=== PATIENT | male | born 1970 | race Caucasian/White ===

== ENCOUNTER 2016-05-27 10:51 | Emergency (ER) | payer OTHER, MEDICARE ==
[2016-05-27 11:14] LABS: ABSOLUTE BASOPHIL COUNT 0.2 /CUMM (0.0-0.2); ABSOLUTE EOSINOPHIL COUNT 0.1 /CUMM (0.0-0.7); ABSOLUTE GRANULOCYTE CT 6.4 /CUMM (1.4-6.5); ABSOLUTE MONOCYTE COUNT 0.6 /CUMM (0.10-0.60); BASOPHIL % 2.1 % (0.0-2.0); EOSINOPHIL % 1.2 % (0-5); GRANULOCYTE % 68.3 % (42.2-75.2); HEMATOCRIT 45.7 % (42-52); MEAN CORPUSCULAR HGB 29.5 PG (27.0-31.0); MEAN CORPUSCULAR VOLUME 86.6 FL (80.0-94.0); MEAN PLATELET VOLUME 7.7 FL (7.4-10.4); PLATELET COUNT 244 /CUMM (130-400); RBC DISTRIBUTION WIDTH 14.3 % (11.5-14.5); RED BLOOD CELL CT 5.27 /CUMM (4.70-6.10); WHITE BLOOD CELL COUNT 9.4 /CUMM (4.8-10.8)
--- NOTE | 2016-05-27 12:18 | ED AMS/SEIZURE/WEAK/DIZZY ---
History of Present Illness General Chief Complaint: Altered Mental Status Stated Complaint: BIBA AMS Source: patient Exam Limitations: poor historian Vital Signs & Intake/Output Vital Signs & Intake/Output Vital Signs Date Time Temp Pulse Resp B/P Pulse O2 O2 Flow FiO2 Ox Delivery Rate 05/27 1429 98.2 98 18 141/86 100 Room Air 05/27 1125 Room Air 05/27 1057 98.3 120 20 161/87 97 Room Air Allergies Coded Allergies: No Known Allergies (05/27/16) Reconcile Medications No Known Home Medications Triage Note: PT BIBA FROM [facility] FOR AMS. 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 THIS AM PT CAME DOWN AND STARTED WORKING OUT. PER EMS STAFF STATES PATIENT WAS ACTING ALTERED AND NOT AT BASELINE. PT DENIES TAKING ANY ILLCIT DRUGS OR CONSUMING ALCOHOL. PT IS ALERT ON ARRIVAL AND ABLE TO ANSWER ALL QUESTIONS. PT DENIES ANY COMPLAINTS Triage Nurses Notes Reviewed? yes HPI: Patient presents for evaluation of altered mental status. Patient's history is somewhat inconsistent. He states he was at the getting ready to work out. He states that the staff at the have never seen his kind of work out before and contacted 911. With further questioning the patient states that he was going to have a cigarette and a couple of coffee when 911 was called. When I first inquired as to why he was in the emergency department, he stated that he got into an argument with "his neighbor". He states he has been at odds with his neighbor for quite some time. Patient denies any threats. (FESTUS PARRY,INOCENCIA Delong) Past History Travel History Traveled to [place] past 21 day No Medical History Any Pertinent Medical History? see below for history Psychiatric: bipolar disease, schizo affective disorder Surgical History Surgical History: non-contributory Psychosocial History What is your primary language Syriac Tobacco Use: Current Daily Use Daily Tobacco Use Amount/Type: => 5 Cigarettes daily ETOH Use: occasional use Illicit Drug Use: denies illicit drug use Family History Hx Contributory? No (FESTUS PARRY,INOCENCIA Delong) Review of Systems Review of Systems Constitutional: Reports: no symptoms. EENTM: Reports: no symptoms. Respiratory: Reports: no symptoms. Cardiovascular: Reports: no symptoms. GI: Reports: no symptoms. Genitourinary: Reports: no symptoms. Musculoskeletal: Reports: no symptoms. Skin: Reports: no symptoms. Neurological/Psychological: Reports: no symptoms. Hematologic/Endocrine: Reports: no symptoms. Immunologic/Allergic: Reports: no symptoms. All Other Systems: Reviewed and Negative (FESTUS PARRY,INOCENCIA Delong) Physical Exam Physical Exam General Appearance: see below Comments: Gen.: Well-nourished, well-developed, no acute respiratory distress. Head: Normocephalic, atraumatic. Eyes: Normal inspection bilaterally Ears: Normal inspection bilaterally Nose: Normal inspection Throat/mouth : Moist mucosa Neck: Supple, full range of motion, no goiter Heart: Regular rate and rhythm, no murmurs rubs or gallops Lungs: Clear to auscultation bilaterally with normal air entry Chest: Nontender Back: Normal range of motion Abdomen: Soft, nontender, nondistended, normal bowel sounds Extremities: Normal range of motion grossly, equal radial pulses, no cyanosis clubbing or edema Neurologic: Cranial nerves grossly intact, speech is clear Skin: warm and dry Psychiatric: Calm, cooperative, no apparent delusions or hallucinations, moderately pressured speech Core Measures ACS in differential dx? No CVA/TIA Diagnosis: No Severe Sepsis Present: No Septic Shock Present: No (FESTUS PARRY,INOCENCIA Delong) Progress Differential Diagnosis: drug intoxication, SCHIZOAFFECTIVE DISORDER, BIPOLAR DISORDER Plan of Care: Orders Procedure Date/time Status Regular Diet 05/27 D Active Patient Safety Monitor 05/27 1244 Active ED CRISIS PSYCH CONSULT 05/27 1233 Active Add-on Test (ER Only) 05/27 1220 Active THYROID STIMULATING HORMONE 05/27 1104 Complete URINE DRUG SCREEN FOR ER ONLY 05/27 1100 Complete ETHANOL 05/27 1100 Complete COMPREHENSIVE METABOLIC PANEL 05/27 1100 Complete CBC WITHOUT DIFFERENTIAL 05/27 1100 Complete EKG 05/27 1100 Active Current Medications Sig/Mita Start time Last Medication Dose Stop Time Status Admin Lorazepam 2 MG ONCE ONE 05/27 1545 CAN (Ativan) 05/27 1546 Laboratory Tests 05/27/16 1211: Urine Opiates Screen < 100.00, Methadone Screen < 40, Barbiturate Screen < 60, Ur Phencyclidine Scrn < 6.00, Amphetamines Screen 165, U Benzodiazepines Scrn < 85, Urine Cocaine Screen 414 H, Urine Cannabis Screen < 5.00 05/27/16 1104: Anion Gap 9, Estimated GFR > 60, BUN/Creatinine Ratio 11.1, Glucose 220 H, Calcium 9.2, Total Bilirubin 0.7, AST 89 H, ALT 66, Alkaline Phosphatase 64, Total Protein 6.6, Albumin 4.1, Globulin 2.5, Albumin/Globulin Ratio 1.6, TSH 0.592, CBC w Diff NO MAN DIFF REQ, RBC 5.27, MCV 86.6, MCH 29.5, RDW 14.3, MPV 7.7, Gran % 68.3, Lymphocytes % 21.6, Monocytes % 6.8, Eosinophils % 1.2, Basophils % 2.1 H, Absolute Granulocytes 6.4, Absolute Lymphocytes 2.0, Absolute Monocytes 0.6, Absolute Eosinophils 0.1, Absolute Basophils 0.2, PUBS MCHC 34.0, Serum Alcohol < 10.0 Initial ED EKG: sINUS TACHYCARDIA WITH A VENTRICULAR RATE OF 113 Hand-Off Endorsed To: ANABELA REEDER MD Endorsed Time: 2017 Pending: consult (crisis) Comments: 05/27/2016 3:46:12 PM patient awaiting evaluation by crisis. This is partly due to the presence of cocaine in his system. However the patient is now refusing to speak with crisis and just wants to "go downstairs". It appears he is beginning to escalate and become increasingly agitated. I have ordered sedatives. 05/27/2016 8:21:58 PM patient signed out to Dr. Reeder at shift change consultant. (FESTUS PARRY,INOCENCIA Delong) Hand-Off Endorsed To: INOCENCIA ROJAS DO Endorsed Time: 07 Pending: consult (BED SEARCH) (ANABELA REEDER MD) Departure Departure Disposition: STILL A PATIENT Condition: Stable Clinical Impression Primary Impression: Kristine Referrals: PATIENT HAS NO PRIMARY CARE DR (PCP/Family) Departure Forms: Customer Survey General Discharge Information Prescriptions: Current Visit Scripts No Known Home Medications (INOCENCIA MORTENSEN MD) Departure Comments 05/28/16 7 AM Patient was signed out to me by Dr. Reeder. 05/28/16 9:34 AM The patient has been accepted to [facility] in [place] for schizoaffective disorder. Dr. Quiana Stacy has accepted the patient. (INOCENCIA ROJAS DO)
[2016-05-27 14:29] VITALS: BP 141/86
--- NOTE | 2016-05-27 15:19 | ED PSY CRISIS COLLATERAL NOTE ---
Collateral Note Collateral Note Family/Inform/Reagan Contacts: Pt was BIBA from from his residence at the [facility] due to Bizarre behavior. Crisis spoke to Alfie privacy analyst and cell . He reports that over the past month pt has not been acting like himself. Pt normally is very pleasant and friendly. Lately he has been irritable and becoming agitated. He has been instigating arguments with other residents and appears paranoid. They think he is the one who has been purposely putting paper in the toilet to clog it. Over the weekend he was sitting at the pool staring into space for an extensive period of time. He asked several staff members their names over and over again and when he was reminded of their names he would ask them what their real names are. Today pt was very fidgety and irritable and was punching things and reorganizing things over and over. He was looking at one of the staff members (who is an ex-police lieutenant precinct) with an angry face looking like he was getting ready to fight him and the staff member was not even saying anything to him. Pt also was telling staff that he has been misdiagnosed with Bipolar and that he really does not have any mental illness. Alfie would like a call of Pt's final dispo as they needs to prepare for when pt returns and he hopes that pt will be admitted for inpt tx or at least held over night. This clinician also spoke with Sarah Peraza at [facility]. They report that pt has not been compliant with his tx and only sporadically comes for his appointments. He was last seen Apr 24 and was noted to be irritable. Pt has a dx of schizoaffective, but refuses to take medications as he denies that he has any mental health issues. He was discharged from their case management and [facility] due to non-compliance. He has a hx of assaultive behavior and has spent time incarcerated. Pt has a hx of multiple inpt psych admits and was most recently hospitalized at [place] in 2014 due to agitation, SI, and alcohol use.
--- NOTE | 2016-05-27 15:50 | ED PSYCH CRISIS CONSULTATION ---
See Addendum Crisis Consult Basic Assessment Date of Consult: 05/27/16 Responsible Person/Accompanied By: self Insurance Authorization: Insurance #1: Insurance name: MEDICARE A Phone number: Policy number: [id number] Group number: Authorization number: ED Provider: Patient's ED Provider: INOCENCIA MORTENSEN MD Primary Care Physician: Patient's PCP: PATIENT HAS NO PRIMARY CARE DR PCP's Phone Number: Current Psychiatrist: None Chief Complaint: Altered Mental Status Patient's Quote: "I have all the good insurance so admit me for 50 years." Present Illness: Pt was BIBA from from his residence at the [facility] due to Bizarre behavior. Crisis spoke to Alfie concrete floater and cell . He reports that over the past month pt has not been acting like himself. Pt normally is very pleasant and friendly. Lately he has been irritable and becoming agitated. He has been instigating arguments with other residents and appears paranoid. They think he is the one who has been purposely putting paper in the toilet to clog it. Over the weekend he was sitting at the pool staring into space for an extensive period of time. He asked several staff members their names over and over again and when he was reminded of their names he would ask them what their real names are. Today pt was very fidgety and irritable and was punching things and reorganizing things over and over. 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 Pt also was telling staff that he has been misdiagnosed with Bipolar and that he really does not have any mental illness. Alfie would like a call of Pt's final dispo as they needs to prepare for when pt returns and he hopes that pt will be admitted for inpt tx or at least held over night. This clinician also spoke with Sarah Peraza at [facility]. They report that pt has not been compliant with his tx and only sporadically comes for his appointments. He was last seen Apr 24 and was noted to be irritable. Pt has a dx of schizoaffective, but refuses to take medications as he denies that he has any mental health issues. He was discharged from their case management and IOP due to non-compliance. He has a hx of assaultive behavior and has spent time incarcerated. Pt has a hx of multiple inpt psych admits and was most recently hospitalized at [place] in 2015 due to agitation, SI, and alcohol use. Pt 's utox is positive for cocaine. Upon crisis eval pt was completely covered under his blankets including his face. He was yelling screaming and cursing. He would not allow any questions to be asked. He stated that "I'm not answering any questions. just fucking admit me. I have all the good insurance so admit me for 50 years so that I can have all the good things and life and live high on the hog and have all the best doctors and the best food and a car and motor cycle. Find me a bed." Case reviewed with Dr. Grey of Psychiatry who recommended inpt psych tx. He also recommended that pt be given 10mg of zyprexa po or 5mg IM. There are currently no beds on [facility] so a bed search will be done. Alfie at [facility] was notified. Patient's Address: [address] [place] [address] Other Phone Number: Who Do You Live With? Other (see notes) ([facility]) Family/Informants Interviewed: [facility] and [facility] Allergies - Coded Allergies: No Known Allergies (05/27/16) Current Medications - No Known Home Medications Laboratory Results: Laboratory Tests 05/27/16 1211: Urine Opiates Screen < 100.00, Methadone Screen < 40, Barbiturate Screen < 60, Ur Phencyclidine Scrn < 6.00, Amphetamines Screen 165, U Benzodiazepines Scrn < 85, Urine Cocaine Screen 414 H, Urine Cannabis Screen < 5.00 05/27/16 1104: Anion Gap 9, Estimated GFR > 60, BUN/Creatinine Ratio 11.1, Glucose 220 H, Calcium 9.2, Total Bilirubin 0.7, AST 89 H, ALT 66, Alkaline Phosphatase 64, Total Protein 6.6, Albumin 4.1, Globulin 2.5, Albumin/Globulin Ratio 1.6, TSH 0.592, CBC w Diff NO MAN DIFF REQ, RBC 5.27, MCV 86.6, MCH 29.5, RDW 14.3, MPV 7.7, Gran % 68.3, Lymphocytes % 21.6, Monocytes % 6.8, Eosinophils % 1.2, Basophils % 2.1 H, Absolute Granulocytes 6.4, Absolute Lymphocytes 2.0, Absolute Monocytes 0.6, Absolute Eosinophils 0.1, Absolute Basophils 0.2, PUBS MCHC 34.0, Serum Alcohol < 10.0 Past History Psychosocial History Strengths/Capabilities: supportive living environment Physical Limitations (Interventions): none reported Psychiatric Treatment History Psych Treatment Psychiatric Treatment Yes Inpatient Treatment Yes Outpatient Treatment Yes Location of Treatment Multiple Reason for Treatment Schizoaffective Dates of Treatment noncompliant Response to Treatment poor Diagnosis by History: Schizoaffective Substance Use/Abuse History Drug Use/Abuse Substances Used/Abused Yes Substance Used/Abused Cocaine First Use unable to assess Last Used unable to assess How much used/taken unable to assess How often unable to assess For how long unable to assess Route of use unable to assess Substance Abuse Treatment Substance Abuse Treatment Past Substance Abuse TX Yes Inpatient Treatment Yes Outpatient Treatment Yes Location of Treatment multiple Reason for Treatment Alcohol, marijuana, cocaine Dates of Treatment multiple Response to Treatment relapse Current Mental Status Mental Status Orientation: unable to assess Affect: Angry Speech: Evasive, Loud, Pressured Neuro-vegetative: Concentration Poor, Energy Increased, Hyperactivity, Sleep Disturbance Appearance Appearance- Dress/Hygiene: completely covered in blankets Behaviors Thought Process: Irrational, Tangential Thought Content: Entitled, Grandiose, Paranoid Memory: Impaired Insight: Poor SI/HI Risk Assessment Past Suicidal Ideation/Attempts Yes Current Suicidal Ideation/Att No Past Homicidal Ideation/Att: Yes Current Homicidal Ideation/Attempts No Danger To: Property Gravely Disabled: Lack of Insight, Poor Impulse Control, Poor Judgment Risk Factors: high anxiety/distress, history of Violence, history of suicide atmpts, SA/MH hospitalized, substance abuse, poor impulse control, lack of outcome concern, male Lethality Ratin PTSD Checklist PTSD Done? pt unable to participate ED Management Sitter: Yes Restraints: No DSM5/PS Stressors/Medical Prob Diagnosis' (DSM 5, Stressors, Medical): Schizoaffective Bipolar type f25.9, Stim use d/o f14.10 Current GAF: 15 Departure Disposition Psych Medical Clearance Date: 05/27/16 Medically Cleared at: 1530 Time Started: 1530 Time Ended: 1600 Psychiatrist Consulted: Que PARRY,Edward Date Disposition Established: 05/27/16 Time Disposition Established: 1600 Plan for Disposition - Modality: Inpatient Psychiatry Facility: bed search Rationale for Disposition: safety and stabilization Type of IP Admission: PEC Referrals PATIENT HAS NO PRIMARY CARE DR (PCP/Family)
== END 2016-05-28 10:26 | disposition other institution (70) ==
LOC: ERH 10:51
PROVIDERS: Emergency Medicine
DX: F30.9 Manic episode, unspecified (principal)
CPT/HCPCS: 80307; 93005; 93010; 96372; G0463; G0480; J1200; J1630

== ENCOUNTER 2016-07-02 14:46 | Inpatient (IN) | payer OTHER, MEDICARE ==
[~2016-07-02] VITALS: Ht 172.7 cm; Wt 78.9 kg
--- NOTE | 2016-07-02 14:51 | NUR ---
46 YO MALE BIBA ON REGISTERED NURSE SURGICAL SERVICES PAPER FROM [facility]. PER EMS, PT WAS FOUND TO BE SWIMMING IN THE POOL WITH CLOTHES ON AND KNOCKING ON PEOPLES DOOR. ON EVAL FROM [facility] TODAY PT DID NOT SEEM RIGHT SO THEY SENT HIM HERE. PT ARRIVES ALERT, CALM AND COOPERATIVE AT THIS TIME. PT DENIES SI/HI. DENIES ALCOHOL/DRUG USE. SECUIRTY AT BEDSIDE FOR WANDING. SITTER PRESENT
--- NOTE | 2016-07-02 15:18 | ED PSYCHIATRIC COMPLAINT ---
See Addendum History of Present Illness General Chief Complaint: Psychiatric Related Complaint Stated Complaint: BIBA SI Source: patient, old records, EMS Exam Limitations: clinical condition Vital Signs & Intake/Output Vital Signs & Intake/Output Vital Signs Date Time Temp Pulse Resp B/P B/P Pulse O2 O2 Flow FiO2 Mean Ox Delivery Rate 07/02 2221 97.9 96 16 128/72 94 Room Air 07/02 1935 98.1 104 16 134/72 94 Room Air 07/02 1451 97.7 112 18 137/87 98 Room Air ED Intake and Output 07/03 0000 07/02 1200 Intake Total Output Total Balance Patient 174 lb Weight Weight Reported by Patient Measurement Method Allergies Coded Allergies: bupropion (From WELLBUTRIN) (VOMITING, ILL 07/02/16) divalproex sodium (From DEPAKOTE) (VOMITING, ILL 07/02/16) haloperidol (From HALDOL) (VOMITING, ILL 07/02/16) lithium (VOMITING, ILL 07/02/16) lorazepam (From ATIVAN) (VOMITING, ILL 07/02/16) olanzapine (From ZYPREXA) (VOMITING, ILL 07/02/16) spinach (N/V 07/02/16) squash (N/V 07/02/16) sweet potato (N/V 07/02/16) Uncoded Allergies: AVACADO (N/V 07/02/16) ZUCCHINI (N/V 07/02/16) Reconcile Medications No Known Home Medications Triage Note: 46 YO MALE BIBEsmer ON ROLLER STITCHER PAPER FROM [facility]. PER EMS, PT WAS FOUND TO BE SWIMMING IN THE POOL WITH CLOTHES ON AND KNOCKING ON PEOPLES DOOR. ON EVAL FROM [facility] TODAY PT DID NOT SEEM RIGHT SO THEY SENT HIM HERE. PT ARRIVES ALERT, CALM AND COOPERATIVE AT THIS TIME. PT DENIES SI/HI. DENIES ALCOHOL/DRUG USE. SECUIRTY AT BEDSIDE FOR WANDING. SITTER PRESENT Triage Nurses Notes Reviewed? yes Onset: Just prior to arrival Duration: constant, continues in ED Timing: recent history Severity: moderate, severe Associated Symptoms: anxiety, impaired concentration HPI: Patient referred for erratic behavior threatening anxious noncompliant with medications on PEC. He believes people are conspiring to make him sick and are threatening him. He denies fever chills nausea vomiting diarrhea abdominal pain chest pain shortness breath headache dysuria rash bleeding. (LUIS ENRIQUE CHE MD) Past History Travel History Traveled to [place] past 21 day No Medical History Any Pertinent Medical History? see below for history Neurological: NONE EENT: NONE Cardiovascular: NONE Respiratory: NONE Gastrointestinal: NONE Hepatic: NONE Renal: NONE Musculoskeletal: NONE Psychiatric: bipolar disease, schizo affective disorder Endocrine: NONE Blood Disorders: NONE Cancer(s): NONE EMPLOYMENT APPEALS EXAMINER/Reproductive: NONE Surgical History Surgical History: non-contributory Psychosocial History Who do you live with Other (see notes) What is your primary language Bahamian Tobacco Use: Never used Family History Hx Contributory? No (LUIS ENRIQUE CHE MD) Review of Systems Review of Systems Constitutional: Reports: no symptoms. EENTM: Reports: no symptoms. Respiratory: Reports: no symptoms. Cardiovascular: Reports: no symptoms. GI: Reports: no symptoms. Genitourinary: Reports: no symptoms. Musculoskeletal: Reports: no symptoms. Skin: Reports: no symptoms. Neurological/Psychological: Reports: see HPI, anxiety, cognitive dysfunction, confusion. Hematologic/Endocrine: Reports: no symptoms. Immunologic/Allergic: Reports: no symptoms. All Other Systems: Reviewed and Negative (LUIS ENRIQUE CHE MD) Physical Exam Physical Exam General Appearance: well developed/nourished, alert, awake, moderate distress Head: atraumatic, normal appearance Eyes: Bilateral: normal appearance, PERRL, EOMI. Ears, Nose, Throat: normal pharynx, normal ENT inspection, hearing grossly normal Neck: normal inspection, supple, full range of motion, no midline tenderness Respiratory: normal breath sounds, chest non-tender, no respiratory distress, quiet respiration, lungs clear Cardiovascular: regular rate/rhythm, normal peripheral pulses, norml femoral pulses equa Gastrointestinal: normal bowel sounds, soft, non-tender, no organomegaly Extremities: normal range of motion, no ligament instability Neurological/Psychiatric: no motor/sensory deficits, awake, agitated, alert, anxious, agricultural extension agent II-XII nml as tested, disoriented x 3 Appearance/Memory/Insight: disheveled, impaired insight Behavoir/Eye Contact/Speech: cooperative, increased rate of speech Thoughts/Hallucinations: delusions, flight of ideas Skin: intact, normal color, warm/dry SAD PERSONS Done? patient not suicidal (LUIS ENRIQUE CHE MD) Progress Differential Diagnosis: drug intoxication, drug overdose, drug withdrawal, electrolyte abnormality, hypoglycemia Plan of Care: Orders Procedure Date/time Status Regular Diet 07/02 D Active Continuous Observation Monitor 07/03 1515 Active URINE DRUG SCREEN FOR ER ONLY 07/02 151 Complete ETHANOL 07/03 1515 Complete COMPREHENSIVE METABOLIC PANEL 07/03 1515 Complete CBC WITHOUT DIFFERENTIAL 07/03 1515 Complete ED CRISIS PSYCH CONSULT 07/03 1515 Active Laboratory Tests 07/02/16 1530: Anion Gap 13, Estimated GFR > 60, BUN/Creatinine Ratio 10.0, Glucose 154 H, Calcium 8.9, Total Bilirubin 0.4, AST 25, ALT 38, Alkaline Phosphatase 57, Total Protein 6.4, Albumin 4.0, Globulin 2.4, Albumin/Globulin Ratio 1.7, CBC w Diff NO MAN DIFF REQ, RBC 5.25, MCV 87.8, MCH 29.3, RDW 14.9 H, MPV 8.1, Gran % 61.8 , Lymphocytes % 29.9, Monocytes % 5.9, Eosinophils % 2.1, Basophils % 0.3, Absolute Granulocytes 4.8, Absolute Lymphocytes 2.3, Absolute Monocytes 0.5, Absolute Eosinophils 0.2, Absolute Basophils 0, PUBS MCHC 33.4, Serum Alcohol < 10.0 07/02/16 1523: Urine Opiates Screen < 100.00, Methadone Screen < 40, Barbiturate Screen < 60, Ur Phencyclidine Scrn < 6.00, Amphetamines Screen 369, U Benzodiazepines Scrn < 85, Urine Cocaine Screen < 50, Urine Cannabis Screen 8.30 Hand-Off Endorsed To: ANABELA REEDER MD Endorsed Time: 1899 Pending: consult (re eval in AM) (CHINEDU PARRY,LUIS ENRIQUE) Comments: Patient signed out to me by Dr. Che at 7 PM on 07/02/2016. Patient is being held in the emergency department overnight. Reevaluation by psychiatry in the morning. Patient sent back out to Dr. Che at 0700 hrs. on 07/03/2016. (LILLI PARRY,ANABELA Peña) Departure Departure Disposition: STILL A PATIENT Condition: Stable Clinical Impression Primary Impression: Bipolar disorder Qualifiers: Active/Remission status: currently active Current bipolar episode type: manic Current episode severity: unspecified Qualified Code: F31.9 - Bipolar disorder, unspecified Referrals: PATIENT HAS NO PRIMARY CARE DR (PCP/Family) Departure Forms: Customer Survey General Discharge Information Prescriptions: Current Visit Scripts No Known Home Medications (CHINEDU PARRY,LUIS ENRIQUE)
--- NOTE | 2016-07-02 15:25 | NUR ---
URINE TRIO SENT TO LAB.
--- NOTE | 2016-07-02 15:32 | NUR ---
BLOOD DRAWN AND SENT TO LAB.
[2016-07-02 16:09] LABS: ABSOLUTE BASOPHIL COUNT 0 /CUMM (0.0-0.2); ABSOLUTE EOSINOPHIL COUNT 0.2 /CUMM (0.0-0.7); ABSOLUTE GRANULOCYTE CT 4.8 /CUMM (1.4-6.5); ABSOLUTE LYMPH COUNT 2.3 /CUMM (1.2-3.4); ABSOLUTE MONOCYTE COUNT 0.5 /CUMM (0.10-0.60); BASOPHIL % 0.3 % (0.0-2.0); EOSINOPHIL % 2.1 % (0-5); GRANULOCYTE % 61.8 % (42.2-75.2); HEMATOCRIT 46.1 % (42-52); MEAN CORPUSCULAR HGB 29.3 PG (27.0-31.0); MEAN CORPUSCULAR HGB CONC 33.4 G/DL (33.0-37.0); MEAN CORPUSCULAR VOLUME 87.8 FL (80.0-94.0); MEAN PLATELET VOLUME 8.1 FL (7.4-10.4); PLATELET COUNT 196 /CUMM (130-400); RBC DISTRIBUTION WIDTH 14.9 % (11.5-14.5); RED BLOOD CELL CT 5.25 /CUMM (4.70-6.10); WHITE BLOOD CELL COUNT 7.7 /CUMM (4.8-10.8)
--- NOTE | 2016-07-02 16:22 | NUR ---
PT WALKED FROM ROOM 11 TO ROOM 15
--- NOTE | 2016-07-02 17:07 | NUR ---
CRISIS AT BEDSIDE
--- NOTE | 2016-07-02 17:36 | NUR ---
PT AMBULATORY TO RESTROOM WITH STEADY GAIT. PT MET WITH CRISIS. PT LYING ON BED IN ROOM 15. SITTER AT DOOR.
--- NOTE | 2016-07-02 18:45 | NUR ---
PT ASLEEP IN ROOM 15. RESPIRATIONS EQUAL AND UNLABORED. SITTER AT DOOR FOR SAFETY.
--- NOTE | 2016-07-02 19:08 | ED PSYCH CRISIS CONSULTATION ---
See Addendum Crisis Consult Basic Assessment Date of Consult: 07/02/16 Responsible Person/Accompanied By: self/biba on pec Insurance Authorization: Insurance #1: Insurance name: MEDICARE A Phone number: Policy number: [id number] Group number: Authorization number: ED Provider: Patient's ED Provider: LUIS ENRIQUE CHE MD Primary Care Physician: Patient's PCP: PATIENT HAS NO PRIMARY CARE DR PCP's Phone Number: Current Psychiatrist: none Chief Complaint: Psychiatric Related Complaint Patient's Quote: i'm here because of the stupid staff plant culture manager at [facility]. Present Illness: Pt is a 46 yo male biba to [place] ED this afternoon on a PEC. Pt resides at [facility] and staff called emergency services due to pt making verbal threats towards other residents. Pt has been presenting as increasingly more agitated, bizarre, paranoid and possibly responding to auditory hallucinations. Pt was hospitalized last month at [facility] for similiar reasons but didn't continue medications upon discharge or follow up with aftercare tx at [facility]. Pt had a prior [facility] admission in 2001. Pt has a previous diagnosis of schizoaffective d/o. Reports indicate pt has a hx of etoh abuse and cannabis abuse but pt denies current use. Pt denies si/hi. He reports no family supports. Pt reports that it is the other residents that are trying to threaten and agitate him and the staff are against him. Pt presented as alert, OX3, good eye contact. his reported perception of the stressors at the [facility] are very different than how the [facility] director presented them. He reports recent arrest last week for violation of probation. He currently does not report wanting inpatient psychiatric treatment and denied the need for psychiatric medications. Patient's Address: [address] [place] [id number] Other Phone Number: Who Do You Live With? Other (see notes) ([facility]) Family/Informants Interviewed: collateral provider by [facility] Director Alfie [phone]. and [facility] staff June left a message that Pt discharge report from [facility] indicates he was prescribed Depakote 500 mg qam and zyprexa 5 mg bID. She reports that pt has been refusing tx at [facility]. Allergies - Coded Allergies: bupropion (From WELLBUTRIN) (VOMITING, ILL 07/02/16) divalproex sodium (From DEPAKOTE) (VOMITING, ILL 07/02/16) haloperidol (From HALDOL) (VOMITING, ILL 07/02/16) lithium (VOMITING, ILL 07/02/16) lorazepam (From ATIVAN) (VOMITING, ILL 07/02/16) olanzapine (From ZYPREXA) (VOMITING, ILL 07/02/16) spinach (N/V 07/02/16) squash (N/V 07/02/16) sweet potato (N/V 07/02/16) Uncoded Allergies: AVACADO (N/V 07/02/16) ZUCCHINI (N/V 07/02/16) Current Medications - No Known Home Medications Laboratory Results: Laboratory Tests 07/02/16 1530: Anion Gap 13, Estimated GFR > 60, BUN/Creatinine Ratio 10.0, Glucose 154 H, Calcium 8.9, Total Bilirubin 0.4, AST 25, ALT 38, Alkaline Phosphatase 57, Total Protein 6.4, Albumin 4.0, Globulin 2.4, Albumin/Globulin Ratio 1.7, CBC w Diff NO MAN DIFF REQ, RBC 5.25, MCV 87.8, MCH 29.3, RDW 14.9 H, MPV 8.1, Gran % 61.8 , Lymphocytes % 29.9, Monocytes % 5.9, Eosinophils % 2.1, Basophils % 0.3, Absolute Granulocytes 4.8, Absolute Lymphocytes 2.3, Absolute Monocytes 0.5, Absolute Eosinophils 0.2, Absolute Basophils 0, PUBS MCHC 33.4, Serum Alcohol < 10.0 07/02/16 1523: Urine Opiates Screen < 100.00, Methadone Screen < 40, Barbiturate Screen < 60, Ur Phencyclidine Scrn < 6.00, Amphetamines Screen 369, U Benzodiazepines Scrn < 85, Urine Cocaine Screen < 50, Urine Cannabis Screen 8.30 (ROSANGELA PERRY LCSW) Past History Past Medical History Neurological: NONE EENT: NONE Cardiovascular: NONE Respiratory: NONE Gastrointestinal: NONE Hepatic: NONE Renal: NONE Musculoskeletal: NONE Psychiatric: bipolar disease, schizo affective disorder Endocrine: NONE Blood Disorders: NONE Cancer(s): NONE FAMILY AND CONSUMER SCIENCE PROFESSOR/Reproductive: NONE Past Surgical History Surgical History: non-contributory Psychosocial History Strengths/Capabilities: supportive living environment Physical Limitations (Interventions): none reported Psychiatric Treatment History Psych Treatment Psychiatric Treatment Yes Inpatient Treatment Yes Outpatient Treatment Yes Location of Treatment Most recent inpatient [facility] May2016; recent [facility] intake Reason for Treatment diagnosed schizoaffective d/o - engagaing in bizarre behavior. agitated; threatening towards others. Response to Treatment pt is non-compliant with medications Diagnosis by History: Schizoaffective Substance Use/Abuse History Drug Use/Abuse Substances Used/Abused Yes Substance Abuse Treatment Substance Abuse Treatment Past Substance Abuse [place] Yes Comments: pt has a reported hx of alcohol abuse. he minimizes current use. He reports current use is infrequent. (ROSANGELA PERRY LCSW) Current Mental Status Mental Status Orientation: Person, Place, Situation Affect: Anxious, Angry Speech: WNL Neuro-vegetative: Sleep Disturbance Appearance Appearance- Dress/Hygiene: hospital scrubs; disheveled; eyes blood shot Behaviors Thought Process: WNL Thought Content: Paranoid Memory: WNL Insight: Fair SI/HI Risk Assessment Past Suicidal Ideation/Attempts No Current Suicidal Ideation/Att No Past Homicidal Ideation/Att: Yes Current Homicidal Ideation/Attempts No (he denies hi) Degree of Intent: None Danger To: Others Gravely Disabled: Inability, Lack of Insight, Poor Impulse Control, Poor Judgment Risk Factors: high anxiety/distress, SA/MH hospitalized, substance abuse, isolate/no social support, poor impulse control, male, limited support Lethality Ratin PTSD Checklist PTSD Done? patient declined ED Management Sitter: Yes Restraints: No (ROSANGELA PERRY LCSW) DSM5/PS Stressors/Medical Prob Diagnosis' (DSM 5, Stressors, Medical): Schizoaffective D/o (F25.0) housing ([facility]) conflicts probation Current GAF: 25 Comments: [facility] Director reports pt has been presenting as bizarre, agitated and threatening past month. Pt resided at [facility] for prior 14 months without incident. Pt recently hospitalized at [facility] and has been non-compliant with medication and follow up therapy since discharge. (ROSANGELA PERRY LCSW) Departure Disposition Psych Medical Clearance Date: 07/02/16 Medically Cleared at: 1700 Time Started: 1705 Time Ended: 1745 Psychiatrist Consulted: Laurie Issa MD Date Disposition Established: 07/02/16 Time Disposition Established: 1750 Plan for Disposition - Modality: H/O re-eval in morning Rationale for Disposition: H/O for re-eval in morning. Contact collateral [facility] and foreign policy officer. Dr Issa ordered Abilify 10mg; tegretol 200mg bID and propanolol 10 mg up to 3x/day as needed. Pt refusing to take medications. Pt states "I'd rather spend the rest of my life in care home then be a pill popper". Referrals PATIENT HAS NO PRIMARY CARE DR (PCP/Family) (ROSANGELA PERRY LCSW) Disposition Psych Medical Clearance Date: 07/03/16 Medically Cleared at: 0810 Time Started: 0810 Time Ended: 08 Psychiatrist Consulted: Ed Grey MD Date Disposition Established: 07/03/16 Time Disposition Established: 1045 Plan for Disposition - Modality: Bed Search Rationale for Disposition: The patient is exhibiting some manic behavior, is paranoid about the staff at his living situation, and plans to ask the [facility] for help in finding someone to help with his lawsuit against the [facility] staff. Thought processes are illogical and sometimes bizarre. Type of IP Admission: PEC (SUMI WOLF APRN) Addendum Addendum Patient awakened at 0810 today, 07/03/16. He reports he slept well, and is oriented to person, place and day, but not reason he is here. He denies any occurrences of AH or VH, despite reports that he was observed probably responding to internal stimuli. He does not know what his psych meds are for, stating that he has an infection and it takes more than a month to get them [ psychotropics] out of his system. He refers to a sinus infection. He reports his prescribed meds are a nose spray, and inhaler and vitamins. "I'm going through a lawsuit, and some of the people don't want to be sued; they want to get off scot-free." He reports that this is a woman staff member at the [facility] who is always telling lies about him. He is not using an commercial fisherman, stating that he will be his own lead assistant manager. "I'm going to ask the [facility] to find someone to help me." The patient denies use of drugs or alcohol. Utox shows low level of cannabis, otherwise negative. He reports his psychiatric diagnoses as "schizo, psycho, manic." He denies any history of insomnia or symptoms of roseline. Reason for admission to [facility] last month? "Because a staff member lied." Most answers are direct without appreciable delay, but mostly tangential. Moderately pressured speech, but interruptible. He states that he is not eating right because most of his money needs to go to rent. Case discussed with Dr. Grey at 1045, 07/03/16, who feels the patient needs inpatient psychiatry. The patient refuses to sign a voluntary admission application, and a Physician's Emergency Certificate was signed today by Dr. Che. (MARYANN CONTE,SUMI Nina)
--- NOTE | 2016-07-02 20:05 | NUR ---
PT RESTING IN ROOM 15. PT CALM UPON AWAKENING. SITTER AT DOOR FOR SAFETY.
--- NOTE | 2016-07-02 21:55 | NUR ---
PT ASLEEP AT THIS TIME, LYING ON HIS LEFT SIDE. RESPIRATIONS EQUAL AND UNLABORED AT RATE OF 16/MIN. SITTER AT DOOR.
--- NOTE | 2016-07-02 22:41 | NUR ---
PT ASLEEP AT THIS TIME. RESPIRATIONS EQUAL AND UNLABORED. SITTER AT DOOR.
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
--- NOTE | 2016-07-03 05:56 | NUR ---
PT AWAKE AND LYING ON BACK. PT OFFERS NO COMPLAINTS AT THIS TIME.
--- NOTE | 2016-07-03 07:30 | NUR ---
SLEEPING, SITTER IN ATTENDANCE.
--- NOTE | 2016-07-03 10:37 | NUR ---
LUNCH TRAY ORDERED
--- NOTE | 2016-07-03 11:25 | NUR ---
EATING LUNCH, PT ASKING ABOUT POC. STATES, " I GOTTA GET OUT OF HERE". "I NEED TO WORK". PER CRISIS: BED SEARCH.
--- NOTE | 2016-07-03 11:44 | NUR ---
PER ANAYA FROM CRISIS: PT TO BE ADMITTED (BED SEARCH) ON PEC.
--- NOTE | 2016-07-03 12:50 | NUR ---
REFUSING TO ALLOW VS TO BE TAKEN. STATES THAT HE HAS HAD THEM DONE AND THEY ARE IN COMPUTER.
--- NOTE | 2016-07-03 15:05 | NUR ---
FOOD TRAY ORDERED
--- NOTE | 2016-07-03 17:32 | NUR ---
Pt will be admitted tonight to [facility].
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
--- NOTE | 2016-07-03 18:55 | NUR ---
REPORT TO EMMY STOLL.
--- NOTE | 2016-07-03 19:17 | NUR ---
PT NOW AGREES TO GO TO [facility].
[2016-07-03 20:04] VITALS: BP 135/92
--- NOTE | 2016-07-03 21:08 | NUR ---
Patient admitted for the ED. Patient was rude and evasive during assessment, answering most assessment questions with a question ie "do you?" or "how about you?". Patient loud and pressured, worried about items in belonging bags more than treatment. Patient demanded to sign 3-day termination paper, and decided for a probable cause hearing. Patient repeatedly voiced his displeasure of his placement here, against his will, and demanding release tomorrow based on 2 days already spent in ED. Speech clear, coherent. Patient is hyperverbal, ruminiating of certain things. Looking forward to assisting Jose Antonio with mental health needs.
--- NOTE | 2016-07-03 21:13 | History & Physical ---
General Information and HPI MD Statement: I have seen and personally examined KRUNAL RICHEY JR and documented this H&P. The patient is a 46 year old M who presented with a patient stated chief complaint of [ medical evaluation ]. Source of Information: patient Exam Limitations: clinical condition History of Present Illness: Patient came to ER for erratic behavior, anxious, noncompliant with medications. He had delusional thoughts in ER. He was cooperative with me but he was talking irrelevant in between. Because of his tangential thinking, history is limited. He denies fever, chills, nausea, vomiting, abdominal pain, chest pain, SOB, headache, dysuria, rash bleeding. He has one watery BM today. He denied any suicidal/ homicidal ideation, auditory or visual hallucinations. When asked about amphetamines in urine, he mentioned that he was in [facility] and it may have been the medications, he was d/star on psych meds but he is not taking them. Allergies/Medications Allergies: Coded Allergies: bupropion (From WELLBUTRIN) (VOMITING, ILL 07/02/16) divalproex sodium (From DEPAKOTE) (VOMITING, ILL 07/02/16) haloperidol (From HALDOL) (VOMITING, ILL 07/02/16) lithium (VOMITING, ILL 07/02/16) lorazepam (From ATIVAN) (VOMITING, ILL 07/02/16) olanzapine (From ZYPREXA) (VOMITING, ILL 07/02/16) spinach (N/V 07/02/16) squash (N/V 07/02/16) sweet potato (N/V 07/02/16) Uncoded Allergies: AVACADO (N/V 07/02/16) ZUCCHINI (N/V 07/02/16) Home Med list No Known Home Medications Compliance With Home Meds: POOR Past History Travel History Traveled to [place] past 21 day No Medical History Neurological: NONE EENT: NONE Cardiovascular: NONE Respiratory: NONE Gastrointestinal: NONE Hepatic: NONE Renal: NONE Musculoskeletal: NONE Psychiatric: bipolar disease, schizo affective disorder Endocrine: NONE Blood Disorders: NONE Cancer(s): NONE 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 unknown Functional Ability ADLs Independent: dressing, eating, toileting, bathing. Ambulation: independent IADLs Independent: shopping, housework, finances, food prep, telephone, transportation , medication admin. Sexual History Past Sexual History Unobtainable at this time Review of Systems Review of Systems Constitutional: Reports: no symptoms. EENTM: Reports: no symptoms, visual changes. Cardiovascular: Reports: no symptoms. Respiratory: Reports: no symptoms. GI: Reports: no symptoms. Genitourinary: Reports: no symptoms. Musculoskeletal: Reports: no symptoms. Skin: Reports: no symptoms. Neurological/Psychological: Reports: no symptoms. Exam & Diagnostic Data Last 24 Hrs of Vital Signs/I&O Vital Signs Date Time Temp Pulse Resp B/P B/P Pulse O2 O2 Flow FiO2 Mean Ox Delivery Rate 07/04 2003 97.6 84 135/92 07/03 1003 84.0 90 20 132/77 100 Room Air 07/03 0607 98.1 77 18 146/85 98 Room Air 07/03 0116 99.1 71 18 165/87 98 Room Air Physical Exam General Appearance Alert, Oriented X3, Cooperative, No Acute Distress Skin No Rashes, No Breakdown HEENT Atraumatic, PERRLA, EOMI, Mucous Membr. moist/pink Neck Supple, No JVD, No thryomegaly, +2 Carotid Pulse wo Bruit Lymphatic Cervical nl Cardiovascular Regular Rate, Normal S1, Normal S2, No Murmurs Lungs Clear to Auscultation, Normal Air Movement Abdomen Normal Bowel Sounds, Soft, No Tenderness, No Hepatospenomegaly Neurological Exam Findings: Normal Gait, Normal Speech, Strength at 5/5 X4 Ext, Normal Tone, Sensation Intact, Cranial Nerves 3-12 NL, Reflexes 2+ Cranial Nerves II through XII: 3 to 12 intact Extremities No Clubbing, No Cyanosis, No Edema, Normal Pulses, No Tenderness/ Swelling Vascular Normal Pulses, Pulses Symmetrical Last 24 Hrs of Labs/Jayjay: Laboratory Tests 07/02 07/02 1530 1523 Chemistry Sodium (137 - 145 mmol/L) 137 Potassium (3.5 - 5.1 mmol/L) 3.6 Chloride (98 - 107 mmol/L) 101 Carbon Dioxide (22 - 30 mmol/L) 23 Anion Gap (5 - 16) 13 BUN (9 - 20 mg/dL) 8 L Creatinine (0.7 - 1.2 mg/dL) 0.8 Estimated GFR (>60 ml/min) > 60 BUN/Creatinine Ratio (7 - 25 %) 10.0 Glucose (65 - 99 mg/dL) 154 H Calcium (8.4 - 10.2 mg/dL) 8.9 Total Bilirubin (0.2 - 1.3 mg/dL) 0.4 AST (17 - 59 U/L) 25 ALT (21 - 72 U/L) 38 Alkaline Phosphatase (< 127 U/L) 57 Total Protein (6.3 - 8.2 g/dL) 6.4 Albumin (3.5 - 5.0 g/dL) 4.0 Globulin (1.9 - 4.2 gm/dL) 2.4 Albumin/Globulin Ratio (1.1 - 2.2 %) 1.7 Hematology CBC w Diff NO MAN DIFF REQ WBC (4.8 - 10.8 /CUMM) 7.7 RBC (4.70 - 6.10 /CUMM) 5.25 Hgb (14.0 - 18.0 G/DL) 15.4 Hct (42 - 52 %) 46.1 MCV (80.0 - 94.0 FL) 87.8 MCH (27.0 - 31.0 PG) 29.3 RDW (11.5 - 14.5 %) 14.9 H Plt Count (130 - 400 /CUMM) 196 MPV (7.4 - 10.4 FL) 8.1 Gran % (42.2 - 75.2 %) 61.8 Lymphocytes % (20.5 - 51.1 %) 29.9 Monocytes % (1.7 - 9.3 %) 5.9 Eosinophils % (0 - 5 %) 2.1 Basophils % (0.0 - 2.0 %) 0.3 Absolute Granulocytes (1.4 - 6.5 /CUMM) 4.8 Absolute Lymphocytes (1.2 - 3.4 /CUMM) 2.3 Absolute Monocytes (0.10 - 0.60 /CUMM) 0.5 Absolute Eosinophils (0.0 - 0.7 /CUMM) 0.2 Absolute Basophils (0.0 - 0.2 /CUMM) 0 PUBS MCHC (33.0 - 37.0 G/DL) 33.4 Toxicology Urine Opiates Screen (>2000 NG/ML) < 100.00 Methadone Screen (>300 NG/ML) < 40 Barbiturate Screen (>200 NG/ML) < 60 Ur Phencyclidine Scrn (>25 NG/ML) < 6.00 Amphetamines Screen (>1000 NG/ML) 369 U Benzodiazepines Scrn (>200 NG/ML) < 85 Urine Cocaine Screen (>300 NG/ML) < 50 Urine Cannabis Screen (>50 NG/ML) 8.30 Serum Alcohol (<10 MG/DL) < 10.0 Diagnostic Data EKG Results not done in er. ordered CXR Results not done Assessment/Plan Assessment: # Schizoaffective disorder: agree with psychiatry care. As Ranked By This Provider Problem List: 1. Schizoaffective disorder Miscellaneous Miscellaneous Documentation Attending Case Discussed With: KIANNA PARRY,MAIRA Llamas Primary Care Physician: PATIENT HAS NO PRIMARY CARE DR Patient sees these Specialists none Level of Patient Care: EMMY Ferris
--- NOTE | 2016-07-03 23:05 | Admission Certification ---
Admission Certification Certification Statement - As attending physician, I certify that at the time of - admission, based on clinical presentation, severity of - symptoms, need for further diagnostic testing and - therapeutic interventions, and risk of adverse outcomes - without in-hospital treatment, in my clinical assessment, - this patient requires an acute hospital stay for a minimum - of two nights or longer. I have also considered psychsocial - factors such as support system, advanced age, financial - issues, cognitive issues, and failed out-patient treatments, - past re-admission history, safety of patient, and lack of - compliance as applicable. Specific rationale supporting this admission is: Schizoaffective disorder
--- NOTE | 2016-07-04 04:04 | NUR ---
FAIR SLEEP OVERNIGHT. UP AND DOWN MOST OF NIGHT,OBSERVED PEEKING IN OTHER PT'S ROOMS AT TIMES.INSTRUCTED NOT TO DO IT. DOESN'T LISTEN VERY WELL TO STAFF. REFUSED ANY PRN'S OFFERED TO HIM.
[2016-07-04 07:58] VITALS: BP 152/78
--- NOTE | 2016-07-04 11:55 | SOCIAL WORKER PROG NOTE PSYCH ---
Social Work Progress Note Progress Note Pt signed releases for Care, [place] [employer], and [employer]. Attempted to meet with pt to do his social hx, but he declined to participate expressing that it is too painful to talk about his past.
[2016-07-04 12:09] VITALS: BP 119/71
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
[2016-07-04 19:43] VITALS: BP 117/72
--- NOTE | 2016-07-04 19:54 | CPS MD/APRN INITIAL ASSE PSYCH ---
Psychiatric Admission Water Main Pipe Layer's Note Reviewed: Yes Patient Seen and Examined: Yes Identifying Information: This is the first admission to our inpatient unit since 2001 for a 46-year-old single man currently residing at the [facility], and unemployed/ disabled. Chief Complaint: "I'm here because of the stupid staff marketing and public relations manager at the [facility]." Reaction to Hospitalization: declined admission and was subsequently admitted to hospital on a P.E.C. as "gravely disabled" History of Present Illness Onset of Illness: Patient had been experiencing escalating interpersonal disagreements/conflicts with other residents and now the marketing and public relations manager of the [facility] for approximately two months; prior to this he had lived relatively quietly there for about a year. Circumstances Leading to Admission: Staff of [facility] became involved over an ongoing dispute between patient and the management/marketing and public relations manager of the [facility]; patient appeared to be mentally impaired and was sent into the E.D. via ambulance on an SOLAR ELECTRIC INSTALLER request for psychiatric evaluation. Problem(s) Justifying Need for Admission: unclear Other HPI: Patient has been a client of [facility] in [facility], seeing Corina Rdz ( next appointment scheduled for 07/18/2016) but is refusing to consider taking any psychotropic medications and did not show up for a scheduled SALES SUPERVISOR appointment last month. Past Psychiatric History Past Diagnosis(es)- if any: During most recent admission to our inpatient unit in 2001 patient received the diagnosis of: Schizoaffective Disorder previously, in 1998 he was diagnosed as: Psychosis NOS R/O Bipolar Disorder (he was just hospitalized at [facility] in late 05/2016 but refused to sign a JASE so that discharge summary from that admisison could be obtained) Past Precipitating Factors- if any: Patient had been sent to the E.D. from the [facility] on 05/27/2016 due to discord between him and staff at the ; he was then admitted to [facility], at that time. - Include inpatient and outpatient treatment Treatment History: unclear due to patient's refusal to cooperate in the gathering of background history; he had not received any psychiatric treatment at [facility] since his admission to our inpatient unit in 2001 (and previously in 1998) History of Suicide Attempts or Gestures unknown Substance Abuse History: by history, at one time was using/abusing Marijuana but current urine tox. screen on 07/02/2016 was negative but the one during E.D. visit on 05/27/2016 did show the presence of cocaine; GIOVANNA on both above occasions was less than 10.0 Allergies: Coded Allergies: bupropion (From WELLBUTRIN) (VOMITING, ILL 07/02/16) divalproex sodium (From DEPAKOTE) (VOMITING, ILL 07/02/16) haloperidol (From HALDOL) (VOMITING, ILL 07/02/16) lithium (VOMITING, ILL 07/02/16) lorazepam (From ATIVAN) (VOMITING, ILL 07/02/16) olanzapine (From ZYPREXA) (VOMITING, ILL 07/02/16) spinach (N/V 07/02/16) squash (N/V 07/02/16) sweet potato (N/V 07/02/16) Uncoded Allergies: AVACADO (N/V 07/02/16) ZUCCHINI (N/V 07/02/16) Home Med List: no known home medications - Include any medical condition(s) that may - impact the patient's recovery/remission Past History Medical History Neurological: NONE EENT: NONE Cardiovascular: NONE Respiratory: NONE Gastrointestinal: NONE Hepatic: NONE Renal: NONE Musculoskeletal: NONE Psychiatric: schizo affective disorder (R/O bipolar spectrum disorder), substance abuse (evidence of recent cocaine use) Endocrine: NONE Blood Disorders: NONE Cancer(s): NONE BIKE ASSEMBLER/Reproductive: NONE Isolation History: Standard Surgical History Surgical History: none Psychiatric Family/Social Hx Family History Psychiatric Illness: unknown (undisclosed by patient) Substance Use: unknown Suicides: unknown Other Family History: unknown due to patient refusal on more than one occasion to cooperate with taking of social history Social History Living Situation: (see above under "Identifying Information") Significant Relationships (family/friends): unknown Education: unknown Vocation/Occupation: disabled Legal: currently on probation and had been arrested about a week ago for violation of probation; review of Judicial Website showed several prevous arrests but mostly for minor charges such as disorderly conduct; no evidence of any arrests for violent crimes Other Social History: unknown Healthly Behaviors Screening Tobacco Screening Tobacco Use from ED Docu: Never used - If tobacco counseling indicated - the following topics are required. - #1 Recognizing dangerous situations. - #2 Coping Skills. - #3 Basic information about quitting. Status of Tobacco Cessation Counseling: N/A B/C NO TOB USE Cessation Med Status: No Tobacco Use last 30d Alcohol Screening - ETOH screen POS if BAL >=80 or Audit-C>= M4/F3 Audit-C Score from Diag Assess: 4 Blood Alcohol Level: GIOVANNA = less than 10.0 Alcohol Use Screening Results: Neg per Audit C &/or BAL - If ETOH counseling indicated - the following topics are required. - #1 Express concern about the patient's - drinking at unhealthy levels, include informing - of national norms for moderate drinking: - men <= 14 drinks/week, max 4 drinks/occasion - women <= 7 drinks/week, max 3 drinks/occasion - #2 Providing feedback, including linking alcohol to - negative physical effects (liver injury, hypertension) - negative emotional effects (relationship problems and - depression) - negative occupational consequences (reduced work - performance) - #3 Advising the patient to abstain from alcohol or - to drink below national norms for moderate drinking - (as listed above). Status of ETOH Use Counseling: N/A B/C NO ETOH Use Metabolic Screening - Screen if on a Neuroleptic Medication - Metabolic screening should include: - Blood Pressure, BMI, Glucose or Hgb A1c, & a - Lipid profile from within the past 365 days. Metabolic Screening ([x]) Not Applicable, patient not on a neuroleptic. OR () Patient on a neuroleptic(s) . Enter below results for Glucose or Hemoglobin A1C, and lipid panel if obtained during the last 365 days. BMI: 26.400 Blood Pressure: 148/80 Laboratory Results (If applicable): Exam and Plan Mental Status Examination Ambulation Status: without assistance Appearance: somewhat disheveled, tired appearing (as if hadn't slept well recently) Attitude towards examiner: quite negative, if not openly hostile Psychomotor activity: at least mildly agitated, restless, pacing Behavior: angry, hostile, verbally abusive, profane Quality of speech: emphatic, loud, hostile, belligerent Affect: constricted, tense and angry Mood: dysphoric, irritable, but denied being depressed Suicidal Ideation: none expressed Homicidal Ideation: though angry, hostile and somewhat menacing at times, there was no expression of homicidal threats Hallucinations: no evidence to suggest Paranoid/Delusional Material: appears to be paranoid but no ashly delusions noted Difficulties with thought organization: difficult to ascertain due to lack of willingness to engage Insight: nil Judgment: poor Orientation: full Cognition: grossly intact but refused most verbal interactions Memory Function: unable to assess Estimate of intellectual functioning: average Assets/Strengths Patient Identified Assets/Strengths: (none noted) Impression/Plan Impression and Plan: This patient presents as hostile, unwilling to be in hospital (refused to sign in as a voluntary patient and admitted on a P.E.C., thereafter requesting a Probable Cause hearing) and refusing most requests for information (though he did sign JASE's for [place] [employer], [facility] and the [facility]). We have received little information from [facility] where he has recently been seen (?but only briefly). At the time of previous admissions to our inpatient unit in 1998 and 2001, patient received diagnoses of psychotic or schizoaffective disorders. He is likely at least somewhat paranoid at baseline, either as an enduring character trait and/or related to chronic psychotic thought processes. Currently, patient is refusing most requests for information and will not accept any psychotropic medication; we will not administer any unless there develops a risk to the safety of patient and/or others in immmediate environment. Patient has requested a Probable Cause hearing. - Include all active medical diagnosis that require tx DSM 5 Diagnosis(es): Schizoaffective Disorder R/O Bipolar spectrum disorder R/O Schizoprhenia with current paranoid ideation - Initial Tx Plan for Active Psych & Medical Conditions Treatment Plan: --we will continue to monitor and closely observe patient's behavior pending the Probable Cause hearing which will be scheduled by the court --given patient's refusal to accept psychotropic medication therapy he will not be given medications unless in our judgment he presents an imminent risk/danger of behavior possibly injurious to himself or others --we will try to obtain more information from [facility] --we will continue to request that patient sign JASE so that discharge summary from [facility] (from 05/2016 admission) can be obtained --we will try to obtain the record from 2001 [place] inpatient admission from [facility] in [place], [place]. --we will inquire as to any relatives or friends who could provide additional information/history --we will continue our attempts to engage patient in a dialogue which could possibly be of benefit to him in terms of continuing his residence at the [facility] --we will continue our attempts to engage patient in a dialogue which could possibly assist him with current violation of probation charge - Factors that would help patient function - in a less restrictive setting. Factors: --patient becoming willing to engage with staff in formulating treatment and discharge planning
--- NOTE | 2016-07-04 21:40 | NUR ---
PT IS ISOLATIVE AND WITHDRAWN, REMAINING IN BED FOR MAJORITY OF EVENING. IRRITABLE EDGE, EASILY AGITATED. GREW IRRITABLE WHEN OBTAINING 2000 VITAL SIGNS AND WAS VULGAR AND PROFANE WHEN THIS MHW ASKED IF HE WANTED TO MEET WITH THE PSYCHIATRIST. REFUSING MEDS. NO COMPLAINTS OR SI REPORTED. PT HAS A IRRTIABLE MOOD AND AFFECT.
[2016-07-05 07:50] VITALS: BP 142/80
--- NOTE | 2016-07-05 11:20 | NUR ---
Will be discharged to [facility]. Ic Designer [employer] has ordered his release. Patient will be staying until after lunch meal. Mood is stable, denied thoughts of self harm when asked.
[2016-07-05] MEDS ORDERED: OLANZAPINE10 M1 PO (11:27)
--- NOTE | 2016-07-05 11:44 | SOCIAL WORKER PROG NOTE PSYCH ---
Social Work Progress Note Progress Note Attempted to meet with pt for his social hx again and he continues to refuse to participate.
[2016-07-05 11:59] VITALS: BP 148/80
--- NOTE | 2016-07-05 12:25 | SOCIAL WORKER PROG NOTE PSYCH ---
Social Work Progress Note Progress Note Called Jose Antonio's surveillance dual rate officer and left a message inviting him in for the probate hearing this morning. Asked that he call back before 9:15am. At 10a we convened for the probate hearing. At the hearing was Head Rigger Ivone Palomino ( probate realtime court reporter), Griselda Guerra (nursing home physician), Pararescue Managerchetan Gonzalez, Dr. Grey, Jose Antonio and I. Dr. Grey provided testimony about Jose Antonio's behavior since on the unit and proposed some questions that effect his clinical care. He was informed that he would no longer be able to live at the [facility] and that he can 't be on the property. He didn't seem too bothered by this information and stated he will just find another place to live. We expressed concern for the situation, but he stated he was a grown man and didn't need anyone's help. He said he has a friend he can probably stay with and would manage. The Head Rigger didn 't find any evidence of him needing to stay as he is not gravely disabled as his PEC indicated from the ER. Pararescue Manager Carlos offered to help Jose Antonio with contacting Alfie (director at [facility]) about making arrangements to get his things. I gave the management retail intern the contact information for Alfie. Contacted [facility] and made follow up appts. He will see Corina Rdz on 07/10 at 11am and Kaykay Raza APRN on 07/09 at 3pm. Asked Jose Antonio where he would be going when he leaves? He said that he would most likely end up at friends, but he had several stops to make along the way.
--- NOTE | 2016-07-05 12:42 | CP SOUTH PROGRESS NOTE PSYCH ---
Psych (Inpt) Progress Note Progress Note Include the following elements, when applicable: Involvement in the active treatment of the patient with behavioral observations of the patient and the patient's response to the treatment. Review of the ongoing treatment process in the context of the treatment plan. Indication of how multi-disciplinary staff members are carrying out the treatment plan. Plans for future interventions and recommendations for revision of the treatment plan. Liaison with other physicians/providers. Progress Note: PSYCHIATRIST NOTE (PROBABLE CAUSE HEARING/DISCHARGE ON AUTO BODY REPAIRMAN ORDER), 07/05: I discussed this patient's behavior to date, current mental status, treatment and discharge plans with staff team today in the daily morning ITTM. Patient once again refused to engage in a full interview with me early this morning, telling me he would only speak with me in the presence of his owner manager which would be this morning at the scheduled Probable Cause hearing. In the hearing, patient maintained self-control, did not become belligerent or profane or grossly irrational, and cooperated with his counselor aid, Attovi Gonzalez; as a result of the hearing Reaming Machine Operator For [employer] [facility], Gama Palomino Jr., found that there no longer existed probable cause to maintain patient's current involuntary commitment and released the patient; after a discussion with his traffic law attorney patient agreed to not attempt to return to the [facility] from which he had been barred by the mangement there and told Kan Gonzalez he would be staying with local friends for the present; he also agreed to keep appointments at [facility] with Corina Rdz (next appointment scheduled for 07/18/2016). Patient agreed to stay for lunch before discharging. At the end of the hearing, I tried to reassure the patient that the results of the hearing today in no way made him unwelcome for future services here on [facility] and the [place] [facility] if he should wish them. For additional information about today's hearing and patient's disposition, see Ms. Cerna's progress note from this date; despite several attempts to do so, Ms. Cerna was not able to make contact directly with patient's information assurance officer, Mr. Ridley; she did leave him a message inviting him to attend today's hearing, but he did not make it there.
--- NOTE | 2016-07-05 12:43 | DISCHARGE SUMMARY REPORT-PSYCH ---
Visit Information Visit Dates/Diagnosis' Admission Date: 07/03/16 Discharge Date: 07/05/16 Reason for Admission: " Psy Discharge Primary Diag: Unspecified Mood Disorder with irritability R/O psychotic features (none evident except for possible degree paranoia) Hospital Course Course Allergies: Coded Allergies: bupropion (From WELLBUTRIN) (VOMITING, ILL 07/02/16) divalproex sodium (From DEPAKOTE) (VOMITING, ILL 07/02/16) haloperidol (From HALDOL) (VOMITING, ILL 07/02/16) lithium (VOMITING, ILL 07/02/16) lorazepam (From ATIVAN) (VOMITING, ILL 07/02/16) olanzapine (From ZYPREXA) (VOMITING, ILL 07/02/16) spinach (N/V 07/02/16) squash (N/V 07/02/16) sweet potato (N/V 07/02/16) Uncoded Allergies: AVACADO (N/V 07/02/16) ZUCCHINI (N/V 07/02/16) Discharge HBIPS - Tobacco Use Treatment Offered - EtOH/Drug Use D/O Treatment Offered Metabolic Screening - Screen if on a Neuroleptic Medication - Metabolic screening should include: - Blood Pressure, BMI, Glucose or Hgb A1c, & a - Lipid profile from within the past 365 days.
--- NOTE | 2016-07-23 14:02 | DISCHARGE SUMMARY REPORT-PSYCH ---
Visit Information Visit Dates/Diagnosis' Admission Date: 07/03/16 Discharge Date: 07/05/16 Reason for Admission: "I am here because of the stupid staff esthetician and manager medical spa at the [facility]." Psy Discharge Primary Diag: Schizoaffective Disorder, Mixed; MRE Mixed Hospital Course Significant Lab Findings: LDL =73; GIOVANNA = less than 10.0; urine for drugs of abuse--negative (for complete details of all normal range laboratory data from this admission, see the electronic medical record) Course Complications: none Consultations: patient was seen for an admission medical H&P by Uriel Barth M.D., and followed medically during this admission by the [facility] staff physicians Allergies: Coded Allergies: bupropion (From WELLBUTRIN) (VOMITING, ILL 07/02/16) divalproex sodium (From DEPAKOTE) (VOMITING, ILL 07/02/16) haloperidol (From HALDOL) (VOMITING, ILL 07/02/16) lithium (VOMITING, ILL 07/02/16) lorazepam (From ATIVAN) (VOMITING, ILL 07/02/16) olanzapine (From ZYPREXA) (VOMITING, ILL 07/02/16) spinach (N/V 07/02/16) squash (N/V 07/02/16) sweet potato (N/V 07/02/16) Uncoded Allergies: AVACADO (N/V 07/02/16) ZUCCHINI (N/V 07/02/16) Hospital Course/TX Response: (see also, all initial notes/assessments, daily M.D./GARMENT TAG STRINGER and FERTILIZER MIXER progress notes from this admission in the electronic medical record) Patient was initially hostile, unwilling to be in the hospital (refused to sign in as a voluntary patient), was committed on a P.E.C. from the E.D. and then signed a request for a Probable Cause hearing. Patient was initially irritable, angry, hostile but not threatening. We concluded that patient was likely at least somewhat paranoid at baseline. Patient refused to take, or even discuss, any psychotropic medication. He maintained behavioral control but would not engage in any significant dialogue with staff or other patients. Even on the morning of the Probable Cause hearing patient refused to be interviewed, telling me he would only speak in the presence of his court-appointed manager banquet, Attovi Gonzalez. During the hearing, Sandblast Operator of Probate, Hon. Gama Palomino Jr., did not find patient to be gravely disabled (and the hospital was not contending that he was a current danger to himself or others) and vacated the P.E.C. and patient did not wish to remain in hospital as a voluntary patient, as we offered following the conclusion of the hearing. Patient was helped with post-discharge planning, including where he will be staying if the problems with administration of the [facility] in [facility], are not resolved in patient's favor. Discharge HBIPS - Tobacco Use Treatment Offered Post DC Medications Offered: Not Applicable Post DC Tobacco Treatment Plan: Not Applicable - EtOH/Drug Use D/O Treatment Offered Post DC Medications Offered: NA-No EtOH/Drug Use D/O Post DC EtOH/SubAbuse TX Plan: NA-No EtOH/Drug Use D/O Metabolic Screening - Screen if on a Neuroleptic Medication - Metabolic screening should include: - Blood Pressure, BMI, Glucose or Hgb A1c, & a - Lipid profile from within the past 365 days. Metabolic Screening ([x]) Not Applicable, patient not on a neuroleptic. OR () Patient on a neuroleptic(s) . Enter below results for Glucose or Hemoglobin A1C, and lipid panel if obtained during the last 365 days. BMI: 24.600 Blood Pressure: 178/84 Laboratory Results (If applicable): Discharge Instructions General Discharge Information Discharge Medications: Discharge Medications (dose, route, frequency, indications): Patient had been prescribed low dose Zyprexa in hospital but refused to take any; also, at the time of discharge he refused to accept a prescription for same. Multiple Neuroleptics: ([x]) Not Applicable OR Document below three failed attempts at monotherapy, or a plan to taper to monotherapy, or augmentation of Clozapine. () Patient's Diet: heart healthy Patient's Activity: without restrictions DC Disposition: Patient was referred to resume outpatient appointments with [facility] of [facility], where he was scheduled to meet with Yoni Middleton APRN, next on07/09/2016 at 3pm and Corina Rdz on 07/10/2016 at 11am. Patient said he would be staying with friends in the local area if it were not possible for him to continue his residence at the [facility] (Attovi Gonzalez was helping him with the latter). Recommendations: I would recommend continuing/ongoing attempts to engage patient in discussion and possibly accept a clinical trial on a neuroleptic medication or primary mood stabilizer. Referred To: (see above, under "Disposition") Copies To: YONI MIDDLETON APRN
== END 2016-07-05 13:12 | DRG 885 ==
LOC: ERH 14:46 → CP SOUTH 07-03 17:38 → ERHI 07-03 17:38 → EDBEDREQ 07-03 17:50 → CP SOUTH 07-03 19:36 → ENRESERV 07-03 20:00 → CP SOUTH 07-04 14:35 → ENPENDDIS 07-05 13:30
PROVIDERS: Emergency Medicine; ADMIT Psychiatry & Neurology Addiction Medicine
DX: F39 Unspecified mood [affective] disorder (principal); R45.4 Irritability and anger
CPT/HCPCS: 80307; 93005; 93010; G0463; G0480

== ENCOUNTER 2016-07-17 19:21 | Inpatient (IN) | payer OTHER, MEDICARE ==
[~2016-07-17] VITALS: Ht 172.7 cm; Wt 73.7 kg
[~2016-07-17 19:21] MED LIST: OLANZAPINE10 M1 PO
--- NOTE | 2016-07-17 19:24 | ED GENERAL ADULT ---
History of Present Illness General Chief Complaint: Psychiatric Related Complaint Stated Complaint: BIBA ON PEER PSYCH EVAL Source: patient, old records, EMS, W10 Exam Limitations: intoxication Vital Signs & Intake/Output Vital Signs & Intake/Output Vital Signs Date Time Temp Pulse Resp B/P B/P Pulse O2 O2 Flow FiO2 Mean Ox Delivery Rate 07/18 0604 98.7 88 18 148/96 98 Room Air 07/17 2313 Room Air Allergies Coded Allergies: bupropion (From WELLBUTRIN) (VOMITING, ILL 07/02/16) divalproex sodium (From DEPAKOTE) (VOMITING, ILL 07/02/16) haloperidol (From HALDOL) (VOMITING, ILL 07/02/16) lithium (VOMITING, ILL 07/02/16) lorazepam (From ATIVAN) (VOMITING, ILL 07/02/16) olanzapine (From ZYPREXA) (VOMITING, ILL 07/02/16) spinach (N/V 07/02/16) squash (N/V 07/02/16) sweet potato (N/V 07/02/16) Uncoded Allergies: AVACADO (N/V 07/02/16) ZUCCHINI (N/V 07/02/16) Reconcile Medications Olanzapine 10 MG TABLET 10 MG PO 0800,1999 reduce irritability/impulsivit Triage Note: PT BIBA ON PEER FOR ODD BEHAVIORS. PER EMS, PT WAS WALKING IN AND OUT OF TRAFFIC, TALKING TO AN IMAGINARY DOG AND LOOKING INTO CARS. PER EMS, THE PD HAD BEEN CALLED FOR THIS PT THREE TIMES TODAY. PT DENIES SI/HI OR ETOH/DRUG USE. Triage Nurses Notes Reviewed? yes HPI: Patient brought in on a police paper by ambulance for bizarre behaviors. Patient has been drinking alcohol socially 3. Patient denies any suicidal or homicidal ideations. Patient is agitated upon presentation in the emergency department and is refusing to answer any questions. (LILLI PARRY,ANABELA Peña) Past History Medical History Any Pertinent Medical History? 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 No (LILLI PARRY,ANABELA Peña) Review of Systems Review of Systems Constitutional: Reports: see HPI. (LILLI PARRY,ANABELA Peña) Physical Exam Physical Exam General Appearance: well developed/nourished, alert, awake, moderate distress Head: atraumatic, normal appearance Eyes: Bilateral: PERRL, EOMI. Ears, Nose, Throat: normal pharynx, normal ENT inspection, hearing grossly normal Neck: normal inspection, supple, full range of motion Respiratory: normal breath sounds, chest non-tender, no respiratory distress, lungs clear Cardiovascular: regular rate/rhythm, normal peripheral pulses Gastrointestinal: normal bowel sounds, soft, non-tender, no organomegaly Back: normal inspection, normal range of motion Extremities: normal inspection, normal capillary refill, normal range of motion, no edema Neurologic/Psych: no motor/sensory deficits, awake, alert Skin: intact, normal color Lymphatic: no anterior cervical summer Core Measures ACS in differential dx? No CVA/TIA Diagnosis: No Severe Sepsis Present: No Septic Shock Present: No (LILLI PARRY,ANABELA Peña) Progress Differential Diagnoses I considered the following diagnoses in my evaluation of the patient: [Alcohol intoxication, electrolyte abnormality] Plan of Care: Orders Procedure Date/time Status Regular Diet 07/18 B Active Admit to inpatient psych 07/18 0857 Active ED CRISIS PSYCH CONSULT 07/18 0712 Active Continuous Observation Monitor 07/18 1923 Active URINE DRUGS OF ABUSE 07/18 1923 Complete ETHANOL 07/18 1923 Complete COMPREHENSIVE METABOLIC PANEL 07/18 1923 Complete CBC WITHOUT DIFFERENTIAL 07/18 1923 Complete Laboratory Tests 07/17/16 2305: Anion Gap 13, Estimated GFR > 60, BUN/Creatinine Ratio 12.5, Glucose 90, Calcium 8.5, Total Bilirubin 0.3, AST 26, ALT 43, Alkaline Phosphatase 48, Total Protein 6.1 L, Albumin 3.9, Globulin 2.2, Albumin/Globulin Ratio 1.8, CBC w Diff NO MAN DIFF REQ, RBC 4.89, MCV 86.6, MCH 29.7, RDW 15.0 H, MPV 7.3 L, Gran % 50.7, Lymphocytes % 40.9, Monocytes % 4.9, Eosinophils % 2.5, Basophils % 1.0, Absolute Granulocytes 3.8, Absolute Lymphocytes 3.1, Absolute Monocytes 0.4, Absolute Eosinophils 0.2, Absolute Basophils 0.1, PUBS MCHC 34.3, Serum Alcohol 36.0 07/17/162022: Urine Opiates Screen < 100.00, Methadone Screen < 40, Barbiturate Screen < 60, Ur Phencyclidine Scrn < 6.00, Amphetamines Screen 261, U Benzodiazepines Scrn < 85, Urine Cocaine Screen < 50, Urine Cannabis Screen 6.50 Initial ED EKG: none Hand-Off Endorsed To: SEUN THOMAS MD Endorsed Time: 2317 Pending: other (RE-EVAL ONCE SOBER) Comments: Hold for sobriety and reevaluate (ANABELA REEDER MD) Hand-Off Endorsed To: INOCENCIA MORTENSEN MD Endorsed Time: 07 Pending: other (SEUN THOMAS MD) Differential Diagnoses I considered the following diagnoses in my evaluation of the patient: Comments: 07/18/2016 8:59:39 AM patient signed out to me by Dr. Thomas at shift change agent. Patient to be admitted to inpatient psychiatry. (INOCENCIA MORTENSEN MD) Departure Departure Disposition: STILL A PATIENT Condition: Stable Clinical Impression Primary Impression: Alcohol intoxication Referrals: PATIENT HAS NO PRIMARY CARE DR (PCP/Family) Departure Forms: Customer Survey General Discharge Information (ANABELA REEDER MD) Psych Admission Note Psychiatric Admission: I have reviewed all the pertinent lab results and diagnostic results. GIANFRANCO RICHEYEST Quiana will be admitted to our inpatient Psychiatric unit for treatment and care. (INOCENCIA MORTENSEN MD) Critical Care Note Critical Care Note Critical Care Time: non-applicable (ANABELA REEDER MD)
--- NOTE | 2016-07-17 19:25 | NUR ---
PT BIBA ON PEER FOR ODD BEHAVIOR. PER EMS, PT WAS SEEN WALKING IN AND OUT OF TRAFFIC, TALKING TO AN IMAGINARY DOG AND LOOKING INTO CARS. PER EMS, PT DENIES SI/HI OR ETOH/DRUG USE TODAY.
--- NOTE | 2016-07-17 19:50 | NUR ---
DR REEDER AT BEDSIDE. PT BEING VERBALLY ABUSIVE TO MD AND STAFF
--- NOTE | 2016-07-17 20:30 | NUR ---
PT AGITATED AND SWEARING LOUDLY IN HALLWAY. SECURITY PRESENT. DR REEDER MADE AWARE. PT MEDICATED WITH ZYPREXA 10MG IM, ATIVAN 2MG IM AND BENADRYL 50MG IM. PT CONTINUES TO YELL LOUDLY AND BE UNCOOPERATIVE.
--- NOTE | 2016-07-17 21:55 | NUR ---
PT ASLEEP AT THIS TIME. RESPIRATIONS EQUAL AND UNLABORED. SITTER AT BEDSIDE.
[2016-07-17 23:11] LABS: ABSOLUTE BASOPHIL COUNT 0.1 /CUMM (0.0-0.2); ABSOLUTE EOSINOPHIL COUNT 0.2 /CUMM (0.0-0.7); ABSOLUTE GRANULOCYTE CT 3.8 /CUMM (1.4-6.5); ABSOLUTE LYMPH COUNT 3.1 /CUMM (1.2-3.4); ABSOLUTE MONOCYTE COUNT 0.4 /CUMM (0.10-0.60); EOSINOPHIL % 2.5 % (0-5); GRANULOCYTE % 50.7 % (42.2-75.2); HEMATOCRIT 42.4 % (42-52); MEAN CORPUSCULAR HGB 29.7 PG (27.0-31.0); MEAN CORPUSCULAR HGB CONC 34.3 G/DL (33.0-37.0); MEAN CORPUSCULAR VOLUME 86.6 FL (80.0-94.0); MEAN PLATELET VOLUME 7.3 FL (7.4-10.4); PLATELET COUNT 227 /CUMM (130-400); RED BLOOD CELL CT 4.89 /CUMM (4.70-6.10); WHITE BLOOD CELL COUNT 7.6 /CUMM (4.8-10.8)
--- NOTE | 2016-07-18 01:22 | NUR ---
ASSUMED PRIMARY CARE AT 2330, LABS BEING DRAWN T THAT TIME PT CALM COOP. NO DISTRESS SITTER IN PLACE.
--- NOTE | 2016-07-18 04:00 | NUR ---
SLEEPING AT THIS TIME SITTER AT BEDSIDE.
--- NOTE | 2016-07-18 06:08 | NUR ---
VSS, PT INFORMED BREAKFAST WILL ARRIVE SHORTLY. PT CALLING ARIEL KRAUS "YOURE AN ASSHOLE YOU KNOW THAT"
--- NOTE | 2016-07-18 07:45 | NUR ---
PT ANXIOUS REGARDING BEING IN THE HALLWAY, MOVED TO ROOM 14 FOR COMFORT. SITTER IN ATTENDANCE
--- NOTE | 2016-07-18 08:12 | ED PSYCH CRISIS CONSULTATION ---
Crisis Consult Basic Assessment Date of Consult: 07/18/16 Responsible Person/Accompanied By: self Insurance Authorization: Insurance #1: Insurance name: MEDICARE A Phone number: Policy number: [id number] Group number: Authorization number: ED Provider: Patient's ED Provider: LILLI PARRY,ANABELA Peña Primary Care Physician: Patient's PCP: PATIENT HAS NO PRIMARY CARE DR PCP's Phone Number: Current Psychiatrist: [facility] Chief Complaint: Psychiatric Related Complaint Patient's Quote: "I'm not talking to anyone with out my harp regulator." Present Illness: Pt is a 46yo male who was brought to the ED on a PEER after he was found walking in the middle of the road among traffic, talking to a dog that was not there, looking in people cars, yelling and swearing.Pt has a hx of schizoaffective d/o and is con-compliant with his tx at [facility]. Pt has prior inpt psych admits and was discharged from [facility] on 07/05/16. While in the ED pt was agitated not cooperative. He was yelling and verbally abusive to staff, throwing his food, and spitting on the floor. Pt was medicated and has calmed down. Upon crisis eval, pt was found to be completely covered by blankets and facing the wall with his back to this clinician. Pt stated "I refuse to answer any questions with out my harp regulator present." After that he would not respond to anything this social work supervisor said therefore crisis evaluation was very limited. Case reviewed with Dr. Bridges of psychiatry and pt will be admitted to [facility] on a PEC. Pt was informed of this and had no response. Elizabeth of [facility] notified as well as a voice message was left for Pt's [place] aviation ordnance officer Thomas Ridley ext [phone]. Patient's Address: [address] [place] [address] Other Phone Number: Who Do You Live With? Other (see notes) (unknown) Family/Informants Interviewed: [facility] and probation Allergies - Coded Allergies: bupropion (From WELLBUTRIN) (VOMITING, ILL 07/02/16) divalproex sodium (From DEPAKOTE) (VOMITING, ILL 07/02/16) haloperidol (From HALDOL) (VOMITING, ILL 07/02/16) lithium (VOMITING, ILL 07/02/16) lorazepam (From ATIVAN) (VOMITING, ILL 07/02/16) olanzapine (From ZYPREXA) (VOMITING, ILL 07/02/16) spinach (N/V 07/02/16) squash (N/V 07/02/16) sweet potato (N/V 07/02/16) Uncoded Allergies: AVACADO (N/V 07/02/16) ZUCCHINI (N/V 07/02/16) Current Medications - Scheduled Medications Olanzapine 10 MG TABLET 10 MG PO 0800,1999 reduce irritability/impulsivit #1 TAB Prescribed by KIANNA PARRY,MAIRA Fam on 07/05/16 Laboratory Results: Laboratory Tests 07/17/16 2305: Anion Gap 13, Estimated GFR > 60, BUN/Creatinine Ratio 12.5, Glucose 90, Hemoglobin A1c Pending, Calcium 8.5, Total Bilirubin 0.3, AST 26, ALT 43, Alkaline Phosphatase 48, Total Protein 6.1 L, Albumin 3.9, Globulin 2.2, Albumin/Globulin Ratio 1.8, CBC w Diff NO MAN DIFF REQ, RBC 4.89, MCV 86.6, MCH 29.7, RDW 15.0 H, MPV 7.3 L, Gran % 50.7, Lymphocytes % 40.9, Monocytes % 4.9, Eosinophils % 2.5, Basophils % 1.0, Absolute Granulocytes 3.8, Absolute Lymphocytes 3.1, Absolute Monocytes 0.4, Absolute Eosinophils 0.2, Absolute Basophils 0.1, PUBS MCHC 34.3, Serum Alcohol 36.0 07/17/162022: Urine Opiates Screen < 100.00, Methadone Screen < 40, Barbiturate Screen < 60, Ur Phencyclidine Scrn < 6.00, Amphetamines Screen 261, U Benzodiazepines Scrn < 85, Urine Cocaine Screen < 50, Urine Cannabis Screen 6.50 Past History Past Medical History Neurological: NONE EENT: NONE Cardiovascular: NONE Respiratory: NONE Gastrointestinal: NONE Hepatic: NONE Renal: NONE Musculoskeletal: NONE Psychiatric: schizo affective disorder (R/O bipolar spectrum disorder), substance abuse (evidence of recent cocaine use) Endocrine: NONE Blood Disorders: NONE Cancer(s): NONE 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 Past Surgical History Surgical History: non-contributory Psychosocial History Strengths/Capabilities: has out pt tx at Care Physical Limitations (Interventions): none reported Psychiatric Treatment History Psych Treatment Psychiatric Treatment Yes Inpatient Treatment Yes Outpatient Treatment Yes Location of Treatment [facility] Reason for Treatment schizoaffective Dates of Treatment multiple Response to Treatment noncompliant Diagnosis by History: Schizoaffective Substance Use/Abuse History Drug Use/Abuse Substances Used/Abused Yes Substance Used/Abused Alcohol First Use unable to assess Last Used last night BAL 36 How much used/taken unable to assess How often unable to assess For how long unable to assess Route of use po Substance Abuse Treatment Substance Abuse Treatment Past Substance Abuse [place] No Inpatient Treatment No Outpatient Treatment No Current Mental Status Mental Status Orientation: Confused Affect: Anxious, Angry, Broad, Inappropriate, Labile, Manic Speech: Evasive, Loud Neuro-vegetative: Concentration Poor, Hyperactivity Appearance Appearance- Dress/Hygiene: facing the wall completely covered in blankets Behaviors Thought Process: Disorganized, Flight of Ideas, Irrational Thought Content: Auditory Hallucinations, Delusions, Entitled, Grandiose, Paranoid, Visual Hallucinations Memory: Impaired Insight: Poor SI/HI Risk Assessment Past Suicidal Ideation/Attempts Yes Current Suicidal Ideation/Att No Past Homicidal Ideation/Att: Yes Current Homicidal Ideation/Attempts No Degree of Intent: None Danger To: Others, Property, Self Gravely Disabled: Lack of Insight, Poor Impulse Control, Poor Judgment Risk Factors: access to lethal means, history of suicide atmpts, SA/MH hospitalized, substance abuse, poor impulse control, lack of outcome concern, lives alone, male, limited support Lethality Ratin (most severe) PTSD Checklist PTSD Done? pt unable to participate ED Management Sitter: Yes Restraints: No DSM5/PS Stressors/Medical Prob Diagnosis' (DSM 5, Stressors, Medical): schizoaffective bipolar type f25.9 Current GAF: 15 Departure Disposition Psych Medical Clearance Date: 07/18/16 Medically Cleared at: 0800 Time Started: 0800 Time Ended: 829 Psychiatrist Consulted: Tarun Bridges MD Date Disposition Established: 07/18/16 Time Disposition Established: 829 Plan for Disposition - Modality: Inpatient Psychiatry Facility: [facility] Rationale for Disposition: safety and stabilization Type of IP Admission: PEC Referrals PATIENT HAS NO PRIMARY CARE DR (PCP/Family)
--- NOTE | 2016-07-18 10:12 | NUR ---
POC: PENDING ADMISSION TO [facility]. PT DECLINES RULA
--- NOTE | 2016-07-18 10:18 | NUR ---
REPORT GIVEN TO REBEKAH FROM [facility]
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
--- NOTE | 2016-07-18 10:58 | SOCIAL WORKER PROG NOTE PSYCH ---
Social Work Progress Note Progress Note Pt refuses to participate in social hx
[2016-07-18 11:10] VITALS: BP 143/86
--- NOTE | 2016-07-18 11:11 | NUR ---
46 Y/O MALE ADMITTED TO [facility] ON PEC.PT WITH DX SCHIZOAFFECTIVE D/O WHO WAS BIBA FOR WALKING IN TRAFFIC AND YELLING AT THE CARS..TALKING TO IMAGINARY DOGS AND LOOKING IN CAR WINDOWS. HE WAS AGITATED IN THE EMERGENCY ROOM REQUIRING IM MEDS.UPON ADMISSION PT IS MILDLY AGITATED..REFUSING TO ANSWER MOST OF THE ADMISSION QUESTIONS..KEEPS INSISTING STAFF "HURRY UP WITH THE PAPERS". SECURITY REPORTED PT KEPT CALLING THE POLICE FROM THE EMERGENCY ROOM SO WE WILL MONITOR HIS CALLS. PT IS CURRENTLY ON PROBATION AND HE REFUSED HIS MORNING DOSE OF ZYPREXA
--- NOTE | 2016-07-18 14:08 | PN- Att Addend ---
Attending Addendum Attending Brief Note 46M PMH schizoaffective disorder brought in for acute psychosis, uncooperative, refusing history and exam, no visible acute medical issues. ROS refused Exam refused Current Medications Sig/Mita Start time Last Medication Dose Route Stop Time Status Admin Acetaminophen 650 MG Q6P PRN 07/18 0945 AC PO Al Hydroxide/Mg 30 ML Q4-6 PRN PRN 07/18 0945 AC Hydroxide PO Chlorpromazine 25 MG Q4P PRN 07/18 1300 AC IM Chlorpromazine 25 MG Q4P PRN 07/18 1300 AC PO Diphenhydramine HCl 50 MG ONCE ONE 07/17 2044 DC 07/17 IM 07/17 Diphenhydramine HCl 0 .STK-MED ONE 07/17 2028 DC .ROUTE Gabapentin 300 MG Q6P PRN 07/18 0945 AC PO Lorazepam 2 MG ONCE ONE 07/17 2044 DC 07/17 IM 07/17 Lorazepam 0 .STK-MED ONE 07/17 2029 DC .ROUTE Magnesium Hydroxide 30 ML AT BEDTIME PRN 07/18 0945 AC PO Olanzapine 0 .STK-MED ONE 07/18 1009 DC PO Olanzapine 10 MG BID 07/18 1000 AC PO Olanzapine 10 MG ONCE ONE 07/17 2029 DC 07/17 IM 07/17 Olanzapine 0 .STK-MED ONE 07/17 2028 DC IM Trazodone HCl 50 MG AT BEDTIME NEED.. 07/18 0945 AC PO Laboratory Tests 07/17 Chemistry Sodium (137 - 145 mmol/L) 139 Potassium (3.5 - 5.1 mmol/L) 3.7 Chloride (98 - 107 mmol/L) 105 Carbon Dioxide (22 - 30 mmol/L) 21 L Anion Gap (5 - 16) 13 BUN (9 - 20 mg/dL) 10 Creatinine (0.7 - 1.2 mg/dL) 0.8 Estimated GFR (>60 ml/min) > 60 BUN/Creatinine Ratio (7 - 25 %) 12.5 Glucose (65 - 99 mg/dL) 90 Hemoglobin A1c (4.2 - 5.8 %) 5.8 Calcium (8.4 - 10.2 mg/dL) 8.5 Total Bilirubin (0.2 - 1.3 mg/dL) 0.3 AST (17 - 59 U/L) 26 ALT (21 - 72 U/L) 43 Alkaline Phosphatase (< 127 U/L) 48 Total Protein (6.3 - 8.2 g/dL) 6.1 L Albumin (3.5 - 5.0 g/dL) 3.9 Globulin (1.9 - 4.2 gm/dL) 2.2 Albumin/Globulin Ratio (1.1 - 2.2 %) 1.8 Hematology CBC w Diff NO MAN DIFF REQ WBC (4.8 - 10.8 /CUMM) 7.6 RBC (4.70 - 6.10 /CUMM) 4.89 Hgb (14.0 - 18.0 G/DL) 14.5 Hct (42 - 52 %) 42.4 MCV (80.0 - 94.0 FL) 86.6 MCH (27.0 - 31.0 PG) 29.7 RDW (11.5 - 14.5 %) 15.0 H Plt Count (130 - 400 /CUMM) 227 MPV (7.4 - 10.4 FL) 7.3 L Gran % (42.2 - 75.2 %) 50.7 Lymphocytes % (20.5 - 51.1 %) 40.9 Monocytes % (1.7 - 9.3 %) 4.9 Eosinophils % (0 - 5 %) 2.5 Basophils % (0.0 - 2.0 %) 1.0 Absolute Granulocytes (1.4 - 6.5 /CUMM) 3.8 Absolute Lymphocytes (1.2 - 3.4 /CUMM) 3.1 Absolute Monocytes (0.10 - 0.60 /CUMM) 0.4 Absolute Eosinophils (0.0 - 0.7 /CUMM) 0.2 Absolute Basophils (0.0 - 0.2 /CUMM) 0.1 PUBS MCHC (33.0 - 37.0 G/DL) 34.3 Toxicology Urine Opiates Screen (>2000 NG/ML) < 100.00 Methadone Screen (>300 NG/ML) < 40 Barbiturate Screen (>200 NG/ML) < 60 Ur Phencyclidine Scrn (>25 NG/ML) < 6.00 Amphetamines Screen (>1000 NG/ML) 261 U Benzodiazepines Scrn (>200 NG/ML) < 85 Urine Cocaine Screen (>300 NG/ML) < 50 Urine Cannabis Screen (>50 NG/ML) 6.50 Serum Alcohol (<10 MG/DL) 36.0 Vital Signs Date Time Temp Pulse Resp B/P B/P Pulse O2 O2 Flow FiO2 Mean Ox Delivery Rate 07/18 1110 97.6 91 143/86 07/18 0921 97.0 90 18 132/88 97 Room Air 07/18 0604 98.7 88 18 148/96 98 Room Air 07/17 2313 Room Air Intake & Output 07/18 1600 07/18 0800 07/18 0000 Intake Total Output Total Balance Patient 73.652 kg Weight Plan - Management of psychiatry for schizoaffective disorder and psychosis - Re-consult medicine if acute medical issues arise - Ambulatory for DVT PPx
[2016-07-18 15:43] VITALS: BP 142/71
[2016-07-18 16:25] VITALS: BP 142/71
[2016-07-18 19:23] VITALS: BP 140/78
[2016-07-18 19:31] VITALS: BP 140/78
--- NOTE | 2016-07-18 21:56 | NUR ---
PT HAS IRRITABLE EDGE AND POTENTIAL FOR ANGRY OUTBURTS. PT BECAME UPSET WHEN HE COULD NOT SHAVE EXACTLY WHEN HE WANTED TO DESPITE STAFFS BEST EFFORTS TO REDIRECT. PT FREQUENTLY APPROACHES NURSES STATION ASKING FOR THINGS SUCH SHARPNER, TISSUES, ECT. PT REQUIRES CONSTANT REDIRECTION. AT THE MOMENT HIS MOOD IS STABLE. VS ARE STABLE AND DENIES ANY SI/HI TO THIS MHW.
[2016-07-19] VITALS (10 sets, daily range): BP systolic 143–157; BP diastolic 80–90
--- NOTE | 2016-07-19 04:26 | NUR ---
AWAKE ALL SHIFT REFUSING ANY MEDS OTHER THAN TYLENOL AND ROBITUSSIN.
--- NOTE | 2016-07-19 12:59 | SOCIAL WORKER PROG NOTE PSYCH ---
Social Work Progress Note Progress Note Pt refuses to participate in his social history
--- NOTE | 2016-07-19 14:24 | NUR ---
PT HAS BEEN VISIBLE IN THE [place] TODAY. PT HAS BEEN COOPERATIVE TODAY, MOSTLY DRAWING IN THE [place]. PT HAS BEEN IN SOME GROUPS TODAY, HE DOES NOT INTERACT WITH HIS PEERS BUT DOES WITH STAFF FROM TIME TO TIME. PT DENIES THOUGHTS OF HURTING HIMSELF WHEN ASKED.
--- NOTE | 2016-07-19 15:32 | SOCIAL WORKER PROG NOTE PSYCH ---
Social Work Progress Note Progress Note Jose Antonio filed for a probable cause hearing yesterday upon admission. This was filed with the probate court yesterday. Hearing will be held on Friday at 10am. Jose Antonio was informed of the hearing date. He was disappointed that he had to wait til Friday. I attempted to get Jose Antonio to meet with Dr. Grey and I later. He refused stating he was disrespected and that he's tired of it and he will meet with the DrDayanna on Friday at the hearing. He told me he was not feeling well and that he was congested. He did sound a little nasal. He complained of bleeding from his nose and stated it was going into his brain. I did not see any blood. I asked if he would be willing to sign a release for his small business banking officer? He had called and left a message. He refused. I also asked if he would sign a release for Care? He said no and that they don't help him. I asked where he had been staying since he left and asked about the [facility]? He said he didn't want to talk and really just wanted to be left alone. He was getting irritated. I told him I would tell Dr. Grey what he said. Dr. Grey went in to see him. Jose Antonio told the doctor again that he wasn't feeling well. Dr. Grey offered him something for his symptoms. He didn't seem to want anything at this time. He told Dr. Grey that he would see him on Friday.
--- NOTE | 2016-07-19 15:33 | SOCIAL WORKER TX PLAN PSYCH ---
Treatment Plan - Please Document: - Evidence that there is ongoing collaboration between - the patient and the interdisciplinary team, - including the patient's active participation and - responsibility for engaging in the treatment regimen, - and that the treatment plan is individualized and - relevant to the patient's conditions. - Treatment plan should reflect documentation indicating - that all active therapeutic efforts are included. Strengths/Capabilities: has out pt tx at [facility] Physical Limitations (Interventions): none reported Patient Identified Trmt Goals: "I want to leave the hospital" Discharge Plan: patient will explore outpatient treatment that he is willing to participate in Problem/Goals #1 Problem #1: psychosis Goal (Short Term): patient will explore medications options available to help with symptoms Goal ([facility]): patient will agree to follow up treatment for therapy Interventions: patient will be offered medication management with the psychiatrist, groups on symptoms management, coping skills, relaxation skills, accupuncture. psychotherapist social worker will engage patient and access symptoms, offer assistance with housing and aftercare planning. DSM5/PS Stressors/Medical Prob Diagnosis' (DSM 5, Stressors, Medical): schizoaffective bipolar type f25.9 Current GAF: 15 Treatment Team - Responsibilities of members of the treatment team include: - Medication Management- MD or RETIREMENT ADMINISTRATOR - Medication Administration and Monitoring- Nurse - Group Therapy- Occupational Therapist - 1:1 Therapy,Disch Planning,family involvement-Tread Booker
--- NOTE | 2016-07-19 19:40 | CPS MD/APRN INITIAL ASSE PSYCH ---
Psychiatric Admission Sleeve Sewer's Note Reviewed: Yes Patient Seen and Examined: Yes Identifying Information: This is the 2nd [facility] admission this month for a 46-year-old single man who may still be living at the [facility] since last discharge from [facility] on 07/05/2016 (though he had been told by the tire care manager there that he was evicted, could not return there at that time--patient's Probable Cause Hearing residence director, Atty. 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 Chief Complaint: "I'm not talking to anyone without my residence director." Reaction to Hospitalization: refused to sign in and was committed on a P.E.C. signed by the E.D. attending physician History of Present Illness Onset of Illness: According to Crisis Diagnostic Assessment from the E.D. on 07/18/2016, patient was brought in on a local police PEER "after he was found walking in the middle of the road among traffic, talking to a dog that was not there, looking in people's cars, yelling and swearing." Circumstances Leading to Admission: (see above, under "Onset of Illness") Problem(s) Justifying Need for Admission: police thought patient represented a danger to himself as well as motorists in the vacinity where he was walking in an irratic manner on a local roadway Other HPI: Patient was just discharged from [facility] on 07/05/2016 following his release by Headlight Assembler of Hon. Gama Kapoor following a Probable Cause Hearing held on [facility] (see all admission assessments and daily M.D./CLINICAL MATERIAL HANDLER and AUTOMATIC CAR WASH ATTENDANT progress notes from [facility] admission of 07/03-07/05/2016; all are in the electronic medical record). Past Psychiatric History Past Diagnosis(es)- if any: Unspecified Mood Disorder with psychotic features R/O Schizoaffective Disorder, Mixed Past Precipitating Factors- if any: if patient was still residing at the [facility], there may have continued to be conflict there between patient and other residents and staff ( tire care manager) - Include inpatient and outpatient treatment Treatment History: Patient had recently (on 05/27/2016) presented in the [facility] following disturbances at the [place] [facility]; he was transferred on a P.E.C. to [facility] but did not follow up with treatment or psychotropic medication thereafter. In little more than a month, patient was back in the E.D., on 07/02/2016 and committed to [facility], whereupon he submitted a request for a Probable Cause Hearing thereafter held, 07/05/2016, eventuating in patient's release to the community. He was brought back to the E.D. by police request less than 2 weeks later, on 07/17/2016. History of Suicide Attempts or Gestures patient will not participate in interview Substance Abuse History: It has been noted patient had used Marijuana in the past but urine tox. screening in [facility] on 3 occasions over the past 1+ month showed negative for cannabis; screen otherwise negative except for a low concentration of cocaine in the screen of 05/27/2016; GIOVANNA was positive only once; on 2016 concentration was very low at only 36. Allergies: Coded Allergies: bupropion (From WELLBUTRIN) (VOMITING, ILL 07/02/16) divalproex sodium (From DEPAKOTE) (VOMITING, ILL 07/02/16) haloperidol (From HALDOL) (VOMITING, ILL 07/02/16) lithium (VOMITING, ILL 07/02/16) lorazepam (From ATIVAN) (VOMITING, ILL 07/02/16) olanzapine (From ZYPREXA) (VOMITING, ILL 07/02/16) spinach (N/V 07/02/16) squash (N/V 07/02/16) sweet potato (N/V 07/02/16) Uncoded Allergies: AVACADO (N/V 07/02/16) ZUCCHINI (N/V 07/02/16) Home Med List: no regular medications; refused meds during recent admission to [facility] - Include any medical condition(s) that may - impact the patient's recovery/remission Past History Medical History Neurological: NONE EENT: NONE Cardiovascular: NONE Respiratory: NONE Gastrointestinal: NONE Hepatic: NONE Renal: NONE Musculoskeletal: NONE Psychiatric: schizo affective disorder (R/O bipolar spectrum disorder), substance abuse (evidence of recent cocaine use) Endocrine: NONE Blood Disorders: NONE Cancer(s): NONE TEST PILOT/Reproductive: NONE Other Medical Hx: no abnormalities found on H&P earlier this month; to date has refused to cooperate with physical exam during current admission History of MRSA: No History of VRE: No History of CDIFF: No Isolation History: Standard Surgical History Surgical History: none Psychiatric Family/Social Hx Family History Psychiatric Illness: undisclosed by patient Substance Use: unknown Suicides: unknown Other Family History: (has consistently refused to participate in the taking of any social/family history) Social History Living Situation: (see above, under "Identifying Information") Significant Relationships (family/friends): unknown; does not appear to have any friends where he has been living ([place] [facility]) Education: unknown Vocation/Occupation: unknown but currently disabled Legal: currently on probation (corporate responsibility officer [employer] [facility]) and said to have been arrested the week prior to appearance in [facility] prior to recent [facility] admission less than 2 weeks ago; no known history of any arrests for assault or other violent crimes Other Social History: unknown Healthly Behaviors Screening Tobacco Screening Tobacco Use from ED Docu: Current Daily Use Daily Tobacco Use Amount/Type: => 5 Cigarettes daily - If tobacco counseling indicated - the following topics are required. - #1 Recognizing dangerous situations. - #2 Coping Skills. - #3 Basic information about quitting. Status of Tobacco Cessation Counseling: Counseling Refused (refused interview) Cessation Med Status Pt Refused Cessation Meds Alcohol Screening - ETOH screen POS if BAL >=80 or Audit-C>= M4/F3 Audit-C Score from Diag Assess: 3 Blood Alcohol Level: Laboratory Tests 07/17 2305 Toxicology Serum Alcohol (<10 MG/DL) 36.0 Alcohol Use Screening Results: Neg per Audit C &/or BAL - If ETOH counseling indicated - the following topics are required. - #1 Express concern about the patient's - drinking at unhealthy levels, include informing - of national norms for moderate drinking: - men <= 14 drinks/week, max 4 drinks/occasion - women <= 7 drinks/week, max 3 drinks/occasion - #2 Providing feedback, including linking alcohol to - negative physical effects (liver injury, hypertension) - negative emotional effects (relationship problems and - depression) - negative occupational consequences (reduced work - performance) - #3 Advising the patient to abstain from alcohol or - to drink below national norms for moderate drinking - (as listed above). Status of ETOH Use Counseling: Counseling Refused (GIOVANNA = 36.0 in [facility]) Metabolic Screening - Screen if on a Neuroleptic Medication - Metabolic screening should include: - Blood Pressure, BMI, Glucose or Hgb A1c, & a - Lipid profile from within the past 365 days. Metabolic Screening ([X]) Not Applicable, patient not on a neuroleptic. (has refused to regularly take any neuroleptic medications) OR () Patient on a neuroleptic(s) . Enter below results for Glucose or Hemoglobin A1C, and lipid panel if obtained during the last 365 days. BMI: 24.600 Blood Pressure: 144/79 Laboratory Results (If applicable): Exam and Plan Mental Status Examination Ambulation Status: without assistance Appearance: preoccupied, apprehensive, scanning environment (as if looking for possible danger) Attitude towards examiner: refused to speak with me initially; finally said he would agree to talk with me "on Friday [07/22/2016]" Psychomotor activity: increased, pacing Behavior: extremely guarded, refusing discussion or interview Quality of speech: soft in volume, very sparse (speaking only when spoken to, if at all) but normal rate and tone Affect: constricted, blunted, very serious Mood: very irritable, wanting to be left alone, to not be bothered by anyone Suicidal Ideation: unknown, but has made no statements to that effect since presentation to [facility] Homicidal Ideation: no evidence of Hallucinations: unknown Paranoid/Delusional Material: appears to be very guarded, most likely quite paranoid but not enough content of speech to confirm this or presence of any formal/fixed delusions Difficulties with thought organization: unable to ascertain due to paucity of expressed thought Insight: unable to assess Judgment: appears to be very poor, influenced heavily by probable paranoia Orientation: unable to assess but appears to know place, date, situation (of being involuntarily committed to hospital) Cognition: unable o assess Memory Function: unable to assess; does seem to recall being here recently (and demanded a Probable Cause hearing by name as soon as he arrived on [facility]) Estimate of intellectual functioning: unable to assess Assets/Strengths Patient Identified Assets/Strengths: none provided by patient Impression/Plan Impression and Plan: We are presented with a situation similar to that we faced with regard to this patient less than 2 weeks ago. Patient is markedly guarded, refusing to provide even basic information, likely highly paranoid but saying very little. Thus far he has been generally under behavioral control but can be confrontative and appears threatening at times. He is refusing any medication and we will continue to discuss this and offer medication to patient; however, he will not be given any against his will unless he presents as significant risk to himself or others in the immediate environment. We will continue efforts to engage patient on any level; I have asked him if there is anything we can do to make his confinement here more comfortable. Patient would appear to have a chronic, severe paranoid psychotic disorder, possibly an affective psychosis with prominent paranoid features. - Include all active medical diagnosis that require tx DSM 5 Diagnosis(es): Schizoaffective Disorder, Mixed; MRE irritable/mixed with prominent paranoia/ paranoid features R/O Bipolar spectrum disorder, Mixed, with paranoid psychotic features R/O Schizophrenia with paranoid features - Initial Tx Plan for Active Psych & Medical Conditions Treatment Plan: --we will continue frequent attempts to engage patient in individual interview/ group programming and monitor his expressed thought and behavior up to/until the Probable Cause hearing which will probably be scheduled for early next week ( or 07/23/2016) --we will continue to offer low dose regular and PRN neuroleptic medication and discuss issue of meds with patient at every opportunity --we need to be in direct contact with patient's corporate responsibility officer, Mr. Ridley, prior to the Probable Cause hearing and should request that Mr. Ridley attend that hearing (we left messages inviting him to participate in the recent hearing but he was not in attendance there --we will seek to obtain additional history/backgroud information from most recent treaters at [facility] --we will try to locate family members and request patient's permission to speak with them (with him) - Factors that would help patient function - in a less restrictive setting. Factors: --patient becoming more engaged and willing to speak with us and participlate cooperatively in treatment and discharge planning
--- NOTE | 2016-07-19 20:17 | NUR ---
PT IS SLIGHTLY ISOLATIVE AND WITHDRAWN, THOUGH SPENDING TIME IN [place], IS MOSTLY STAYING IN PERIPHERY. WILL INTERACT WITH OTHERS AT TIMES. PACING UNIT AT TIMES, SLIGHTLY IRRITABLE, AND APPEARS ANXIOUS AT TIMES. MOOD IS STABLE, AFFECT IS FLAT/CONSTRICTED, COMMUNICATION IS DISORGANIZED AT TIMES AND CAN BE LOUD/PRESSURED, AND APPETITE IS NORMAL. PT DENIES SI AT THIS TIME.
[2016-07-20] VITALS (8 sets, daily range): BP systolic 134–145; BP diastolic 75–80
--- NOTE | 2016-07-20 05:28 | NUR ---
SLEPT IN INTERVALS, OOB IN BATHROOM A LOT, DIFFICULT TO REDIRECT. LAUGHING AND TALKING ALOUD TO HIMSELF.
--- NOTE | 2016-07-20 11:07 | SOCIAL WORKER PROG NOTE PSYCH ---
Social Work Progress Note Progress Note Attempted to do social hx with pt. He declined stating that "we already spoke through mental telepathy."
--- NOTE | 2016-07-20 12:30 | NUR ---
PT STATED HIS MOOD WAS GOOD AND HIS GOAL WAS TO RELAX.HE REFUSED HIS MEDS STATING HE DID NOT NEED THEM AND SUGGESTED THAT STAFF TAKE THEM INSTEAD. HE IS IRRITABLE AT TIMES AND BOSSY WITH HIS PEERS IE:TELLING PEERS WHEN THEY CAN USE THE PHONE AND WHERE THEY CAN SIT. HE IS OBSERVED LAUGHING TO HIMSELF AT TIMES. HE DENIES SUICIDAL THOUGHTS AT THIS TIME
--- NOTE | 2016-07-20 15:29 | CP SOUTH PROGRESS NOTE PSYCH ---
Psych (Inpt) Progress Note Progress Note Record reviewed, RN (Yolanda) gave verbal report, medications and vitals reviewed BP 145/80, Pulse 78, Temp 97.9 46yo male who was brought to the ED on a PEER after he was found walking in the middle of the road among traffic, talking to a dog that was not there, looking in people cars, yelling and swearing.Pt has a hx of schizoaffective d/o and is con-compliant with his tx at [facility]. Pt has prior inpt psych admits and was discharged from [facility] on 07/05/16. While in the ED pt was agitated not cooperative. He was yelling and verbally abusive to staff, throwing his food, and spitting on the floor. Pt was medicated and has calmed down. Upon crisis eval, pt was found to be completely covered by blankets and facing the wall with his back to this clinician. Pt stated "I refuse to answer any questions with out my morning show newscast producer present." After that he would not respond to anything this social services director said therefore diagnostic assessment was very limited. on probation, Progress Clerk Thomas Ridley ext [phone] Diagnosis of record: schizoaffective Mental Status Update: Oriented, not interested in interview, but calm and cooperative terse speech/not pressured, reasobnable concentration , normal personal hygiene Thought Process difficult to molding press operator accurately because of his of terse responses denied thinking of self-destruction or violence some delusion about telepathy Plan: Continue same meds re-evaluate tomorrow
--- NOTE | 2016-07-20 22:20 | NUR ---
PT IS OFTEN IN PERIPHERY, PACING ABOUT UNIT, AT TIMES INTERACTING WITH OTHERS. PT HAS DIFFICULTIES AT TIMES BEING APPROPRIATE WHILE IN [place], AT TIMES SHOUTING AT STAFF AND PEERS, BUT CAN BE REDIRECTED. MOOD IS STABLE, AFFECT IS BRIGHT TO FULL RNAGE, COMMUNICATION APPEARS MOSTLY ORGANIZED, BUT LOUD AND PRESSURED AT TIMES. APPETITE IS NORMAL. PT DENIES SI AT THIS TIME.
--- NOTE | 2016-07-21 05:07 | NUR ---
PT REFUSED HS MEDS. PT ANXIOUS, IRRITABLE AT POINTS, BUT IN BEHAVIORAL CONTROL. PT SLEPT- UP EARLY AT 0500.
[2016-07-21 12:27] VITALS: BP 148/84
[2016-07-21 12:32] VITALS: BP 148/84
--- NOTE | 2016-07-21 13:24 | CP SOUTH PROGRESS NOTE PSYCH ---
Psych (Inpt) Progress Note Progress Note BP 148/82, Pulse 82/min, Temp 98.4 Sleep record showed Pt. refused HS meds, slept, psychotic, irritable, convinced he will leave after probate hearing No new labs 46yo male who was brought to the ED on a PEER after he was found walking in the middle of the road among traffic, talking to a dog that was not there, looking in people cars, yelling and swearing. Pt has a history of schizoaffective d/o and is con-compliant with his treatment at [facility]. Pt has prior inpatient psych admits and was discharged from [facility] on 07/05/16. While in the ED pt was agitated not cooperative. He was yelling and verbally abusive to staff, throwing his food , and spitting on the floor. Pt was medicated and has calmed down. Upon crisis eval, Pt stated "I refuse to answer any questions without my plant physiologist present Diagnosis of record: Schizoaffective disorder Several concussions Mental Status Update: Oriented, not interested in interview, but calm and cooperative. He spoke at length today, he was not pressured, good concentration , normal personal hygiene Thought process was coherent with occasional tangent, he denied thinking of self -destruction or violence No delusions, he offered reasons why is he mistrustful of care, and psych medications Plan: Has no intention of taking Zyprexa or any psych medications Offered options for TBI/DALE but would not hear of it To be re-evaluated by his regular treatment team tomorrow
--- NOTE | 2016-07-21 15:00 | NUR ---
Patient is A&O X3, non-compliant with medication and group therapies/ activities. Patient continues to demonstrates some delusiona thought and paranoia leading to his refusal to take medication. Mood and affect stable and inapproprate, report god night sleep and appetite, vital is stable and WNL, denies thought of self-harm and to someone else.
[2016-07-21 15:43] VITALS: BP 145/73
[2016-07-21 16:06] VITALS: BP 145/73
[2016-07-21 19:39] VITALS: BP 147/85
[2016-07-21 19:44] VITALS: BP 145/78
[2016-07-22] VITALS (8 sets, daily range): BP systolic 129–178; BP diastolic 65–84
--- NOTE | 2016-07-22 04:30 | NUR ---
WENT TO SLEEP APPROXIMATELY 0215 SLEPT WELL.
--- NOTE | 2016-07-22 04:39 | NUR ---
WENT TO ROOM TO SLEEP 0355 AND SLEPY THROUGHT NIGHT.
--- NOTE | 2016-07-22 13:25 | NUR ---
PT IS OUT IN THE COMMUNITY, SITTING IN CHAIR [employer]. PT IS NOT ATTENDING GROUPS. PT CAN BE OBSERVED TALKING TO SELF IN A LOUD, PRESSERED VOICE. PT MOOD IS STABLE WITH A CONSTRICTED AFECT. PT DENIES SI THOUGHTS.
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
--- NOTE | 2016-07-22 20:06 | NUR ---
PT HAS BEEN IRRITATED AND VOCAL ON THE UNIT. HE EXPRESSES FRUSTRATION AND CAN BE LOUD AND IRRATIONAL AT TIMES IN REGARD TO HOW HE PERCEIVES CERTAIN SITUATIONS. PT IS DEFENSIVE TOWARDS STAFF, SLIGHTLY HYPERVERBAL, PACES, AND CAN REFERENCE MANY UNRELATED THINGS IN DISORGANIZED COMMUNICATION WHEN TALKING TO PEERS AND STAFF. PT DENIES HAVING ANY THOUGHTS OF SI AT THIS TIME BUT HAS MADE PASSIVE REMARKS OF HI INVOLVING PEOPLE OUTISIDE THE UNIT AND HOW PEOPLE "SHOULD BE PUNISHED". HE IS REDIRECTABLE MOST OF THE TIME.
--- NOTE | 2016-07-22 20:08 | CP SOUTH PROGRESS NOTE PSYCH ---
Psych (Inpt) Progress Note Progress Note Include the following elements, when applicable: Involvement in the active treatment of the patient with behavioral observations of the patient and the patient's response to the treatment. Review of the ongoing treatment process in the context of the treatment plan. Indication of how multi-disciplinary staff members are carrying out the treatment plan. Plans for future interventions and recommendations for revision of the treatment plan. Liaison with other physicians/providers. Progress Note: PSYCHIATRIST NOTE, 07/22/2016: I discussed this patient's very slow progress to date, current mental status, treatment and discharge planning with staff team today in the daily morning ANTONETTE and Ariadna Cerna LCSW, and I also met with him together in individual session shortly after he met with his bowling alley operator for tomorrow's Probable Cause hearing, Atty. Gonzalez, who had also represented him at his last hearing earlier this month when he was released by . Bus Assistant of Probate, Gama Palomino, who we expect will also preside at tomorrow's hearing. Patient has refused to take any psychotropic medication since admission; he had received some in the E.D. FARM OPERATOR; despite his refusal to take meds patient has been able to maintain control over his own behavior though for the most part shunning the group program or interactions on the patient milieu or with staff; he has kept to himself. During our meeting with patient today in my office he was more verbal and engageable though still rejecting any medication or other therapy, contending that he should never have been brought into the E.D. in the first place ("I was crossing the street, no traffic was coming, and they have me arrested!") Patient's relationship with treaters at [facility] appears to be unsalvagable due largely to negative transference, particularly with regard to Ms. Rdz who is his main personal development mentor there; we will be looking into alternative outpatient treatment, possibly with [facility] [place] where he has been seen in the past, or [facility] in [place], [place]. Patient does not appear to be floridly delusional but is paranoid and perseverative though without any threats of violence against anyone; basically, he wants to be left alone as much as possible. For additional very detailed commentary on our meeting with patient today, see the progress note of this date by Ms. Cerna. She was given permission by patient to contact his probation and parole officer who supports ongoing outpatient treatment and said that if patient does not accept "some" outpatient referral and attend sessions with mental health providers he will be in violation of his probation and subject to turn to penitentiary for the remainder of his sentence; probation continues through to 01/2017.
--- NOTE | 2016-07-23 05:41 | NUR ---
PT PSYCHOTIC, REQUIRING REDIRECTION FOR LOUDNESS AND INTRUSIVENESS. PT CONTINUES TO REFUSE ALL MEDS. PT WAS UP SEVERAL TIMES IN THE NIGHT. PT CONVINCED HE WILL LEAVE AFTER PROBATE HEARING TODAY.
--- NOTE | 2016-07-23 10:57 | SOCIAL WORKER PROG NOTE PSYCH ---
Social Work Progress Note Progress Note Probable Cause Hearing held this morning 10am. In attendance was Ivone Mederos (remittance clerk), Dr. Grey, Client Account Specialist Carlos, Babita West LCSW, Jose Antonio, and this keno writer/runner. Dr. Grey presented that Jose Antonio is not presenting as gravely disabled, or a danger to himself or others. Discussed the fact that Jose Antonio would benefit from an alternate community provider other than [facility], because he is not comfortable with [facility] at this time. Offered to help connect him to a community provider like [facility] or [facility]. agreed that inpatient hospitalization is not needed at this time and that Jose Antonio should follow through with referral to a new community provider to meet the needs of probation. After the hearing, Jose Antonio agreed for a referral to [facility]. It took him several minutes to review the release, but he eventually signed it. He requested a copy of it. I called [facility] and spoke with Debra. Gave her some updated information and faxed clinical. She gave him an appt. for 08/05 at 1pm. Called [facility] and left a voicemail about outcome of hearing.
[2016-07-23] MEDS ORDERED: OLANZAPINE5 M2 PO (11:45)
--- NOTE | 2016-07-23 11:57 | NUR ---
will be discharged today [place] [facility] and follow up at [facility] in [place] as directed by probate court in ruling today. Mood is stable, full range of affect. denies thoughts of self harm when asked. given education on schizoaffective disorder.
--- NOTE | 2016-07-23 14:01 | CP SOUTH PROGRESS NOTE PSYCH ---
Psych (Inpt) Progress Note Progress Note Include the following elements, when applicable: Involvement in the active treatment of the patient with behavioral observations of the patient and the patient's response to the treatment. Review of the ongoing treatment process in the context of the treatment plan. Indication of how multi-disciplinary staff members are carrying out the treatment plan. Plans for future interventions and recommendations for revision of the treatment plan. Liaison with other physicians/providers. Progress Note: PSYCHIATRIST NOTE (PROBABLE CAUSE HEARING/DISCHARGE ON ORDER OF ): I discussed this patient's progress to date, current mental status, treatment and discharge plans with staff team today in the daily morning ITTM and also met with him during (as well as after) today's Probable Cause hearing before [facility]. [employer] rei Kapoor, Gama Palomino Jr. Patient was released by [employer] 's order at the conclusion of this hearing, as Judge Palomino did not find him to be at this time a danger to himself or others or gravely disabled; staff of [facility] had expressed our concern as more for his thriving in the community, having adequate housing and access to outpatient treatment rather than primarily any belief that he represents a current danger to himself or others. Atty. Gonzalez was, as he had tried to be at the first recent hearing, helpful in explaining options to patient and working with him with regard to his living situation, f/u treatment, etc. Patient conducted himself well during the hearing, did not become floridly irrational, loud, vulgar or threatening, but conducted himself for the most part calmly and without emotional/behavioral outbursts; he was respectful of the [employer], as well as the proceedings for the most part. After the hearing he did discuss aftercare and accepted treatment with [facility], [place], [place]. He showed no evidence of suicidal or homicidal ideation, plans, intent or impulses and, in fact, demonstrated none throughout his current stay on [facility]. He made no threats against any official or resident of the [facility]; his only hope was that the others would "leave [him] alone" or else he would have to find alternative lodgings or, because his funds are limited, "[place] tent [place] the [place]" which he has done at times in the past. Patient continues to refuse to take any psychotropic medications and refused prescription of same upon discharge. Patient accepted a referral for intake at [facility] scheduled for 08/05/2016 at 1pm; he will be meeting with his staff air tactical officer , Mr. Ridley, in the near future (usually sees the latter an average of twice a month).
--- NOTE | 2016-08-01 10:36 | DISCHARGE SUMMARY REPORT-PSYCH ---
Visit Information Visit Dates/Diagnosis' Admission Date: 07/18/16 Discharge Date: 08/23/16 Reason for Admission: "I'm not talking to anyone without my washcoat wiper." Psy Discharge Primary Diag: Schizoaffective Disorder, Mixed; MRE Mixed Hospital Course Significant Lab Findings: carbon dioxide = 21; total protein = 6.1; LDL = 63; GIOVANNA = 36.0; urine for drugs of abuse--negative (for listing of all normal range laboratory data from this admission, see electronic medical record) Course Complications: none Consultations: patient was seen for an admission medical H&P by Prakash Campos M.D. and followed medically during this admission by the hospitalist staff/[facility] medical attending physicians Allergies: Coded Allergies: bupropion (From WELLBUTRIN) (VOMITING, ILL 07/02/16) divalproex sodium (From DEPAKOTE) (VOMITING, ILL 07/02/16) haloperidol (From HALDOL) (VOMITING, ILL 07/02/16) lithium (VOMITING, ILL 07/02/16) lorazepam (From ATIVAN) (VOMITING, ILL 07/02/16) olanzapine (From ZYPREXA) (VOMITING, ILL 07/02/16) spinach (N/V 07/02/16) squash (N/V 07/02/16) sweet potato (N/V 07/02/16) Uncoded Allergies: AVACADO (N/V 07/02/16) ZUCCHINI (N/V 07/02/16) Hospital Course/TX Response: (see also, all initial/admission assessments and daily M.D./RESTAURANT FRONT MANAGER and BUSINESS DEVELOPMENT RECRUITER progress notes for this admission in the electronic medical record) We were presented with a situation similar to that we faced with regard to this patient less than 2 weeks earlier. Patient is markedly guarded, refusing to provide even basic information, likely highly paranoid but saying very little. Thus far he has been generally under behavioral control but can be confrontative and appears threatening at times. He is refusing any medication and we will continue to discuss this and offer medication to patient; however, he will not be given any against his will unless he presents as significant risk to himself or others in the immediate environment. We will continue efforts to engage patient on any level; I have asked him if there is anything we can do to make his confinement here more comfortable. Patient would appear to have a chronic, severe paranoid psychotic disorder, possibly an affective psychosis with prominent paranoid features. plans with staff team today in the daily morning ITTM and also met with him during (as well as after) today's Probable Cause hearing before [facility]. Turning Machine Operator of [facility], Gama Palomino Jr. Patient was released by Turning Machine Operator's order at the conclusion of this hearing, as Turning Machine Operator Candelario did not find him to be at this time a danger to himself or others or gravely disabled; staff of [facility] had expressed our concern as more for his thriving in the community, having adequate housing and access to outpatient treatment rather than primarily any belief that he represents a current danger to himself or others. Attprakash Gonzalez was, as he had tried to be at the first recent hearing, helpful in explaining options to patient and working with him with regard to his living situation, f/u treatment, etc. Patient conducted himself well during the hearing, did not become floridly irrational, loud, vulgar or threatening, but conducted himself for the most part calmly and without emotional/behavioral outbursts; he was respectful of the Turning Machine Operator, as well as the proceedings for the most part. After the hearing he did discuss aftercare and accepted treatment with [facility], [place], [place]. He showed no evidence of suicidal or homicidal ideation, plans, intent or impulses and, in fact, demonstrated none throughout his current stay on [facility]. He made no threats against any official or resident of the [facility]; his only hope was that the others would "leave [him] alone" or else he would have to find alternative lodgings or, because his funds are limited, "[place] a tent [place]" which he has done at times in the past. Patient continues to refuse to take any psychotropic medications and refused prescription of same upon discharge. Patient accepted a referral for intake at [facility] scheduled for 08/05/2016 at 1pm; he will be meeting with his seaman officer, Laurelskyler, in the near future (usually sees the latter an average of twice a month). Discharge HBIPS - Tobacco Use Treatment Offered Post DC Medications Offered: Refused Tob Medication Tx Post DC Tobacco Treatment Plan: Refused Tobacco Tx Pgm - EtOH/Drug Use D/O Treatment Offered Post DC Medications Offered: NA-No EtOH/Drug Use D/O Post DC EtOH/SubAbuse TX Plan: NA-No EtOH/Drug Use D/O Metabolic Screening - Screen if on a Neuroleptic Medication - Metabolic screening should include: - Blood Pressure, BMI, Glucose or Hgb A1c, & a - Lipid profile from within the past 365 days. Metabolic Screening ([x]) Not Applicable, patient not on a neuroleptic. OR () Patient on a neuroleptic(s) . Enter below results for Glucose or Hemoglobin A1C, and lipid panel if obtained during the last 365 days. BMI: 24.600 Blood Pressure: 178/84 Laboratory Results (If applicable): Discharge Instructions General Discharge Information Discharge Medications: Discharge Medications (dose, route, frequency, indications): Patient refused all medications during this admission (and at the time of discharge from hospital on the order of Turning Machine Operator of Hon. Gama Kapoor Jr.) Multiple Neuroleptics: ([x]) Not Applicable OR Document below three failed attempts at monotherapy, or a plan to taper to monotherapy, or augmentation of Clozapine. () Patient's Diet: heart healthy Patient's Activity: without restrictions DC Disposition: to home (currently still the [facility]) Recommendations: I would strongly recommend continued efforts to engage this patient in discussion and treatment. Referred To: Patient refused to continue appointments with [facility] in [facility], but did accept an intake at [facility] in [place], for 08/05/2016 at 1pm. He will also continue to meet with his seaman officer, Mr. Ridley, twice a month. Copies To: KIANNA PARRY,MAIRA Llamas
== END 2016-07-23 12:06 | DRG 885 ==
LOC: ERH 19:21 → ERHI 07-18 08:57 → CP SOUTH 07-18 08:57 → ENTRNSPT 07-18 10:25 → EDTRNSPT 07-18 10:33 → EDTRNSPTTYP 07-18 10:33 → EDTRNSPTSTS 07-18 10:33 → CP SOUTH 07-18 10:47 → CMPTRNSPT 07-18 10:49 → CP SOUTH 07-18 14:36
PROVIDERS: Emergency Medicine; ADMIT Psychiatry & Neurology Psychiatry
DX: F25.0 Schizoaffective disorder, bipolar type (principal)
CPT/HCPCS: 80307; G0480; J1200; J3230; J3490

== ENCOUNTER 2016-08-09 00:23 | Emergency (ER) | payer OTHER, MEDICARE ==
[~2016-08-09] VITALS: Ht 172.7 cm; Wt 79.4 kg
[~2016-08-09 00:23] MED LIST changes: +OLANZAPINE5 M2 PO
[2016-08-09 00:44] VITALS: BP 153/92
--- NOTE | 2016-08-09 01:26 | ED PSYCHIATRIC COMPLAINT ---
History of Present Illness General Chief Complaint: Psychiatric Related Complaint Stated Complaint: BIBA FOR +HI Source: patient, old records, police Exam Limitations: no limitations Vital Signs & Intake/Output Vital Signs & Intake/Output Vital Signs Date Time Temp Pulse Resp B/P B/P Pulse O2 O2 Flow FiO2 Mean Ox Delivery Rate 08/09 0044 96.8 101 22 153/92 100 Room Air Allergies Coded Allergies: bupropion (From WELLBUTRIN) (VOMITING, ILL 07/02/16) divalproex sodium (From DEPAKOTE) (VOMITING, ILL 07/02/16) haloperidol (From HALDOL) (VOMITING, ILL 07/02/16) lithium (VOMITING, ILL 07/02/16) lorazepam (From ATIVAN) (VOMITING, ILL 07/02/16) olanzapine (From ZYPREXA) (VOMITING, ILL 07/02/16) spinach (N/V 07/02/16) squash (N/V 07/02/16) sweet potato (N/V 07/02/16) Uncoded Allergies: AVACADO (N/V 07/02/16) ZUCCHINI (N/V 07/02/16) Reconcile Medications Olanzapine 5 MG TABLET 5 MG PO 0800,2200 clarify thinking/stable moods Triage Note: PT BIBA WITH POLICE PAPERS. PER EMS, PT WAS IN POLICE CUSTODY WHEN HE BEGAN YELLING AND DEMONSTRATING ERRATIC BEHAVIORS. EMS STATES PT WAS UNCOOPERATIVE WITH PD HE MADE HOMICIDAL STATEMENTS TO THE OFFICERS. PER EMS, PT ALSO DEMONSTRATED INAPPROPRIATE SEXUAL BEHAVIORS SUCH CONSTANT MASTURBATION. PT ARRIVES TO ED ALERT AND ORIENTED WITH A DISHEVELED APPEARANCE. SECURITY AT BEDSIDE FOR WANDING. PT CHANGED INTO BLUE SCRUBS. PT YELLING HE DEMANDS WATER. Triage Nurses Notes Reviewed? yes Onset: Just prior to arrival Duration: hour(s):, better, constant Timing: recent history Severity: moderate, severe Associated Symptoms: anxiety, impaired concentration HPI: Patient was in police lockup and reportedly threw his tray of food and the floor crawled underneath the bed masturbated frequently and threatened to kill officers. He denies fever chills nausea vomiting diarrhea abdominal pain chest pain shortness of breath headache dysuria rash bleeding suicidal ideation hallucination and no homicidal ideation Past History Travel History Traveled to [place] past 21 day No Medical History Any Pertinent Medical History? see below for history Neurological: NONE EENT: NONE Cardiovascular: NONE Respiratory: NONE Gastrointestinal: NONE Hepatic: NONE Renal: NONE Musculoskeletal: NONE Psychiatric: schizo affective disorder (R/O bipolar spectrum disorder), substance abuse (evidence of recent cocaine use) Endocrine: NONE Blood Disorders: NONE Cancer(s): NONE KILN FIRER/Reproductive: NONE Other Medical Hx: no abnormalities found on H&P earlier this month; to date has refused to cooperate with physical exam during current admission History of MRSA: No History of VRE: No History of CDIFF: No Surgical History Surgical History: non-contributory Psychosocial History Who do you live with Other (see notes) Services at Home None What is your primary language Citizen [place] Tobacco Use: Refused to answer Family History Family History, If Any: FATHER FH: CAD (coronary artery disease) Hx Contributory? No Review of Systems Review of Systems Constitutional: Reports: no symptoms. EENTM: Reports: no symptoms. Respiratory: Reports: no symptoms. Cardiovascular: Reports: no symptoms. GI: Reports: no symptoms. Genitourinary: Reports: no symptoms. Musculoskeletal: Reports: no symptoms. Skin: Reports: no symptoms. Neurological/Psychological: Reports: no symptoms. Hematologic/Endocrine: Reports: no symptoms. Immunologic/Allergic: Reports: no symptoms. All Other Systems: Reviewed and Negative Physical Exam Physical Exam General Appearance: well developed/nourished, alert, awake, anxious, mild distress Head: atraumatic, normal appearance Eyes: Bilateral: PERRL, EOMI. Ears, Nose, Throat: normal pharynx, normal ENT inspection, hearing grossly normal Neck: normal inspection, supple Respiratory: normal breath sounds Cardiovascular: regular rate/rhythm Gastrointestinal: soft, non-tender Extremities: normal range of motion Neurological/Psychiatric: no motor/sensory deficits, awake, alert, anxious, prison officer II-XII nml as tested, oriented x 3 Appearance/Memory/Insight: disheveled, impaired insight Behavoir/Eye Contact/Speech: cooperative, normal speech Thoughts/Hallucinations: no apparent hallucination Skin: intact, normal color, warm/dry SAD PERSONS Done? patient not suicidal Progress Differential Diagnosis: drug intoxication, drug overdose, drug withdrawal, electrolyte abnormality, hypoglycemia Plan of Care: Observation Departure Departure Time of Disposition: 123 Disposition: HOME OR SELF CARE Condition: Stable Clinical Impression Primary Impression: Schizoaffective disorder Qualifiers: Schizoaffective disorder type: unspecified Qualified Code: F25.9 - Schizoaffective disorder, unspecified Referrals: PATIENT HAS NO PRIMARY CARE DR (PCP/Family) Departure Forms: General Discharge Information
== END 2016-08-09 01:33 ==
LOC: ERH 00:23
DX: F25.9 Schizoaffective disorder, unspecified (principal)

== ENCOUNTER 2016-08-11 10:23 | Inpatient (IN) | payer OTHER ==
[~2016-08-11] VITALS: Ht 167.6 cm; Wt 76.9 kg
--- NOTE | 2016-08-11 10:28 | ED PSYCHIATRIC COMPLAINT ---
See Addendum History of Present Illness General Chief Complaint: General Adult Stated Complaint: BIBA FOR ACTING ERRATIC Source: patient, old records, EMS, police Exam Limitations: poor historian Vital Signs & Intake/Output Vital Signs & Intake/Output Vital Signs Date Time Temp Pulse Resp B/P B/P Pulse O2 O2 Flow FiO2 Mean Ox Delivery Rate 08/12 0743 97.4 95 20 146/77 96 Room Air 08/11 2111 97.0 88 20 136/82 98 Room Air 08/11 1407 97.1 82 18 122/70 95 Room Air 08/11 1258 96 20 126/61 96 Room Air 08/11 1215 98.2 95 22 143/93 99 Room Air 08/11 1146 95 Room Air 08/11 1027 97.2 111 22 145/80 97 Room Air ED Intake and Output 08/12 0000 08/11 1200 Intake Total 130 Output Total Balance 130 Intake, Oral 130 Patient 170 lb Weight Allergies Coded Allergies: bupropion (From WELLBUTRIN) (VOMITING, ILL 07/02/16) divalproex sodium (From DEPAKOTE) (VOMITING, ILL 07/02/16) haloperidol (From HALDOL) (VOMITING, ILL 07/02/16) lithium (VOMITING, ILL 07/02/16) lorazepam (From ATIVAN) (VOMITING, ILL 07/02/16) olanzapine (From ZYPREXA) (VOMITING, ILL 07/02/16) spinach (N/V 07/02/16) squash (N/V 07/02/16) sweet potato (N/V 07/02/16) Uncoded Allergies: AVACADO (N/V 07/02/16) ZUCCHINI (N/V 07/02/16) Reconcile Medications Olanzapine 5 MG TABLET 5 MG PO 0800,2200 clarify thinking/stable moods Triage Nurses Notes Reviewed? yes HPI: Patient brought in on a police paper for erratic behavior. Patient was walking into traffic. Patient has been noncompliant with his medications. Patient had a recent admission to Inpatient Psychiatry and he refused all medications during admission. Appropriate judgment came in and evaluated him and determined that he was competent. Patient was subsequently discharged. The police were called 3 separate occasions this morning. With a prominent brought him in for evaluation. Patient is agitated but redirectable. Patient is confused. Patient is responding to internal stimuli and is arguing with himself. Patient denies hallucinations. (ANABELA REEDER MD) Past History Travel History Traveled to [place] past 21 day No Medical History Any Pertinent Medical History? 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 No (ANABELA REEDER MD) Review of Systems Review of Systems Constitutional: Reports: no symptoms. EENTM: Reports: no symptoms. Respiratory: Reports: no symptoms. Cardiovascular: Reports: no symptoms. GI: Reports: no symptoms. Genitourinary: Reports: no symptoms. Musculoskeletal: Reports: no symptoms. Skin: Reports: no symptoms. Neurological/Psychological: Reports: no symptoms. Hematologic/Endocrine: Reports: no symptoms. Immunologic/Allergic: Reports: no symptoms. All Other Systems: Reviewed and Negative (ANABELA REEDER MD) Physical Exam Physical Exam General Appearance: well developed/nourished, mild distress Head: atraumatic Eyes: Bilateral: PERRL, EOMI. Ears, Nose, Throat: normal pharynx, normal ENT inspection, hearing grossly normal Neck: normal inspection, supple Respiratory: normal breath sounds Cardiovascular: regular rate/rhythm Gastrointestinal: soft, non-tender Extremities: normal range of motion Neurological/Psychiatric: no motor/sensory deficits, awake, agitated, anxious Appearance/Memory/Insight: denies illness, impaired insight Behavoir/Eye Contact/Speech: increased rate of speech Thoughts/Hallucinations: ARGUING WITH HIMSELF AND RESPONDING TO INTERNAL STIMULAE Skin: intact, normal color, warm/dry SAD PERSONS Done? CRISIS CONSULT OBTAined (LILLI PARRY,ANABELA Peña) Progress Differential Diagnosis: drug intoxication, drug overdose, drug withdrawal, electrolyte abnormality Plan of Care: Orders Procedure Date/time Status Admit to inpatient psych 08/12 1001 Active Continuous Observation Monitor 08/12 0730 Active Regular Diet 08/11 D Active Continuous Observation Monitor 08/11 1930 Active Continuous Observation Monitor 08/11 1529 Active URINE DRUGS OF ABUSE 08/11 1028 Complete ETHANOL 08/11 1028 Complete COMPREHENSIVE METABOLIC PANEL 08/11 1028 Complete CBC WITHOUT DIFFERENTIAL 08/11 1028 Complete ED CRISIS PSYCH CONSULT 08/11 1028 Active Current Medications Sig/Mita Start time Last Medication Dose Stop Time Status Admin Chlorpromazine 100 MG ONCE ONE 08/11 2129 CAN (Thorazine 50MG/2ML 08/11 2130 Inj) Laboratory Tests 08/11/16 1043: Urine Opiates Screen < 100.00, Methadone Screen < 40, Barbiturate Screen < 60, Ur Phencyclidine Scrn < 6.00, Amphetamines Screen 146, U Benzodiazepines Scrn < 85, Urine Cocaine Screen < 50, Urine Cannabis Screen 20.90 08/11/16 1030: Anion Gap 10, Estimated GFR > 60, BUN/Creatinine Ratio 10.0, Glucose 164 H, Calcium 9.1, Total Bilirubin 0.7, AST 46, ALT 53, Alkaline Phosphatase 54, Total Protein 6.5, Albumin 4.0, Globulin 2.5, Albumin/Globulin Ratio 1.6, CBC w Diff NO MAN DIFF REQ, RBC 5.31, MCV 87.2, MCH 29.3, RDW 14.0, MPV 7.9, Gran % 65.7, Lymphocytes % 26.4, Monocytes % 5.4, Eosinophils % 1.9, Basophils % 0.6, Absolute Granulocytes 5.5, Absolute Lymphocytes 2.2, Absolute Monocytes 0.5, Absolute Eosinophils 0.2, Absolute Basophils 0, PUBS MCHC 33.5, Serum Alcohol < 10.0 08/12/2016 7:46:54 AM Patient's signed out to me by Dr. Thomas. Pending crisis evaluation and disposition. (LANDY PARRY,BARAK) Hand-Off Endorsed To: FARAZ PARRY,SEUN Butler Endorsed Time: 1899 Pending: consult (BED SEARCH) Comments: Patient was seen and evaluated by the resident's clinician. PEC has been signed. (ANABELA REEDER MD) Hand-Off Endorsed To: BARAK BILL MD Endorsed Time: 0700 Pending: consult (FARAZ PARRY,SEUN Butler) Departure Departure Disposition: STILL A PATIENT Condition: Stable Clinical Impression Primary Impression: Schizoaffective disorder Referrals: PATIENT HAS NO PRIMARY CARE DR (PCP/Family) Departure Forms: Customer Survey General Discharge Information (ANABELA REEDER MD) Departure Time of Disposition: 1001 Psych Admission Note Psychiatric Admission: I have seen and evaluated RICHEYKRUNAL Quiana HAAS. I have also reviewed all the pertinent lab results and diagnostic results. KRUNAL RICHEY JR will be admitted to our inpatient Psychiatric unit for treatment and care. (BARAK BILL MD)
--- NOTE | 2016-08-11 10:30 | NUR ---
PT TO ER BY EMS AFTER THEY WERE CALLED DUE TO PT ACTING ERATIC WALKING IN AND OUT OF TRAFFIC, WHEN QUESTIONED PT STATES THAT HE FEELS LIKE HE IS DEHYDRATED, THEN STATED TO THIS NURSE HE CAN'T BREATHE. MD AT BEDSIDE AND RESP CALLED FOR TREATMENT , PT DENIES SI OR HI TO THIS NURSE , BUT NOTED TO BE PACING AROUND STRETCHER STATING THAT HE NEEDS TO LEAVE , PT AWARE THAT HE NEEDS TO BE EVALUATED BY CRISIS, IS NOT HAPPY WITH THIS BUT , THIS NURSE ABLE TO RE DIRECT HIM TO STRETCHER. DENIES ETOH OR DRUG USE
--- NOTE | 2016-08-11 10:34 | NUR ---
BLDS DRAWN AND SENT
[2016-08-11 10:48] LABS: ABSOLUTE BASOPHIL COUNT 0 /CUMM (0.0-0.2); ABSOLUTE EOSINOPHIL COUNT 0.2 /CUMM (0.0-0.7); ABSOLUTE GRANULOCYTE CT 5.5 /CUMM (1.4-6.5); ABSOLUTE LYMPH COUNT 2.2 /CUMM (1.2-3.4); ABSOLUTE MONOCYTE COUNT 0.5 /CUMM (0.10-0.60); BASOPHIL % 0.6 % (0.0-2.0); EOSINOPHIL % 1.9 % (0-5); GRANULOCYTE % 65.7 % (42.2-75.2); HEMATOCRIT 46.4 % (42-52); MEAN CORPUSCULAR HGB 29.3 PG (27.0-31.0); MEAN CORPUSCULAR HGB CONC 33.5 G/DL (33.0-37.0); MEAN CORPUSCULAR VOLUME 87.2 FL (80.0-94.0); MEAN PLATELET VOLUME 7.9 FL (7.4-10.4); PLATELET COUNT 228 /CUMM (130-400); RED BLOOD CELL CT 5.31 /CUMM (4.70-6.10); WHITE BLOOD CELL COUNT 8.4 /CUMM (4.8-10.8)
--- NOTE | 2016-08-11 12:06 | NUR ---
UNABLE TO VERIFY HOME MEDS DUE TO CURRENT CIRCUMSTANCES
--- NOTE | 2016-08-11 12:11 | NUR ---
PT BEING VERBALLY ABUSIVE TO STAFF AND OTHERS IN HALLWAY, SWEARING AND BEING LOUD. PT MOVED INTO ROOM 3, SECURITY AT BEDSIDE
--- NOTE | 2016-08-11 12:16 | NUR ---
PT ACTING OUT IN HELM GERMANIA, PER PT MOVED TO ROOM AND MEDICATED WITH BENADRYL IM PER ORDER
--- NOTE | 2016-08-11 12:42 | NUR ---
NICOTINE PATCH 21 MG PLACED ON R SIDE BACK, PT MEDICATED WITH THORA ZINE PER ORDER.
--- NOTE | 2016-08-11 13:05 | NUR ---
PT UP TO BATHROOM, LOCKED SELF IN BATHROOM, SECURITY CALLED, PT SCREAMING WHILE IN BATHROOM, YELLING THAT HE DOES NOT NEED TO BE HERER, THAT HE HAS TO MOVE HIS BOWELS, AND ALSO STATES THAT HE NEEDS BLINDS ON THE WINDOW. PT CAME OUT OF BATHROOM AND COMPLAINED OF FEELING DIZZY, PT ASSISTED ONTO STRETCHER. FOOD TRAYS PROVIDED
--- NOTE | 2016-08-11 14:08 | NUR ---
PT NOTED TO BE SLEEPING REGULAR RESP RATE NOTED , O2 SAT 95 % ON RA
--- NOTE | 2016-08-11 14:59 | NUR ---
PT AWAKE AND AMBULATED TO BATHROOM, CAME OUT OF BATHROOM IN JUST HIS UNDERWEAR, NEW SCRUBS PROVIDED . PT ASKING FOR HIS DISCHARGEPAPERS. PT AWARE THAT HE HAS TO STAY TO SPEAK WITH CRISIS
--- NOTE | 2016-08-11 15:18 | NUR ---
PT AGAIN PACING AND WANTING TO LEAVE. REMINDED THAT HE STILL NEEDS EVAL BY CRISIS AND REDIRECTED BACK TO STRETCHER. WATER PROVIDED
--- NOTE | 2016-08-11 15:24 | NUR ---
RICARDO STAMP CLERK TO BEDSIDE FOR EVALUATION
--- NOTE | 2016-08-11 15:37 | ED PSYCH CRISIS CONSULTATION ---
See Addendum Crisis Consult Basic Assessment Date of Consult: 08/11/16 Responsible Person/Accompanied By: Aparna LEÓN Insurance Authorization: Insurance #1: Insurance name: MEDICARE A Phone number: Policy number: [id number] Group number: Authorization number: ED Provider: Patient's ED Provider: LILLI PARRY,ANABELA Peña Primary Care Physician: Patient's PCP: PATIENT HAS NO PRIMARY CARE DR PCP's Phone Number: Current Psychiatrist: None reported Chief Complaint: Psychiatric Related Complaint Patient's Quote: " I need to go home." Present Illness: Patient is a 46 year old Single male brought to the ED on [facility] for erratic behavior. Patient was recently at [facility] in July 2016 and refused all medication during admission. He was discharged after having a probable cause hearing where he was not deemed gravely disabled. He has been non compliant with outpatient treatment in the community since discharge from the hospital. Patient resides at the [facility]. Patient is agitated but redirectable. Patient is confused. Patient is responding to internal stimuli and is arguing with himself. Patient locked himself in the bathroom in ED and was heard to be having an argument with himself. Patient pacing back and forth during evaluation, unable to sit still and unable to process his thoughts clearly. Case reviewed with Dr. Monica Person of psychiatry and patient to be placed on PEC and bed search to be conducted. Patient's Address: [address] [place] [address] Other Phone Number: Who Do You Live With? Other (see notes) Family/Informants Interviewed: no family/collateral ID'd Allergies - Coded Allergies: bupropion (From WELLBUTRIN) (VOMITING, ILL 07/02/16) divalproex sodium (From DEPAKOTE) (VOMITING, ILL 07/02/16) haloperidol (From HALDOL) (VOMITING, ILL 07/02/16) lithium (VOMITING, ILL 07/02/16) lorazepam (From ATIVAN) (VOMITING, ILL 07/02/16) olanzapine (From ZYPREXA) (VOMITING, ILL 07/02/16) spinach (N/V 07/02/16) squash (N/V 07/02/16) sweet potato (N/V 07/02/16) Uncoded Allergies: AVACADO (N/V 07/02/16) ZUCCHINI (N/V 07/02/16) Current Medications - Scheduled Medications Olanzapine 5 MG TABLET 5 MG PO 0800,2200 clarify thinking/stable moods #1 TAB Prescribed by MAIRA HUTCHISON MD on 07/23/16 Laboratory Results: Laboratory Tests 08/11/16 1043: Urine Opiates Screen < 100.00, Methadone Screen < 40, Barbiturate Screen < 60, Ur Phencyclidine Scrn < 6.00, Amphetamines Screen 146, U Benzodiazepines Scrn < 85, Urine Cocaine Screen < 50, Urine Cannabis Screen 20.90 08/11/16 1030: Anion Gap 10, Estimated GFR > 60, BUN/Creatinine Ratio 10.0, Glucose 164 H, Calcium 9.1, Total Bilirubin 0.7, AST 46, ALT 53, Alkaline Phosphatase 54, Total Protein 6.5, Albumin 4.0, Globulin 2.5, Albumin/Globulin Ratio 1.6, CBC w Diff NO MAN DIFF REQ, RBC 5.31, MCV 87.2, MCH 29.3, RDW 14.0, MPV 7.9, Gran % 65.7, Lymphocytes % 26.4, Monocytes % 5.4, Eosinophils % 1.9, Basophils % 0.6, Absolute Granulocytes 5.5, Absolute Lymphocytes 2.2, Absolute Monocytes 0.5, Absolute Eosinophils 0.2, Absolute Basophils 0, PUBS MCHC 33.5, Serum Alcohol < 10.0 Past History Past Medical History Neurological: NONE EENT: NONE Cardiovascular: NONE Respiratory: NONE Gastrointestinal: NONE Hepatic: NONE Renal: NONE Musculoskeletal: NONE Psychiatric: schizo affective disorder (R/O bipolar spectrum disorder), substance abuse (evidence of recent cocaine use) Endocrine: NONE Blood Disorders: NONE Cancer(s): NONE 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 Reason for Treatment Psychosis/delusional behavior Response to Treatment Poor, does not take medication. Diagnosis by History: Schizoaffective Substance Use/Abuse History Drug Use/Abuse Substances Used/Abused Yes Substance Used/Abused Alcohol First Use unknown Last Used unknown How much used/taken unknown How often unknown For how long unknown Route of use oral Substance Abuse Treatment Substance Abuse Treatment Past Substance Abuse [place] No Inpatient Treatment No Outpatient Treatment No Current Mental Status Mental Status Orientation: Person, Place, Situation Affect: Anxious, Manic Speech: Hyper-verbal, Mumbled, Pressured, Slurred Neuro-vegetative: Concentration Poor, Hyperactivity, Sleep Disturbance Appearance Appearance- Dress/Hygiene: In hospital issued scrubs, unable to sit still, pacing back and forth. Behaviors Thought Process: Disorganized, Flight of Ideas, Irrational, Loose Association, Tangential, Thought Blocking Thought Content: Auditory Hallucinations, Delusions, Paranoid, Thought Blocking Memory: Impaired Insight: Poor SI/HI Risk Assessment Past Suicidal Ideation/Attempts No Current Suicidal Ideation/Att No Past Homicidal Ideation/Att: No Current Homicidal Ideation/Attempts No Degree of Intent: None Danger To: Self Gravely Disabled: Lack of Insight, Poor Impulse Control, Poor Judgment Risk Factors: SA/MH hospitalized, isolate/no social support, poor impulse control, male, limited support Lethality Ratin PTSD Checklist PTSD Done? patient declined ED Management Sitter: Yes Restraints: No DSM5/PS Stressors/Medical Prob Diagnosis' (DSM 5, Stressors, Medical): Schizoaffective d/o, Bipolar type F25.0 Current GAF: 15 Departure Disposition Psych Medical Clearance Date: 08/11/16 Medically Cleared at: 1430 Time Started: 1430 Time Ended: 1510 Psychiatrist Consulted: Dr. Monica Person Date Disposition Established: 08/11/16 Time Disposition Established: 1550 Plan for Disposition - Modality: Inpatient Psychiatry Facility: Bed Search Rationale for Disposition: Psychotic, delusional, responding to internal stimuli, non compliant with meds/ outpatient treatment. Type of IP Admission: PEC Referrals PATIENT HAS NO PRIMARY CARE DR (PCP/Family)
--- NOTE | 2016-08-11 16:01 | NUR ---
PT REDIRECTED BACK TO STRETCHER, GIVEN FOOD TRAY. SITTER PRESENT FOR SAFETY AND MONITORING. PT REMAINS AN ELOPEMENT RISK AND DEMONSTRATES DELUSIONAL PSYCHOTIC COGNITION. REORIENTED TO REALITY.
--- NOTE | 2016-08-11 17:10 | NUR ---
SLEEPING AT THIS TIME, UNLABORED RESPIRATIONS NOTED. SITTER REMAINS PRESENT FOR CONTINUOUS OBS AND SAFETY
--- NOTE | 2016-08-11 21:10 | NUR ---
PT ASKING IF HE CAN BE DISCHARGED, REDIRECTED PT.
--- NOTE | 2016-08-12 02:28 | NUR ---
PT SLEEPING. SITTER REMAINS IN ATTENDANCE
--- NOTE | 2016-08-12 04:45 | NUR ---
PATIENT AWAKE, YELLING IN ROOM. THIS RN AND SECURITY TO BEDSIDE TO VERBALLY DEESCALATE PATIENT. PATIENT NOTED W/ SCATTERED THOUGHTS; REPORTING "I'M HAVING CHEST PAIN! I'M HAVING A HEART ATTACK!" WHEN QUESTIONED REGARDING CP, PATIENT STATES "I WANT TO TAKE A SHOWER!" WHEN ATTEMPTING TO REDIRECT PATIENT REGARDING HIS CP, PATIENT NOW DENIES ANY CP, STATES "MY NOSE IS ALL STUFFED UP!" PATIENT ALSO REPORTING "I DON'T WANT ANY SHOTS! I JUST WANT TO BE LEFT ALONE!" PATIENT VERBALLY DEESCALATED AT THIS TIME THOUGH REMAINS EASILY IRRITABLE. SITTERS REMAIN W/ PATIENT. LIGHTS DIMMED TO DECREASE STIMULI. SECURITY REMAINS IN CLOSE PROXIMITY.
--- NOTE | 2016-08-12 05:28 | NUR ---
PT MEDICATED WITH 50 MG BENADRYL PO AND 100 MG THORAZINE PO ORDERED. PT CALM AND QUIET IN HIS ROOM AT THIS TIME.
--- NOTE | 2016-08-12 06:10 | NUR ---
PT YELLING IN DOORWAY OF ROOM, COMPAINING ABOUT STRAW IN HIS WATER PITCHER, REQUESTED A DIFFERENT PITCHER WITH NO STRAW. REDIRECTED BACK INTO ROOM WITH HIS PITCHER OF WATER. PT THEN LAY ON BED WITH BLANKET UP OVER HEAD. LIGHTS ON FOR VISUALIZATION OF PATIENT. PT C/O ABOUT LIGHTS BEING ON. ADVISED HE NEEDED TO REMOVE THE BLANKET FROM HIS HEAD BEFORE THE LIGHTS COULFD BE DIMMED AGAIN. LIGHTS REMAIN ON, REGULAR RESPIRATIONS NOTED. SITTER IN ATTENDANCE
--- NOTE | 2016-08-12 09:06 | NUR ---
PT UP AND AWAKE, SITTER WITH PT.
--- NOTE | 2016-08-12 10:13 | NUR ---
RT PAGED FOR NEB TX
--- NOTE | 2016-08-12 10:26 | NUR ---
RESP AT BEDSIDE.
--- NOTE | 2016-08-12 10:42 | NUR ---
PT WASHING HIMSELF UP.
--- NOTE | 2016-08-12 11:59 | NUR ---
PT UP OUT OF ROOM, STARTING TO RAISE VOICE. PT MEDICATED WITH THORAZINE (SEE MAR)
--- NOTE | 2016-08-12 13:05 | NUR ---
REPORT TO ED GIVEN.
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
--- NOTE | 2016-08-12 13:55 | ED PSYCHIATRIST/APRN CONSULT ---
Psychiatrist/RESEARCH BIOLOGIST ED Consult Assessment and Plan: The patient was seen for assessment for the need to be stabilized on the inpatient unit. Crisis clinicians assessment was reviewed then the patient was interviewed. He is a medium height and weight male, who is going in and out of his room, has difficulty participating in the interview. He his disheveled, superficially cooperative, clothed in hospital issued paper scraps. The patient's speech is well articulated, evasive, at times loud with an irritated tone. His mood is upset, affect is variable, sometimes inappropriate to situation and content. He is guarded, paranoid. He states: "I just need to go home. I don't know why I am here. They pick me up and I was going to my home up the hill and I will not say anything more." Patient has been inpatient on our inpatient psychiatric unit in May. We reviewed the hospital course, he refused to take any medication and was discharged after court hearing. Patient currently lives at the [facility], he is unemployed, does not have support in the community. He has been in treatment at [facility] but not consistent with taking medication or appearing for the follow up appointments. Is currently very disorganized, labile, aggressive at time, difficult to redirect. He denies suicidal/homicidal ideation, auditory/visual hallucinations (even though he was observed in the bathroom talking to himself. He does appear to respond to internal stimuli. Patient has poor insight and judgment, does not believe he needs treatment or any sort of help. Because of his impulsivity, aggressive/agitated type behavior, lack of social support, paranoid delusions, financial difficulties, it is our clinical impression that the patient is gravely disabled and he needs to be stabilized on the inpatient psychiatric unit. The patient will be admitted to our inpatient psychiatric unit once bed becomes available. Impression Schizoaffective disorder, currently psychotic Stressors include housing difficulties, problems with primary support group, financial difficulties. Medical issues: The patient is coughing, and the cough is productive, he says he suffers from allergies. His nose is runny and his eyes are watering. He's also having a sore throat and requests cough drops. Current GAF is 28%. He will be followed up on the inpatient unit.
--- NOTE | 2016-08-12 13:55 | SOCIAL WORKER PROG NOTE PSYCH ---
Social Work Progress Note Progress Note Pt unable to participate in social hx due to psychotic sx.
--- NOTE | 2016-08-12 13:58 | History & Physical ---
General Information and HPI History of Present Illness: "Patient brought in on a police paper for erratic behavior. Patient was walking into traffic. Patient has been noncompliant with his medications. Patient had a recent admission to Inpatient Psychiatry and he refused all medications during admission. Appropriate judgment came in and evaluated him and determined that he was competent. Patient was subsequently discharged. The police were called 3 separate occasions this morning. With a prominent brought him in for evaluation. Patient is agitated but redirectable. Patient is confused. Patient is responding to internal stimuli and is arguing with himself. Patient denies hallucinations." Patient not good historian, not very coperative. Allergies/Medications Allergies: Coded Allergies: bupropion (From WELLBUTRIN) (VOMITING, ILL 07/02/16) divalproex sodium (From DEPAKOTE) (VOMITING, ILL 07/02/16) haloperidol (From HALDOL) (VOMITING, ILL 07/02/16) lithium (VOMITING, ILL 07/02/16) lorazepam (From ATIVAN) (VOMITING, ILL 07/02/16) olanzapine (From ZYPREXA) (VOMITING, ILL 07/02/16) spinach (N/V 07/02/16) squash (N/V 07/02/16) sweet potato (N/V 07/02/16) Uncoded Allergies: AVACADO (N/V 07/02/16) ZUCCHINI (N/V 07/02/16) Home Med list Olanzapine 5 MG TABLET 5 MG PO 0800,2200 clarify thinking/stable moods Compliance With Home Meds: POOR Past History Travel History Traveled to [place] past 21 day No Medical History Any Pertinent Medical History? 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 unknown Functional Ability ADLs Independent: dressing, eating, toileting, bathing. Ambulation: independent IADLs Independent: shopping, housework, finances, food prep, telephone, transportation , medication admin. Review of Systems Review of Systems Constitutional: Reports: see HPI. Denies: no symptoms, chills, diaphoresis, fever. EENTM: Denies: no symptoms, blurred vision, double vision, visual changes, eye pain. Cardiovascular: Denies: see HPI, chest pain, edema. Respiratory: Denies: no symptoms, cough, hemoptysis, orthopnea. GI: Denies: no symptoms, abdominal pain, bloating, constipation. Genitourinary: Denies: no symptoms, see HPI, discharge, dysuria. Musculoskeletal: Denies: no symptoms. Skin: Denies: no symptoms. Neurological/Psychological: Denies: no symptoms, cognitive dysfunction, confusion, dementia. Hematologic/Endocrine: Denies: no symptoms, bruising, bleeding. Immunologic/Allergic: Denies: no symptoms, splenectomy, HIV/AIDS. All Other Systems: Reviewed and Negative Exam & Diagnostic Data Last 24 Hrs of Vital Signs/I&O Vital Signs Date Time Temp Pulse Resp B/P B/P Pulse O2 O2 Flow FiO2 Mean Ox Delivery Rate 08/12 1305 100 168/84 08/12 1048 103 20 171/88 97 Room Air 08/12 1029 97 08/12 0743 97.4 95 20 146/77 96 Room Air 08/11 2111 97.0 88 20 136/82 98 Room Air 08/11 1407 97.1 82 18 122/70 95 Room Air Physical Exam General Appearance Alert, Oriented X3, No Acute Distress Skin No Rashes, No Breakdown HEENT Atraumatic, PERRLA, EOMI Neck Supple, No JVD, No thryomegaly Cardiovascular Regular Rate, Normal S1, Normal S2 Lungs Clear to Auscultation Abdomen Normal Bowel Sounds, Soft Neurological Exam Findings: Normal Gait, Normal Speech, Strength at 5/5 X4 Ext Cranial Nerves II through XII: intact Extremities No Clubbing, No Cyanosis Assessment/Plan Assessment: schizoaffective disorder with acute pyshcosis As Ranked By This Provider Problem List: 1. Schizoaffective disorder Miscellaneous Miscellaneous Documentation Attending Case Discussed With: EULALIO BROWN MD Primary Care Physician: PATIENT HAS NO PRIMARY CARE DR Patient sees these Specialists none Level of Patient Care: EMMY Ferris Resident Review Statement Resident Statement: examined this patient, reviewed EMR data (avail) Attending MD Review Statement Attending Statement Attending MD Statement: examined this patient, reviewed EMR data (avail), discussed with nursing Attending Assessment/Plan: 46 o/m with schizoaffective disorder comes with acute physchosis and admitted to inpatient pyschiatry bed [facility]. cont current care as per pysch. case management consult.
--- NOTE | 2016-08-12 14:58 | NUR ---
ADMITTED FROM ED ON VOLUNTARY FOR SCHIZO AFFECTIVE D/O. Police had been called because he was walking in traffic. Is loud, disorganized and paronoid. WHile doing the interview he saw birds outside the window and identified them as his birds. when asked how he knew they were his said he could tell and the began cleaning the floor. He was unable to sit still and continued moving from one idea to another. quickly became intolerent of questions asking why I needed to know everything. exhibited some grandiosity boasting about the expensive bikes he has owned. was cooperative with medications offered PO.
[2016-08-12 16:08] VITALS: BP 150/89; BP 151/79
--- NOTE | 2016-08-12 17:45 | NUR ---
PT IS UPSET, YELLING WHILE IN MILIEU AND IN PT ROOM. BEHAVIOR APPEARS DISORGANIZED AND PT SEEMS DELUSIONAL/PARANOID. DIFFICULTY IN RE-DIRECTING PT AT TIMES. HYPERACTIVE, PACING ABOUT UNIT. MOOD IS UNSTABLE, AFFECT IS BRIGHT, CAN BE LABILE AT TIMES. COMMUNICATION IS LOUD, PRESSURED, HYPERVERBAL. APPETITE IS NORMAL. PT DENIES SI AT THIS TIME.
[2016-08-12 19:42] VITALS: BP 151/90
[2016-08-12 22:08] VITALS: BP 141/77
[2016-08-12 23:03] VITALS: BP 138/72
[2016-08-13 02:03] VITALS: BP 135/85
--- NOTE | 2016-08-13 03:30 | NUR ---
1:1 MAINTAINED, UP IN INTERVALS,VITAL SIGNS STABLE, ELEVATED VT NOTED 94. GIVEN PO FLUIDS. RETURNED TO BED AND SLEEP. HAS HARD TIME FOLLOWING DIRECTION AT TIMES.
--- NOTE | 2016-08-13 07:21 | CPS MD/APRN INITIAL ASSE PSYCH ---
Psychiatric Admission Security Lead's Note Reviewed: Yes Patient Seen and Examined: Yes Identifying Information: This is the 3rd [facility] admission on a P.E.C. within 6 weeks for a 46-year-old single man who continues to reside in the [facility] and is unemployed/ disabled. Chief Complaint: "I need to go home." Reaction to Hospitalization: very negative; was admitted on a P.E.C. for the 3rd time in about 6 weeks and for a 3rd time immediately requested a Probable Cause hearing (see in chart original of P.E.C. signed on 08/11/2016 by Champ Guaman M.D., certifying to patient's grave disability at that time) History of Present Illness Onset of Illness: Patient was brought into the E.D. on this occasion by EMS after they were summoned "due to patient acting erratic, walking in and out of traffic." Once there he denied any problems and demanded to be released. He denied suicidal or homicidal ideation, alcohol or other drug abuse. He was reported as becoming "verbally abusive to staff and others... swearing and being loud...yelling..." He was medicated with Thorazine while still in the E.D. Circumstances Leading to Admission: Once again, patient was brought into the E.D. after being found walking in traffic in an erratic manner, police called to the scene who in turn directed EMS to bring patient into the E.D. for evaluation. Problem(s) Justifying Need for Admission: --patient was determined to be gravely disabled by E.D. attending physician Dr. Guaman who signed a P.E.C. attesting to this. Other HPI: (see the [facility] initial assessments of 07/04/2016 and 07/18/2016 and discharge summaries from 07/05/2016 and 07/23/2016 in the electronic medical record); he has reportedly been noncompliant with treatment and medications since most recent discharge on 07/23/2016, per [facility] care staff report. Past Psychiatric History Past Diagnosis(es)- if any: diagnoses per most recent [facility] discharge (07/23/2016): Schizoaffective Disorder, Mixed; MRE mixed Past Precipitating Factors- if any: --worsening noncompliance with outpatient treatment and psychotropic medication therapy --escalating interpersonal conflicts with neighbors, landlord, others --potentially dangerous behaviors such as walking out into traffic and harassing motorists - Include inpatient and outpatient treatment Treatment History: (see under "Other HPI") History of Suicide Attempts or Gestures unknown Substance Abuse History: last positive urine tox screening here was on 05/27/2016 for cocaine; 3 more recent screens up through 08/11/2016 have been negative; there is some question of past history Marijuana use; of 4 blood alcohol levels drawn here since 05/2016 all have been negative except for a minimal concentration of 36.0 a month ago Allergies: Coded Allergies: bupropion (From WELLBUTRIN) (VOMITING, ILL 07/02/16) divalproex sodium (From DEPAKOTE) (VOMITING, ILL 07/02/16) haloperidol (From HALDOL) (VOMITING, ILL 07/02/16) lithium (VOMITING, ILL 07/02/16) lorazepam (From ATIVAN) (VOMITING, ILL 07/02/16) olanzapine (From ZYPREXA) (VOMITING, ILL 07/02/16) spinach (N/V 07/02/16) squash (N/V 07/02/16) sweet potato (N/V 07/02/16) Uncoded Allergies: AVACADO (N/V 07/02/16) ZUCCHINI (N/V 07/02/16) Home Med List: patient has been consistently refusing to take any medications offered on an outpatient basis - Include any medical condition(s) that may - impact the patient's recovery/remission Past History Medical History Any Pertinent Medical History? unobtainable Blood Transfusion Hx: No Neurological: NONE EENT: NONE Cardiovascular: NONE Respiratory: NONE Gastrointestinal: NONE Hepatic: NONE Renal: NONE Musculoskeletal: NONE Psychiatric: insomnia, schizo affective disorder (R/O bipolar spectrum disorder) , substance abuse (Marijuana/occ. 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 Other Medical Hx: no abnormalities found on H&P earlier this month; to date has refused to cooperate with physical exam during current admission History of MRSA: No History of VRE: No History of CDIFF: No Isolation History: Standard Surgical History Surgical History: none Psychiatric Family/Social Hx Family History Psychiatric Illness: unknown Substance Use: unknown Suicides: unknown Social History Living Situation: (see above, under "Identifying Information") Significant Relationships (family/friends): no evidence of any at this time (had worked some with 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 Gonzalez Education: unknown Vocation/Occupation: disabled Legal: currently on probation; P.O. is Thomas Ridley of [address]; it has been said that patient may be in violation of probation or at risk for consequences Healthly Behaviors Screening Tobacco Screening Tobacco Use from ED Docu: Current Not Daily - If tobacco counseling indicated - the following topics are required. - #1 Recognizing dangerous situations. - #2 Coping Skills. - #3 Basic information about quitting. Status of Tobacco Cessation Counseling: Counseling Refused Cessation Med Status Nicotine Patch Ordered (given 14mg nicotine patch) Alcohol Screening - ETOH screen POS if BAL >=80 or Audit-C>= M4/F3 Audit-C Score from Diag Assess: 0 Blood Alcohol Level: GIOVANNA = less than 10.0 Alcohol Use Screening Results: Neg per Audit C &/or BAL - If ETOH counseling indicated - the following topics are required. - #1 Express concern about the patient's - drinking at unhealthy levels, include informing - of national norms for moderate drinking: - men <= 14 drinks/week, max 4 drinks/occasion - women <= 7 drinks/week, max 3 drinks/occasion - #2 Providing feedback, including linking alcohol to - negative physical effects (liver injury, hypertension) - negative emotional effects (relationship problems and - depression) - negative occupational consequences (reduced work - performance) - #3 Advising the patient to abstain from alcohol or - to drink below national norms for moderate drinking - (as listed above). Status of ETOH Use Counseling: N/A B/C NO ETOH Use Metabolic Screening - Screen if on a Neuroleptic Medication - Metabolic screening should include: - Blood Pressure, BMI, Glucose or Hgb A1c, & a - Lipid profile from within the past 365 days. Metabolic Screening ([x]) Not Applicable, patient not on a neuroleptic. (refusing neuroleptic medication) OR () Patient on a neuroleptic(s) . Enter below results for Glucose or Hemoglobin A1C, and lipid panel if obtained during the last 365 days. BMI: 26.600 Blood Pressure: 137/85 Laboratory Results (If applicable): Exam and Plan Mental Status Examination Ambulation Status: without assistance Appearance: rather disheveled, darting eye movements as if scanning for danger/potential threats Attitude towards examiner: ambivalent but more positive than previously Psychomotor activity: increased, some pacing Behavior: somewhat hostile, guarded, suspicious Quality of speech: not productive but rather rapid when does speak, angry, challenging tone, somewhat variably loud Affect: constricted but short, rather angry Mood: dysphoric, unhappy, irritable Suicidal Ideation: no evidence of, no expression of by patient Homicidal Ideation: no evidence of, no expression of by patient Hallucinations: unknown, but scattered instances of being observed or heard seemingly talking to himself when no one is in the area, at times having seemingly rather heated "interactions" with thin air Paranoid/Delusional Material: appears very guarded and likely paranoid but no direct expression of clearly paranoid ideation, except as it is his contention that there is no reason whatsoever for him to be detained in hospital now, or in the past Difficulties with thought organization: there is a pausity of expressed thinking but what he does say is not grossly disorganized or disjointed Insight: appears very limited (e.g. sees no pattern in this being the 3rd time he has been similarly involuntarily admitted to hospital within little more than a month) Judgment: appears impaired/poor Orientation: knows where he is and the circumstances but not pleased with either Cognition: difficult to assess due to limited communication Memory Function: grossly intact (e.g. recalled the procedure and requested a Probable Cause hearing promptly upon arrival here) Estimate of intellectual functioning: average Assets/Strengths Patient Identified Assets/Strengths: does not provide any but knows he wants to be outside of the hospital, living his own independent life as he wishes Impression/Plan Impression and Plan: This is the 3rd similar presentation within no more than a 6 week period for a man with history of chronic psychotic disorder who has recently been experiencing significant adjustment difficulties in the local community with police being contacted and the latter directing patient to be evaluated at the [facility] He has been committed from the E.D. as Gravely Disabled on all 3 occasions and then requested a Probable Cause hearing on every occasion, the first two resulting in the waste baler releasing him for lack of evidence of ongoing grave disability and each time failing to follow through with outpatient referrals/treatment or prescribed medications. Currently, despite patient claiming to understand that compliance with outpatient treatment being one of the stipulations of his probation he has not been compliant with treatment recommendations or even attendance at designated treatment venue ([facility] in [place], [place] His problematic behavior at the time of last two presentations , allegedly walking in/through moving traffic seemingly preoccupied with internal stimuli (?hallucinated voices, other) would appear to be potentially highly dangerous to his own safety and possibly also to motorists trying to avoid driving into him, etc. At this point, patient has told me directly that he believes he is "on my way back to half-way" but will not or cannot collaborate ( at least with me) to attempt to avoid this consequence which he clearly does not want (e.g. fears he will be at risk/in personal danger back in half-way and in this shows good judgment though not with respect to how best to avoid this eventuality). A third Probable Cause hearing is now scheduled for the early afternoon of 08/14/2016 (in the [facility] conference room). - Include all active medical diagnosis that require tx DSM 5 Diagnosis(es): Schizoaffective Disorder, Mixed R/O Schizophrenia with paranoid ideation - Initial Tx Plan for Active Psych & Medical Conditions Treatment Plan: --patient has required more than one dose of PRN Thorazine for belligerent, threatening behavior directed at treating staff --regular doses of Thorazine have been prescribed but invariably refused by patient --the outcome of Probable Cause hearing scheduled for 08/14/2016 will determine whether patient will continue to be hospitalized on [facility] and offered participation in all modalities of treatment available there (including psychotropic medications) - Factors that would help patient function - in a less restrictive setting. Factors: --significant positive change in patient's attitude with regard to participation in all treatment modalities --willingness to f/u with intensive outpatient aftercare in an [facility] (with [facility] or here) --willingness to accept neuroleptic treatment here
[2016-08-13 07:39] VITALS: BP 148/87
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
--- NOTE | 2016-08-13 11:53 | SOCIAL WORKER PROG NOTE PSYCH ---
Social Work Progress Note Progress Note Attempted to do social hx, but pt was unable to participate due to his agitation.
--- NOTE | 2016-08-13 11:55 | NUR ---
PT HAS BEEN MONITORED ON ONE TO ONE STATUS. HE IS AGITATED AT TIMES AND DEMANDING AND ENTITLED. HE IS UNABLE TO TOLERATE GROUPS AND HE IS RESISTIVE TO MEDS. PT DID TAKE A PRN OF THORAZINE AND BENADRYL WITH SECURITY PRESENT. HE SHOWS NO INSIGHT INTO HIS BEHAVIOR..OR NEED TO BE IN THE HOSPITAL.HE IS LOUD AND USING FOUL LANGUAGE
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
[2016-08-13 12:04] VITALS: BP 147/75
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
--- NOTE | 2016-08-13 14:02 | NUR ---
PT WAS CALMER AFTER RECEIVING PRN THORAZINE.HE RESTED IN HIS ROOM FOR SHORT TIME AFTER LUNCH.PT DENIES HAVING ANY THOUGHTS OF HARMING HIMSELF OR OTHERS AT THIS TIME
--- NOTE | 2016-08-13 14:40 | SOCIAL WORKER PROG NOTE PSYCH ---
Social Work Progress Note Progress Note Patient became violently upset suddenly, although he had been in some control earlier in the day, and even participated in a social history. I had immediately stopped when he had reported that he was becoming upset about some of the past events that I was asking about, At that point we agreed to meet later, and to jointly call his chief analytics officer. At this point patient gave impression that chief analytics officer is a support. I had placed a call to Thomas Ridley at [phone], extension [phone] ([place] [facility] [place]). Ledt message requesting that he call me back regarding Jose Antonio. I then moved on to speak with another new patient. During our conversation, Jose Antonio banged very loudly on the door, and escalated more from there, and an "order 7" called as patient out of control, and people could have been hurt. Security had to be called as patient was completely out of control, and required medication. There is a probable cause hearing scheduled for tomorrow, following another hearing that will happen in the energency room regarding another patient. I was able to contact Champ Alfaro, Thomas Ridley's fuel system maintenance supervisor, and he stated that he would get Thomas to call me back by 5 p.m. today. Meanwhile, I spoke to Alfie Cartagena who is in charge of [facility]. Alfie indicated that patient has had a tumultuous history over the past year, particularly the past 6 months, and Alfie can't put his finger on any one incident that caused things to change. He did say that about 6 months ago, he cut himself off from the last person with whom he was friends with at the . Alfie describes behavior as extremely disruptive to everyone, and states that patient screams very loudly during the middle of the night; and that he often stands in the middle of the road "almost as if he is challenging cars" He has cut self off from even people with whom hehad had a najera in past. Patient has been banging on doors and connelly, and doing the very sa,e thimgs that he had accused other residents of doing. Patient showers with clothes on, and he is an extremely disruptive force to all residents. <any of these actions are on recordigs due to surveillence. At this point he faces eviction from which has been talked about for some timel however people don;t want to see him homeless.
[2016-08-13 16:07] VITALS: BP 149/83
--- NOTE | 2016-08-13 16:29 | SOCIAL WORKER PROG NOTE PSYCH ---
Social Work Progress Note Progress Note Called [facility] and informed them that Jose Antonio is filing Probable Cause paperwork. Paperwork was submitted later in the afternoon. Hearing is scheduled for 12:30pm tomorrow.
--- NOTE | 2016-08-13 16:30 | SOCIAL WORKER TX PLAN PSYCH ---
Treatment Plan - Please Document: - Evidence that there is ongoing collaboration between - the patient and the interdisciplinary team, - including the patient's active participation and - responsibility for engaging in the treatment regimen, - and that the treatment plan is individualized and - relevant to the patient's conditions. - Treatment plan should reflect documentation indicating - that all active therapeutic efforts are included. Strengths/Capabilities: has out pt tx at [facility] Physical Limitations (Interventions): none reported Problem/Goals #1 Problem #1: psychosis Goal (Short Term): Patient to be able to agree that he has been exhibiting erratic behavior which is disturbing to others and could lead to eviction Patient to agree to mental health treatment Goal (Fdc): Patient will agree to comply with court ordered treatment for mental health Interventions: Group and individual therapy. Working with mental health treaters Agreeing to medication trial Modalities: group and individual and family therapy DSM5/PS Stressors/Medical Prob Diagnosis' (DSM 5, Stressors, Medical): Schizoaffective d/o, Bipolar type F25.0 Current GAF: 15 Substantiation for Above Diagnosis: patient exhibiting irrational and, at times, seemingly threatening behavior. Patient refuses to cooperate with mental health treatment; and it has been court ordered. Treatment Team - Responsibilities of members of the treatment team include: - Medication Management- MD or PHOTONICS ENGINEERING TECHNICIAN - Medication Administration and Monitoring- Nurse - Group Therapy- Occupational Therapist - 1:1 Therapy,Disch Planning,family involvement-Food Service Lead
--- NOTE | 2016-08-13 18:06 | NUR ---
PT IS AGITATED, AGGRESSIVE - YELLING AT STAFF/PEERS. HYPERACTIVE - PACING ABOUT UNIT AT A FAST PACE. TOOK A NAP DURING THE AFTERNOON AFTER DINNER. ANGRY, VOLATILE SPEECH AND BEHAVIORS. DIFFICULT TO RE-DIRECT. CURRENTLY ON A 1:1 WITH A PATIENT SAFETY MONITOR. MOOD IS UNSTABLE, AFFECT APPEARS BRIGHT. PT IS IRRITABLE WITH OTHERS. SPEECH IS LOUD, PRESSURED, AND HYOERVERBAL. APPETITE IS NORMAL. PT DENIES SI AT THIS TIME.
[2016-08-13 19:43] VITALS: BP 151/90
--- NOTE | 2016-08-14 02:48 | NUR ---
2117 PT. ASKING FOR LOZENGE AND HIS MEDS ADMINISTERED SCHEDULED INDERAL AT THAT TIME AND VALIUM 10MG PT WAS LITTLE ANXIOUS PACING. 2305 PT. GETTING MORE AGGITATED MEDICATED WIH BENADRYL 50MG AND THORAZINE 25MG. PT THE WENT TO ROOM SLEPT [id number]. AGAIN AWAKE RESTLESS MEDICATED WITH VALIUM 10MG PO. BACK TO SLEEP. 249 AWAKE TO BATHROOM.
--- NOTE | 2016-08-14 03:08 | NUR ---
0310 THORAZINE AND BENADRYL ADMINISTERED WITH TEA.
--- NOTE | 2016-08-14 04:18 | NUR ---
0315 SECURITY DOWN TO TALK TO PT. PT DID AGREE TO SIT IN LOUNGE UNABLE TO SLEEP IN BED SO HE SAT IN CHAIR COOPERATIVE. 0420 PT. STILL AWAKE B7UT COOPERATVE SITTER AT SIDE.
[2016-08-14 04:48] VITALS: BP 134/81
[2016-08-14 07:52] VITALS: BP 137/85
--- NOTE | 2016-08-14 11:28 | NUR ---
PT IS LOUD AND PRESSURED IN HIS SPEECH. HE IS DIFFICULT TO REDIRECT AT TIMES. HE BECAME SLIGHTLY AGITATED WHEN TOLD THE FIELD CREW CHIEF WOULD BE UNABLE TO MAKE IT TO THE HOSPITAL TODAY. HE WAS WILLING TO TAKE PRN MEDS AND WE WILL MONITOR EFFECT. PT SHOWS NO INSIGHT INTO HIS ILLNESS OR NEED FOR MEDICATIONS. HE IS DEMANDING AND ENTITLED AND USES FOUL LANGUAGE REQUIRING ONE TO ONE MONITORING.
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
--- NOTE | 2016-08-14 12:09 | NUR ---
[id number] AT THIS TIME PER DR. LUIS, SEE MD NOTE RE: DETAILS.
--- NOTE | 2016-08-14 12:09 | IP INCIDENTAL NOTE PSYCH ---
Incidental Note Notation: Restraint Note: Patient seen [id number] in the context of his bout of dangerous agitation. Per staff, patient was throwing objects. Did not respond to staff redirection. Order #7 called. Patient did not de-escalate with security presence. Loud and irritable. I ordered 4-point restraints due to danger to others. Medication orders have been updated, including addition of standing Thorazine 100 mg tid and increase in prn Thorazine. I have discontinued Benadryl, Valium and propranol. Monitor response to medications and behavioral restraints.
--- NOTE | 2016-08-14 12:11 | NUR ---
PT WAS JUST SEEN BY DR. LUIS AND FACE TO FACE COMPLETE PER MD. NO PHYSICAL ISSUES OR COMPLAINTS REPORTED OR OBSERVED, FLUIDS AND URINAL OFFERED, CONTINUOUSLY SCREAMING AND THREATENING STAFF, NOT REDIRECTABLE, SECURITY ON UNIT AND RESTAINTS CONTINUE AT THIS TIME DUE TO LACK OF SAFETY AWARENESS AND INSIGHT. + CMS, CIRCULATION, NO DISTRESS NOTED, ACTIVE RANGE OF MOTION IN BED, WATCH REMOVED BY STAFF AND LOCKED WITH OTHER BELONGINGS.
[2016-08-14 12:50] VITALS: BP 119/93
--- NOTE | 2016-08-14 14:14 | NUR ---
PT URINATED IN THE BED. HE ALSO VOMITED A SMALL AMT OVER THE SIDE OF THE BED. PT ASSISTED WITH CARE AND BRIEF PLACED ON PT. PT USING LOUD FOUL LANGUAGE DURING CARE.
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
--- NOTE | 2016-08-14 15:47 | SOCIAL WORKER PROG NOTE PSYCH ---
Social Work Progress Note Progress Note Jose Antonio kept approaching me regarding what time probable cause meeting would be held. Patient was aggressive in speech and was being monitored closely by security, who steered patient away from me. Patient became very upset that hearing was postponed, and he wound up in 4 point restraint as he is only focused on getting discharged. The hearing was rescheduled for 8:30 a.m.on 08-15-16 Jose Antonio continues to require medication and close supervision
--- NOTE | 2016-08-14 18:31 | NUR ---
PT IS AGGRESSIVE WITH STAFF, AGITATED. CURRENTLY ON A ONE TO ONE WITH A PATIENT SAFETY MONITOR. SPITTING AT STAFF, CURSING, YELLING. MOOD IS UNSTABLE, AFFECT IS BRIGHT, COMMUNICATION IS HOSTILE, THREATENING, LOUD, HYPERVERBAL. APETITE IS REDUCED.
--- NOTE | 2016-08-14 18:59 | NUR ---
Patient see for face to face. Denies physical issues currently and sleeping. Patient received PO fluids and declined dinner earlier. Patient continues to be distruptive swearing using vulgar language and threatening staff. IM administered approcimately at 1715. Patient not receptive to redirection and yells over attempts to discuss current condition. Patient spitting, defecating and urinating on self. Multiple brief changes and patient pulls them off. Safety mitts provided to patient for safety. Patient reports he is being singled out and blamed for "everything" Continues to lack insight and reports no changes to behaviors when released from restraints. +circulation, +CMS, ROM performed on all extremities without issues. 4 point restraints to continue.
--- NOTE | 2016-08-15 03:33 | NUR ---
PT IS CONTINUED IN 4 POINT RESTRAINTS FOR CONCERN OVER CONTINUED AGGRESSION. PT HAS BEEN UNABLE TO FOLLOW REDIRECTION REQUESTS INCLUDING LAST HYGIENE ASSIST BY 5 STAFF AND FLUID INTAKE.
--- NOTE | 2016-08-15 07:08 | NUR ---
PT REMAINS IN 4 POINT RESTRAINTS. PT SLEEPING ON AND OFF THRU NIGHT. PT EASILY AROUSABLE, BECOMING IRRITABLE AND AGITATED UPON WAKING. PT SCREAMING, HOLLERING, SWEARING, THREATENING STAFF AT 0530. PT OFFERED URINAL- PT REFUSED AND DEMANDED TO BE RELEASED, THREATENING STAFF. PT GIVEN CPZ 100 PRN AT THAT POINT WITH WATER. PT CONTINUES TO BE UNABLE TO RESPOND TO REDIRECTION.
[2016-08-15 08:14] VITALS: BP 126/78
--- NOTE | 2016-08-15 08:33 | NUR ---
AT 0800 TEAM DECISION MADE TO REMOVE 4 POINT RESTRAINTS, PT IS CALM, COOPERATIVE AND HAS BEEN MED COMPLIANT FOR ABOUT 24 HOURS, NO AGITATION OR AGGRESSION NOTED, BOUNDARIES/LIMITS AND SAFETY PRECAUTIONS SET AND PT IS ABLE TO VERBALIZE UNDERSTANDING AND AWARENESS. PT SHOWERED, TENDED TO ADLS, ATE BREAKFAST AND CURRENT AT HIS HEARING.
--- NOTE | 2016-08-15 11:23 | SOCIAL WORKER PROG NOTE PSYCH ---
Social Work Progress Note Progress Note Probable cause hearing was held this morning, with the engine head repairer advicing patient that the law would err on the side of the hopital unless it found that the admission was not justifiable at all. Dr. Bridges testified on patient's need to be in the hospital. The patient was in a calm mood, as he had taken medication, and he actually was more interested in finishing breakfast, asking if he could leave the meeting. He did ask that he get a copy of the paperwork, and he was assured he would. Patient will continue to be treated here. The engine head repairer mentioned enlisting [facility] [employer] [facility] to see if there were slots available, and the hospital would not be required to pay. I called Ivone Rangel later to see if any slots were available, but she had left early for the day. Message left requesting that she get back to me about this. Jose Antonio has been calm this morning, and even said thiago to me by name later this a. m.
[2016-08-15 12:12] VITALS: BP 139/90
--- NOTE | 2016-08-15 12:14 | SOCIAL WORKER PROG NOTE PSYCH ---
Social Work Progress Note Progress Note Attempted to speak with patient's landing signal officer, but he was unavailable. I left message on his voicemail that probable caise hearing was held, and that diving judge decided that patient did need to remain in the hospital at thisb point.
--- NOTE | 2016-08-15 14:47 | CP SOUTH PROGRESS NOTE PSYCH ---
Psych (Inpt) Progress Note Progress Note Include the following elements, when applicable: Involvement in the active treatment of the patient with behavioral observations of the patient and the patient's response to the treatment. Review of the ongoing treatment process in the context of the treatment plan. Indication of how multi-disciplinary staff members are carrying out the treatment plan. Plans for future interventions and recommendations for revision of the treatment plan. Liaison with other physicians/providers. Progress Note: Case discussed with [facility] rehab nursing tech this morning. Patient was in restraints continuously since around noon yesterday until 8 AM this morning. Patient reportedly screamed and acted up around 5:30 AM. He is now medication compliant. Cooperative and speaking to staff with "please and thank you." Patient had his probable cause hearing this morning and Government Affairs Director Lillian of the [place] [address] [facility] presided. He found probable cause for the patient to stay. The administrative assistant front desk recommended referral to [facility]. Patient was seen at 8:33 AM, before his hearing. Reported feeling good, stating he was doing okay but very hungry and having a dry mouth. Otherwise tolerating medications. Denied suicidal and homicidal ideation. Denied auditory and visual hallucinations and paranoid ideation. Described sleep as fine and energy as good. During the probable cause hearing, the patient tried to pressure the administrative assistant front desk to hurry up so the patient could go eat. IMPRESSION: Slow progress. Continue present treatment plan. I renewed one-to-one sitter order due to ongoing potential for agitation.
[2016-08-15 15:43] VITALS: BP 153/96
--- NOTE | 2016-08-15 16:58 | SOCIAL WORKER PROG NOTE PSYCH ---
Social Work Progress Note Progress Note [facility] Concurrent completed [facility] website. Check website for next review.
--- NOTE | 2016-08-15 17:54 | NUR ---
PT IS AGITATED, SLIGHTLY AGGRESSIVE WITH STAFF/PEERS, CAN BE DEMANDING AT TIMES. CURRENTLY ON A ONE TO ONE WITH A PATIENT SAFETY MONITOR. MOOD IS UNSTABLE, AFFECT APPEARS BRIGHT, ANXIOUS AT TIMES, DELUSIONAL/PARANOID THOUGHTS EXPRESSED ON OCCASSION. COMMUNICATION IS ORGANIZED AND APPEARS LOUD, HYPERVERBAL, PRESSURED. APPETITE IS NORMAL. PT DENIES SI AT THIS TIME.
[2016-08-15 20:01] VITALS: BP 148/82
--- NOTE | 2016-08-16 06:10 | NUR ---
PT OFF OF 4 POINT RESTRAINTS. HE REMAINS ON 1:1. PT AWAKE AND RESTLESS ON NIGHTS, PACING, IRRITABLE. PT GIVEN CPZ 100MG 1 X DOSE AT 0045. PT WAS CLEARLY RESISTING SLEEP, BUT THEN WENT TO BED AT 0230. PT BACK UP AT 0430- IRRITABLE AGAIN REQUIRING REDIRECTION. CPZ 100 PRN WAS GIVEN AT 0530. PT IS ON A PEC. PT LOST PROBATE HEARING YESTERDAY.
[2016-08-16 07:35] VITALS: BP 141/78
[2016-08-16 12:25] VITALS: BP 128/70
--- NOTE | 2016-08-16 14:08 | NUR ---
PT VISIBLE IN THE [place] THROUGHOUT THE DAY. HE HAS NOT BEEN IN ANY GROUPS TODAY, BUT HAS BEEN INTERACTING WITH PEERS AND STAFF. PT HAS BEEN COOPERATIVE WITH STAFF DIRECTION. HOWEVER, AROUND 1410 PT ASKED FOR A BAG TO LEAVE, THINKING HE WAS GOING TODAY. HE WAS UPSET WHEN HE HEARD THAT HE WAS NOT AND BEING PROBATED TO STAY HERE. PT DENIES THOUGHTS OF HURTING HIMSELF WHEN ASKED.
--- NOTE | 2016-08-16 14:10 | CP SOUTH PROGRESS NOTE PSYCH ---
Psych (Inpt) Progress Note Progress Note Include the following elements, when applicable: Involvement in the active treatment of the patient with behavioral observations of the patient and the patient's response to the treatment. Review of the ongoing treatment process in the context of the treatment plan. Indication of how multi-disciplinary staff members are carrying out the treatment plan. Plans for future interventions and recommendations for revision of the treatment plan. Liaison with other physicians/providers. Progress Note: Case and treatment plan discussed in team meeting. Staff reports that the patient took other patients' laundry. Refused Thorazine this morning but later took it. I increased standing Thorazine to 200 mg 3 times a day. Patient seen at 12:19 PM. Feels well. Has no complaints. Mood is good. Tolerating Thorazine. Affect is calm and euthymic. Rates sad mood and anxiety both 0/10. Denies feeling hopeless, helpless, worthless or guilty. Denies active and passive suicidal ideation. Denies homicidal ideation. Denies auditory and visual hallucinations and paranoid ideation. Reports sleep is good. Describes appetite as good, real good. Describes energy as great. I informed patient that if his improvement continues on this trajectory, he will likely be discharged next week. IMPRESSION: Slow progress. Continue present treatment plan. Improving on Thorazine. I have renewed one-to-one sitter due to recent bouts of agitation with difficulty being redirected. In all likelihood, sitter will likely be discontinued soon. Ancicipate likely discharge sometime next week.
--- NOTE | 2016-08-16 15:29 | SOCIAL WORKER PROG NOTE PSYCH ---
Social Work Progress Note Progress Note Met briefly with Jose Antonio this afternoon. He continues to be disorganized. He asked when he would be able to leave, and I resonded as neutrally as possible, indicating that he would help himself by taking medication. It seemed that any prolonged discussion could be upsetting to him. I said that he was welcome to talk with me if he had a particular question.
[2016-08-16 16:12] VITALS: BP 148/94
[2016-08-16 19:51] VITALS: BP 152/86
--- NOTE | 2016-08-17 04:07 | NUR ---
SLEPT WELL AWAKE 2230 PT.UPSET BECAUSE HE WAS WOKEN UP FOR MEDS.
--- NOTE | 2016-08-17 07:35 | NUR ---
REFUSED THORAZINE FROM MED NURSE THIS NURSE TRIED TO GET PT. TO TAKE MED REFUSED " THORAZINE MAKES ME GO CRAZY AND FEEL AWFUL" I WANT TO GO TO SLEEP I AM FEELING BETTER JUST WANT TO SLEEP. PT. RETURNED TO ROOM REMAINED QUIET NO ISSUES AT ALL. SLEPT WELL WOKE UP THIS AM COOPERATIVE WITH CARE PLEASANT TO ALL STAFF. SITTER REMAINS WITH PT.
[2016-08-17 08:12] VITALS: BP 153/80
--- NOTE | 2016-08-17 11:45 | CP SOUTH PROGRESS NOTE PSYCH ---
Psych (Inpt) Progress Note Progress Note Include the following elements, when applicable: Involvement in the active treatment of the patient with behavioral observations of the patient and the patient's response to the treatment. Review of the ongoing treatment process in the context of the treatment plan. Indication of how multi-disciplinary staff members are carrying out the treatment plan. Plans for future interventions and recommendations for revision of the treatment plan. Liaison with other physicians/providers. Progress Note: [ He has no complaints at this time, he denies depression or anxiety denies si/hi or psychosis. he has been refusing his thorazine and requesting that senior copywriter dc it. She slept well last night denies any other complaints no behavioral issues. aaox3 guarded fair eye contact. soft slow speech "fine" mood flat affect. disorganized denies si/hi or psychosis. Assoc wnl i/j limited schizaffective d/o continue current tx plan, renew 1;1 for safety.
--- NOTE | 2016-08-17 12:36 | NUR ---
PT WAS RESISTIVE TO MEDS THIS AM BUT WHEN REMINDED THAT THE FORK REPAIRER AND HIS MILKING MACHINE TECHNICIAN HAVE ADVISED HIM TO TAKE HIS MEDS HE DID TAKE THEM. HE IS RESTLESS AT TIMES AND DISORGANIZED. HE HAS PERIODS OF IRRITABILITY. HE DENIES ANY THOUGHTS OF SUICIDE OR SELF HARM AT THIS TIME. PT IS MONITORED ON ONE TO ONE STATUS FOR SAFETY
[2016-08-17 12:58] VITALS: BP 146/85
[2016-08-17 16:06] VITALS: BP 146/81
--- NOTE | 2016-08-17 17:49 | NUR ---
PT IS COOPERATIVE WITH STAFF AND PEERS, AND COMPLIANT WITH UNIT RULES. OFTEN IN MILIEU, INTERACTING WITH OTHERS. AT TIMES NEED RE-DIRECTION, THOUGH IS OFTEN APPROPRIATE. CURRENTLY ON A ONE TO ONE WITH A PATIENT SAFETY MONITOR. MOOD IS STABLE, AFFECT APPEARS BRIGHT, COMMUNICATION IS ORGANIZED AND APPEARS NORMAL IN ALL RESPECTS, CAN BE SLIGHTLY LOUD AND PRESSURED AT TIMES. APPETITE IS NORMAL. PT DENIES SI AT THIS TIME.
[2016-08-17 19:52] VITALS: BP 152/90
--- NOTE | 2016-08-18 05:41 | NUR ---
PATIENT AWAKE IN MIDDLE OF NIGHT, GOT PRN THORAZINE AT 0111, OTHERWISE SLEPT 1/2 OF THE NIGHT OR MORE.
[2016-08-18 07:43] VITALS: BP 146/80
--- NOTE | 2016-08-18 11:21 | NUR ---
PT IS MONITORED ON ONE TO ONE STATUS FOR SAFETY. HE HAS BEEN CALM AND COOPERATIVE WITH STAFF AND PEERS. HE IS TAKING HIS MEDS ORDERED WITH LITTLE RESISTANCE. PT DENIED SUICIDAL THOUGHTS WHEN ASKED. HE IS ATTENDING SOME OF THE GROUPS AND DOES APPEAR RESTLESS AT TIMES
[2016-08-18 12:11] VITALS: BP 136/73
--- NOTE | 2016-08-18 12:34 | CP SOUTH PROGRESS NOTE PSYCH ---
Psych (Inpt) Progress Note Progress Note Include the following elements, when applicable: Involvement in the active treatment of the patient with behavioral observations of the patient and the patient's response to the treatment. Review of the ongoing treatment process in the context of the treatment plan. Indication of how multi-disciplinary staff members are carrying out the treatment plan. Plans for future interventions and recommendations for revision of the treatment plan. Liaison with other physicians/providers. Progress Note: Patient seen chart reviewed d/w nursing staff He has no complaints today denies depression or anxiety sleeping well medication compliant no se reported. no behavioral difficulties. he is asking lintu dc. ASA. AAOX3 Guarded. no pmr/pma. fair eye contact. soft slow speech. euthymic mood flat affect. concrete denies si/hi or psychosis. i/j limited schizoaffecitve d/o renew 1;1 for safety, no med changes.
[2016-08-18 16:12] VITALS: BP 145/94
--- NOTE | 2016-08-18 17:51 | NUR ---
PT IS COOPERATIVE WITH STAFF AND PEERS, AND COMPLIANT WITH UNIT RULES. OFTEN IN [place], INTERACTING WITH OTHERS. HYPERACTIVE OFTEN PACING ABOUT UNIT. CURRENTLY ON A ONE TO ONE WITH A PATIENT SAFETY MONITOR. MOOD IS STABLE, AFFECT APPEARS BRIGHT, COMMUNICATION IS ORGANIZED AND APPEARS NORMAL IN ALL RESPECTS, SLIGHTLY LOUD AND PRESSURED AT TIMES. APPETITE IS NORMAL. PT CAN BE SLIGHTLY IRRITABLE AT TIMES. PT DENIES SI AT THIS TIME.
[2016-08-18 19:48] VITALS: BP 151/84
--- NOTE | 2016-08-19 04:42 | NUR ---
SLEPT WELL BEGINNING OF SHIFT AWAKE AT 0300 IN AND OUT OF BATHROOM PACING REDIRECTABLE. THORAZINE 100MG PO PRN DOSE GIVEN.
[2016-08-19 08:02] VITALS: BP 147/84
--- NOTE | 2016-08-19 13:17 | SOCIAL WORKER PROG NOTE PSYCH ---
Social Work Progress Note Progress Note Woke Jose Antonio who was sleeping around 1pm. Let him know I would be working with him from this point forward. He seemed tired. Stated he did sleep last night. He asked if he would be discharged today? I told him not today. I asked if he would sign a release for his Online Education Manager Thomas Ridley? Explained that it would be helpful to speak with him in terms of his discharge planning. He was agreeable to sign it. After signing it he stated he had to go to the bathroom and get a drink. He has not eaten his lunch yet. Encouraged him to go and eat.
--- NOTE | 2016-08-19 13:54 | NUR ---
PT WAS MONITORED ON ONE TO ONE STATUS ALL SHIFT UNTIL HE MET WITH DR HUTCHISON. HE HAS BEEN CALM AND COMPLIANT WITH STAFF REQUESTS AND WITH HIS MED REGIME. PT DENIED ANY THOUGHTS OF SUIICDE OR SELF HARM.PT HOPES TO BE DISCHARGED THIS WEEK
[2016-08-19 15:07] VITALS: BP 154/90
[2016-08-19 19:52] VITALS: BP 148/97
--- NOTE | 2016-08-19 20:40 | CP SOUTH PROGRESS NOTE PSYCH ---
Psych (Inpt) Progress Note Progress Note Include the following elements, when applicable: Involvement in the active treatment of the patient with behavioral observations of the patient and the patient's response to the treatment. Review of the ongoing treatment process in the context of the treatment plan. Indication of how multi-disciplinary staff members are carrying out the treatment plan. Plans for future interventions and recommendations for revision of the treatment plan. Liaison with other physicians/providers. Progress Note: PSYCHIATRIST NOTE, 08/19/2016: I discussed this patient's slow progress to date, current mental status, treatment and discharge planning with staff team today in the daily morning ITTM and our medical student, Tono, and I met patient together in individual session. Patient did not have much to say about the Probable Cause hearing last week at which the P.E.[facility]. committing him to hospital was upheld by Site Administrator of Probate; I told patient that since P.E.C. will over next weekend we will need to make certain decisions; if patient does not choose to sign into hospital as a voluntary patient we will have to decide by 08/23/2016 (actually by the day before, , 08/22/2016, as to whether we will go forward with a request for a probate commitment hearing or if we will permit patient to leave hospital, possibly A.M.A. Patient said he had missed his first scheduled appointment with [facility] in [place] but may still be willing to go there for aftercare. I emphasized to patient that his f/u was up to him but that if the same sort of thing happens in future as brought him into the E.D. on police order 3 times in the past 6 weeks he would run a serious risk of having his probation violated; patient said he would give permission for us to speak with his P.O. at [place] [address], Thomas Ridley to find out what stipulations the latter might put in place in view of the events of the past two months and since as we understand it patient continuing in regular outpatient treatment was one of the expectations in the original probation agreement. Impressively, patient has been accepting treatment with Thorazine, 200mg 3x/day since 08/16/2016 except for a single refused HS dose on the evening of 08/16. He has no complaints about his medication at this time and does not appear to be sedated during the daytime , though he does appear to have a "shuffling gait" not uncommon on significant doses of this medication. If this level of medication compliance and the improvement in patient's ability to interact positively with others continues at the current rate it may not be necessary to insist upon patient remaining in hospital beyond 08/23/2016. Patient was not irritable or grossly verbally inappropriate or abusive during our session today and showed a level of cooperativeness I had not noted previously. Perhaps the outcome of the 3rd Probable Cause hearing in some way influenced patient's apparent improvement in mental status.
--- NOTE | 2016-08-19 21:53 | NUR ---
PT IS VISIBLE ON UNIT, PACING AND APPEARING RESTLESS. PT IS SOCIAL AT TIMES WITH PEERS AND STAFF BUT MOSTLY STAYS TO HIMSELF. WENT TO BED FAIRLY EARLY IN THE EVENING. COOPERATIVE AND COMPLIANT WITH STAFF. NO COMPLAINTS OR SI REPORTED. PT HAS A STABLE MOOD AND FULL RANGE AFFECT.
--- NOTE | 2016-08-20 05:35 | NUR ---
PT REQUIRING REDIRECTION AT TIMES. PT SLEPT IN INTERVALS DURING THE NIGHT. PT WITH SHUFFLING GAIT, BLODDSHOT EYES. PT UP AT 0415, HOPPED IN THE SHOWER WITHOUT STAFF KNOWING. PT LOUD, CHILD-LIKE. PT BACK ASLEEP AT 0500.
[2016-08-20 07:26] VITALS: BP 144/74
--- NOTE | 2016-08-20 11:11 | SOCIAL WORKER PROG NOTE PSYCH ---
Social Work Progress Note Progress Note KRUNAL RICHEY JR. [id number] 1970 KRUNAL RICHEY JR. [id number] Pended Authorization # Client Authorization # Type of Request [id number] CONCURRENT Date of Admission/ Start of Services Requested From Submission Date 08/12/2016 08/20/2016 08/20/2016
--- NOTE | 2016-08-20 12:40 | CP SOUTH PROGRESS NOTE PSYCH ---
Psych (Inpt) Progress Note Progress Note Include the following elements, when applicable: Involvement in the active treatment of the patient with behavioral observations of the patient and the patient's response to the treatment. Review of the ongoing treatment process in the context of the treatment plan. Indication of how multi-disciplinary staff members are carrying out the treatment plan. Plans for future interventions and recommendations for revision of the treatment plan. Liaison with other physicians/providers. Progress Note: PSYCHIATRIST NOTE, 08/20/2016: I discussed this patient's slow progress to date, current mental status, treatment and discharge planning with staff team today in the daily morning ITTM. This morning, with patient's permission, I contacted his [employer], Thomas Ridley ([address] [place] [address]; telephone number: ; ext. [phone]; FAX: [phone]). He made it very clear that as far as he is concerned patient must both agree to and actually follow through with every aftercare treatment recommendation at the time of discharge or he will be in violation of probation; Mr. Ridley would like us to FAX him a letter on discharge outlining our treatment recommendations for patient and Mr. Ridley plans to hold patient accountable for following through with those recommendations. During individual session with patient today I found him to be less intractible and difficult to reason with than I have prior to this week; I explained the above to him and he understands very well that if he does not follow through with the discharge/aftercare plan we decide on he opens himself up to possibly being sent back to senior care which neither he nor we want. Patient seemed a little slowed down today but was alert and responsive, denying problems/side effects with current medication regimen of Thorazine, 200mg 3x/day; he had had a minor disturbance with another patient earlier today and accepted an additional dose of Thorazine, 100mg PRN with benefit. Patient said he would be willing to go to f/u appointments with [facility] (psychiatric and medical) but needs help with organizing transportation as he has no motor vehicle and is not able to walk long distances; he has identified transportation difficulties as having prevented some of his attendance at outpatient appointments in the past ("...and nobody will help me); he is very much against the local bus/[employer] option as he becomes more paranoid and apprehensive amongst "too many" people seated close to him in that contained space; the bus also takes a very long time to get him where he is going and this very much increases his stress.
--- NOTE | 2016-08-20 13:28 | NUR ---
patient began acting up at 1030am yelling and swearing in his room. PRN's given. had to be spoken to again at 1045am before prns took effect aand he settled down. patient drinks as much coffee as he is able to appearing to fighting affect of medications.
--- NOTE | 2016-08-20 13:50 | SOCIAL WORKER PROG NOTE PSYCH ---
Social Work Progress Note Progress Note Initiated a conversation with Jose Antonio about signing a release for [facility], so I could call them and make an appt. He initially appeared as if he was going to cooperate, but he began getting paranoid about what he was signing and began getting agitated. He crumpled up the paper and stated he wasn't signing anything. I explained that I was trying to help him discharge and that I needed his cooperation in helping get a discharge plan together. He went on to tell other staff in the area that I was the reason he was back here again and he worked with me once before and I caused his readmission. Griselda Guerra ( nursing program coordinator) tried to get him to sign the release. He went on to tell her that he didn't want an appt. with [facility] and he was not doing anything until his transportation security officer came to see him. At that point we decided to give him some space, as to not further agitate him. Patient knocked on my door later and was in agreement to sign the release for [facility]. He couldn't remember when his appt. was there. He mentioned difficulties getting places as he has to walk. I asked if he had ever taken [facility]? He said in the past, but they stopped giving him rides because he is on a bus line. He reports getting ill on the bus and can't take it. I told him I could call [facility] and see about getting him reconnected for liver. Printed out a PTR form that I will complete and fax back.
--- NOTE | 2016-08-20 14:00 | NUR ---
began yelling vulgar comments in his room. only responded to redirection for short period of time. prn given with security presence
[2016-08-20 15:56] VITALS: BP 151/80
--- NOTE | 2016-08-20 18:46 | NUR ---
PT IS AGITATED WITH STAFF AND PEERS, CURSING AND YELLING WHILE IN [place]. OFTEN IN [place], THOUGH RETURNING TO PT ROOM A TIES TO CALM. MOOD IS NOT STABLE, AFFECT APPEARS BRIGHT, COMMUNICATION IS ORGANIZED AND IS LOUD AND PRESSURED. APPETITE IS NORMAL. PT DENIES SI AT THIS TIME.
--- NOTE | 2016-08-21 06:29 | NUR ---
PATIENT WAS AWAKE FOR SEVERAL SHORT INTERVALS, OTHERWISE APPEARED TO SLEEP MOST OF THE NIGHT.
[2016-08-21 07:56] VITALS: BP 146/93
--- NOTE | 2016-08-21 09:09 | SOCIAL WORKER PROG NOTE PSYCH ---
Social Work Progress Note Progress Note Called [facility] in [place] and spoke with Debra Pan. She was the clinician that Jose Antonio was supposed to see on 08/05. I updated her and asked if we could reschedule his intake. She agreed to reschedule to 08/27/16 at 10am. Typed a letter to Graphics Intern Keyana outlining tx recommendations after discharge. This was faxed to him. Dr. Grey and I met with Jose Antonio together. We reviewed his follow up information with him and provided him with a copy of the letter that was being faxed to his PO. He was strongly encouraged to follow up with all recommendations, due to risk of being violated. Jose Antonio seemed emotional at the end of the discussion. He apologized for not getting to know us better and stated he gets paranoid. He said he trusts Dr. Grey. I gave him the number to [facility] [place] and reminded him that he will need to call in a couple of days to see if they have approved liver service for him. Jazmine Mcgee [facility] helped fax a PTR for him today in an effort to get him door to door service. He will not take the bus. Wished him well.
--- NOTE | 2016-08-21 10:44 | NUR ---
PT IS TENTATIVELY SCHEDULED FOR D/C TODAY TO [facility]. PT HAS BEEN TAKING HIS MEDS ON A REGULAR BASIS AND HAS BEEN GENERALLY CALM AND COOPERATIVE.HE DENIES ANY THOUGHTS OF SUICIDE OR SELF HARM. HE VERBALIZES A GOOD UNDERSTANDING OF HIS MED REGIME AND AGREES TO FOLLOW UP WITH [facility]. PT IS GIVEN EDUCATION R/T MANAGING HIS BIPOLAR D/O AND ON PREVENTING SUICIDE
[2016-08-21] MEDS ORDERED: NICOTINE PATCH1 EAC2 TOP (11:29)
[2016-08-21] MEDS ORDERED: CHLORPROMAZINE100 M2 PO (11:29)
--- NOTE | 2016-08-21 12:30 | CP SOUTH PROGRESS NOTE PSYCH ---
Psych (Inpt) Progress Note Progress Note Include the following elements, when applicable: Involvement in the active treatment of the patient with behavioral observations of the patient and the patient's response to the treatment. Review of the ongoing treatment process in the context of the treatment plan. Indication of how multi-disciplinary staff members are carrying out the treatment plan. Plans for future interventions and recommendations for revision of the treatment plan. Liaison with other physicians/providers. Progress Note: PSYCHIATRIST NOTE (DISCHARGE), 08/21/2016: I discussed this patient's progress to date, current mental status, treatment and discharge plans with staff team today in the daily morning ANTONETTE and Ariadna Cerna LCSW, and I met him again together in individual session prior to discharging him to outpatient treatment with [facility] in [facility], where he has an intake appointment scheduled for 08/27/2016 at 10am with Debra Pan LCSW. We went over with him in detail the contents of the letter his P.O., Thomas Ridley, had asked that we FAX to him on patient's day of discharge and gave patient his own copy of this letter for reference/to remind him if his probation obligations which Mr. Ridley has told me in direct telephone contact includes patient following all of our discharge/aftercare recommendations.
--- NOTE | 2016-08-21 13:49 | DISCHARGE SUMMARY REPORT-PSYCH ---
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 Psy Discharge Secondary Diag: R/0 Schizophrenia,chronic Hospital Course Course Allergies: Coded Allergies: bupropion (From WELLBUTRIN) (VOMITING, ILL 07/02/16) divalproex sodium (From DEPAKOTE) (VOMITING, ILL 07/02/16) haloperidol (From HALDOL) (VOMITING, ILL 07/02/16) lithium (VOMITING, ILL 07/02/16) lorazepam (From ATIVAN) (VOMITING, ILL 07/02/16) olanzapine (From ZYPREXA) (VOMITING, ILL 07/02/16) spinach (N/V 07/02/16) squash (N/V 07/02/16) sweet potato (N/V 07/02/16) Uncoded Allergies: AVACADO (N/V 07/02/16) ZUCCHINI (N/V 07/02/16) Hospital Course/TX Response: (see also, all initial/admission assessments and daily M.D./HEALTH AND WELLNESS SALES CONSULTANT and WEIGH MACHINE 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 He has been committed from the E.D. as Gravely Disabled on all 3 occasions and then requested a Probable Cause hearing on every occasion, the first two resulting in the telehealth nurse releasing him for lack of evidence of ongoing grave disability and each time failing to follow through with outpatient referrals/treatment or prescribed medications. Currently, despite patient claiming to understand that compliance with outpatient treatment being one of the stipulations of his probation he has not been compliant with treatment recommendations or even attendance at designated treatment venue ([facility] in [place], [place] His problematic behavior at the time of last two presentations , allegedly walking in/through moving traffic seemingly preoccupied with internal stimuli (?hallucinated voices, other) would appear to be potentially highly dangerous to his own safety and possibly also to motorists trying to avoid driving into him, etc. At this point, patient has told me directly that he believes he is "on my way back to [facility]" but will not or cannot collaborate ( at least with me) to attempt to avoid this consequence which he clearly does not want (e.g. fears he will be at risk/in personal danger back in [facility] and in this shows good judgment though not with respect to how best to avoid this eventuality). A third Probable Cause hearing is now scheduled for the early afternoon of 08/14/2016 (in the [facility] conference room). Discharge HBIPS - Tobacco Use Treatment Offered - EtOH/Drug Use D/O Treatment Offered Metabolic Screening - Screen if on a Neuroleptic Medication - Metabolic screening should include: - Blood Pressure, BMI, Glucose or Hgb A1c, & a - Lipid profile from within the past 365 days.
== END 2016-08-21 12:08 | DRG 885 ==
LOC: ERH 10:23 → CP SOUTH 08-12 10:01 → ERHI 08-12 10:01 → ENTRNSPT 08-12 13:08 → ENRESERV 08-12 13:10 → EDTRNSPTSTS 08-12 13:16 → CMPTRNSPT 08-12 13:17 → CP SOUTH 08-12 13:23 → ENPENDDIS 08-21 23:59
PROVIDERS: Emergency Medicine; ADMIT Psychiatry & Neurology Psychiatry
DX: F25.0 Schizoaffective disorder, bipolar type (principal)
CPT/HCPCS: 80307; G0463; G0480; J1200; J1630; J2060; J3230; J3490